=== PATIENT | male | born 1955 | race Caucasian/White ===

== ENCOUNTER → 2018-06-10 10:15 | Outpatient (CLI) | payer MEDICARE, BC, SELFPAY ==
--- NOTE | 2018-06-10 10:20 | DI.REPORT_ITS ---
SYMPTOM/DIAGNOSIS: F/U LT ANKLE FUSION LEFT ANKLE: Two views. Comparison is made with 03/2018 and 04/2018. There are again seen post surgical changes of a left ankle fusion. No change in alignment of the orthopedic hardware or osseous components is noted. IMPRESSION: Stable left ankle fusion.
== END ==
PROVIDERS: PCP Internal Medicine; Visit Provider Student in an Organized Health Care Education/Training Program
DX: Z47.89 Encounter for other orthopedic aftercare (principal); M19.072 Primary osteoarthritis, left ankle and foot; Z98.1 Arthrodesis status
CPT/HCPCS: 73600; L1902

== ENCOUNTER 2018-07-25 13:24 | Outpatient (CLI) | payer MEDICARE, BC, SELFPAY ==
--- NOTE | 2018-07-25 13:15 | DI.RAD_ITS ---
SYMPTOMS/DIAGNOSIS: S/P LT ANKLE FUSION LEFT ANKLE: Three views were obtained. Note is made of previously noted tibiotalofibular fusion with multiple fixation screws in place. The alignment appears unchanged in comparison with examination of June 10.
== END 2018-07-25 13:44 ==
PROVIDERS: Visit Provider Student in an Organized Health Care Education/Training Program
DX: M19.172 Post-traumatic osteoarthritis, left ankle and foot (principal); Z98.1 Arthrodesis status; Z47.89 Encounter for other orthopedic aftercare; I10 Essential (primary) hypertension; E11.9 Type 2 diabetes mellitus without complications; Z79.84 Long term (current) use of oral hypoglycemic drugs
CPT/HCPCS: 99213; 73610

== ENCOUNTER 2019-01-04 08:42 | Outpatient (CLI) | payer MEDICARE, BC, SELFPAY ==
--- NOTE | 2019-01-04 08:25 | DI.RAD_ITS ---
SYMPTOMS/DIAGNOSIS: LT ANKLE PAIN, S/P FUSION LEFT ANKLE: Comparison is made with [id number]. Hardware is again noted across the tibiotalar and fibulotalar as well as fibular tibial joints. There has been some interval increase in healing of the distal fibular osteotomy. The bones appear osteoporotic from disuse.
== END 2019-01-04 09:02 ==
PROVIDERS: PCP Internal Medicine; Referring Provider Internal Medicine; Visit Provider Student in an Organized Health Care Education/Training Program
DX: M25.572 Pain in left ankle and joints of left foot (principal); M81.0 Age-related osteoporosis without current pathological fracture; Z98.1 Arthrodesis status
CPT/HCPCS: 99213; 73610

== ENCOUNTER 2019-01-10 01:34 | Outpatient (CLI) | payer MEDICARE, BC, SELFPAY ==
--- NOTE | 2019-01-10 14:13 | DI.CT_ITS ---
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 The patient is status post fusion of the mortise joint, three threaded screws in place. Portions of the joint remain visible. There are prominent degenerative changes. The findings would be consistent with a failed left ankle fusion.
== END 2019-01-10 01:54 ==
PROVIDERS: PCP Internal Medicine; Visit Provider Student in an Organized Health Care Education/Training Program
DX: M96.0 Pseudarthrosis after fusion or arthrodesis (principal)
CPT/HCPCS: 73700

== ENCOUNTER 2019-02-17 08:47 | Outpatient (CLI) | payer MEDICARE, BC, SELFPAY ==
[2019-02-17 10:28] LABS: HCT 39.9 % (40.0-50.0); HGB 14.3 g/dL (13.5-17.5); Mean Corp. HGB Concentration 35.8 g/dL (32.0-36.0); Mean Corpuscular Hemoglobin 30.2 pg (27.0-33.0); Mean Corpuscular Volume 84.2 fL (80-95); Mean Platelet Volume 8.8 fL (8.0-11.0); Platelet Count 176 x1000/uL (130-400); RBC 4.74 m/cumm (4.50-6.00); RBC Distribution Width 14.5 % (11.8-14.1); White Blood Cell Count 7.62 k/cumm (4.4-10.8)
[2019-02-17 12:05] LABS: C-Reactive Protein 0.15 mg/dL (0.0-0.3)
--- NOTE | 2019-02-19 19:02 | W.PREOPHP ---
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 Details of surgery were discussed with patient as well as risks and pertinent anatomy. All questions were answered. History of Present Illness Chief Complaint: Left ankle pain Narrative: Ney is a 63-year-old male who comes in today for preop visit for his right ankle revision arthrodesis. He had previous fracture with surgical fixation, although it does not appear that there was any hardware put in, of his left ankle. This subsequently led to some severe arthritis which was treated with a fusion about [address] Mcbride. Since that fusion, some of the articular surfaces did not completely fuse, and he started to fall into a valgus position of the left ankle. He also has had continued ankle pain with ambulation that gets worse with continued ambulation. He now has resorted to walking with a cane. Because of the distorted anatomy of the ankle, and the continued pain that Ney is having, Dr. Mcbride does offer a repeat fusion of the left ankle with removal of current hardware and the placement of a nail fixation. He agrees with this plan and is anxious to proceed. Pertinent Surgical Information Previous heart history with persistent SVT that was corrected with ablation. He has had a left ankle fusion here since this ablation with no complications. Patient denies history of CVA, [place], angina, asthma, COPD, renal or liver disorders, hepatitis, bleeding disorders, immune or thyroid disorders. No complications from anesthesia. Review of Systems Constitutional Denies fever(s) ENT Denies dizziness and Denies sore throat Cardiovascular Denies chest pain, Denies palpitations and Denies dyspnea Respiratory Denies cough and Denies dyspnea Gastrointestinal Denies abdominal pain, Denies melena, Denies hematochezia, Denies diarrhea, Denies nausea and Denies vomiting Genitourinary Denies hematuria and Denies dysuria Neurologic Denies dizziness Endocrine Denies palpitations [facility] Medical History Gout (Acute 05/31/13) Nonunion of subtalar arthrodesis (Chronic) Anxiety DM (diabetes mellitus) GERD with esophagitis HTN (hypertension) Primary malignant neoplasm of colon SVT (supraventricular tachycardia) UC (ulcerative colitis) Surgical History Supraventricular tachycardia (Acute 02/16/13) Hx of ankle fusion (Acute) History of tonsillectomy (Chronic) Colonoscopy - MAC (03/15/17) EGD - MAC (03/15/17) Hemicolectomy (11/25/09) nonunion left humerus Social History Smoking/Tobacco Use Status: Former Tobacco Use Drug use: Daily Substance use type: marijuana Meds Home Medications Medication Instructions Recorded Confirmed Type aspirin 1 tab PO HS tab-cap 02/16/13 02/17/19 History blood-glucose meter [FreeStyle kit 02/16/13 02/17/19 History Lite Meter] FreeStyle Lite Strips #100 strip 07/24/13 02/17/19 History cholecalciferol (vitamin D3) 2,000 unit PO DAILY 08/03/16 02/17/19 History [Vitamin D3] omega-3 fatty acids-fish oil [Fish 1 ea PO HS 01/13/17 02/17/19 History Oil] saw palmetto-pumpkin seed oil 320 mg PO DAILY 12/01/17 02/17/19 History acetaminophen [Acetaminophen Extra 1,000 mg PO TID #90 tab 02/22/18 02/17/19 Rx Strength] lisinopril 1 tab PO DAILY #90 tab-cap 03/15/18 02/17/19 Rx metformin 1,000 mg PO BID #180 tab-cap 03/15/18 02/17/19 Rx quetiapine 25 mg PO BID #180 tab-cap 03/15/18 02/17/19 Rx cyanocobalamin (vitamin B-12) 1,000 mcg PO DAILY #90 tab-cap 04/18/18 02/17/19 Rx [Vitamin B-12] allopurinol 1 tab PO HS 02/17/19 02/17/19 History omeprazole 40 mg PO HS 02/17/19 02/17/19 History sertraline [Zoloft] 1.5 tab PO DAILY 02/17/19 02/17/19 History Allergies Allergy/AdvReac Type Severity Reaction Status Date / Time No Known Allergies Allergy Unverified 02/17/19 08:09 Exam HENMT Head: normocephalic and atraumatic General nose exam: no nasal discharge Throat: uvula midline and no uvular edema Other: soft palate rises symmetrically, no erythema Eyes Conjunctivae: conjunctivae normal Sclera: sclerae normal Pupils: PERRL Resp Effort & Inspection: normal respiratory effort Auscultation: clear to auscultation bilaterally and no wheezes Cardio Rate: regular rate Rhythm: regular rhythm Heart Sounds: S1 normal, S2 normal and no murmurs GI Palpation: soft, no hepatosplenomegaly and nontender Auscultation: normal bowel sounds Results Labs : 02/17/19 10:20
--- NOTE | 2019-02-19 19:12 | HPE_ITS ---
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 Details of surgery were discussed with patient as well as risks and pertinent an atomy. All questions were answered. History of Present Illness Chief Complaint: Left ankle pain Narrative: Ney is a 63-year-old male who comes in today for preop visit for his right ankle revision arthrodesis. He had previous fracture with surgical fixation, although it does not appear that there was any hardware put in, of his left ankle. This subsequently led to some severe arthritis which was treated with a fusion about [address] Mcbride. Since that fusion, some of the articular surfaces did not completely fuse, and he started to fall into a valgus position of the left ankle. He also has had continued ankle pain with ambulation that gets worse with continued ambulation. He now has resorted to walking with a cane. Because of the distorted anatomy of the ankle, and the continued pain that Ney is having, Dr. Mcbride does offer a repeat fusion of the left ankle with removal of current hardware and the placement of a nail fixation. He agrees with this plan and is anxious to proceed. Pertinent Surgical Information Previous heart history with persistent SVT that was corrected with ablation. He has had a left ankle fusion here since this ablation with no complications. Patient denies history of CVA, [place], angina, asthma, COPD, renal or liver disorders, hepatitis, bleeding disorders, immune or thyroid disorders. No complications from anesthesia. Review of Systems Constitutional Denies fever(s) ENT Denies dizziness and Denies sore throat Cardiovascular Denies chest pain, Denies palpitations and Denies dyspnea Respiratory Denies cough and Denies dyspnea Gastrointestinal Denies abdominal pain, Denies melena, Denies hematochezia, Denies diarrhea, Denies nausea and Denies vomiting Genitourinary Denies hematuria and Denies dysuria Neurologic Denies dizziness Endocrine Denies palpitations [facility] Medical History Gout (Acute 05/31/13) Nonunion of subtalar arthrodesis (Chronic) Anxiety DM (diabetes mellitus) GERD with esophagitis HTN (hypertension) Primary malignant neoplasm of colon SVT (supraventricular tachycardia) UC (ulcerative colitis) Surgical History Supraventricular tachycardia (Acute 02/16/13) Hx of ankle fusion (Acute) History of tonsillectomy (Chronic) Colonoscopy - MAC (03/15/17) EGD - MAC (03/15/17) Hemicolectomy (11/25/09) nonunion left humerus Social History Smoking/Tobacco Use Status: Former Tobacco Use Drug use: Daily Substance use type: marijuana Meds Home Medications Medication Instructions Recorded Confirmed Type aspirin 1 tab PO HS tab-cap 02/16/13 02/17/19 History blood-glucose meter [FreeStyle kit 02/16/13 02/17/19 History Lite Meter] FreeStyle Lite Strips #100 strip 07/24/13 02/17/19 History cholecalciferol (vitamin D3) 2,000 unit PO DAILY 08/03/16 02/17/19 History [Vitamin D3] omega-3 fatty acids-fish oil [Fish 1 ea PO HS 01/13/17 02/17/19 History Oil] saw palmetto-pumpkin seed oil 320 mg PO DAILY 12/01/17 02/17/19 History acetaminophen [Acetaminophen Extra 1,000 mg PO TID #90 tab 02/22/18 02/17/19 Rx Strength] lisinopril 1 tab PO DAILY #90 tab-cap 03/15/18 02/17/19 Rx metformin 1,000 mg PO BID #180 tab-cap 03/15/18 02/17/19 Rx quetiapine 25 mg PO BID #180 tab-cap 03/15/18 02/17/19 Rx cyanocobalamin (vitamin B-12) 1,000 mcg PO DAILY #90 tab-cap 04/18/18 02/17/19 Rx [Vitamin B-12] allopurinol 1 tab PO HS 02/17/19 02/17/19 History omeprazole 40 mg PO HS 02/17/19 02/17/19 History sertraline [Zoloft] 1.5 tab PO DAILY 02/17/19 02/17/19 History Allergies Allergy/AdvReac Type Severity Reaction Status Date / Time No Known Allergies Allergy Unverified 02/17/19 08:09 Exam HENMT Head: normocephalic and atraumatic General nose exam: no nasal discharge Throat: uvula midline and no uvular edema Other: soft palate rises symmetrically, no erythema Eyes Conjunctivae: conjunctivae normal Sclera: sclerae normal Pupils: PERRL Resp Effort & Inspection: normal respiratory effort Auscultation: clear to auscultation bilaterally and no wheezes Cardio Rate: regular rate Rhythm: regular rhythm Heart Sounds: S1 normal, S2 normal and no murmurs GI Palpation: soft, no hepatosplenomegaly and nontender Auscultation: normal bowel sounds Results Labs : 02/17/19 10:20
== END 2019-02-17 09:07 ==
PROVIDERS: PCP Internal Medicine; Visit Provider Student in an Organized Health Care Education/Training Program
DX: S92.102 Unspecified fracture of left talus (principal); M96.0 Pseudarthrosis after fusion or arthrodesis; I10 Essential (primary) hypertension; E11.9 Type 2 diabetes mellitus without complications; K21.9 Gastro-esophageal reflux disease without esophagitis; Z01.818 Encounter for other preprocedural examination; X58.XXXA Exposure to other specified factors, initial encounter
CPT/HCPCS: 36415; 85027; NC; 86140

== ENCOUNTER 2019-02-21 09:22 | Observation (INO) | payer MEDICARE, BC, SELFPAY ==
[2019-02-21] VITALS (13 sets, daily range): BP systolic 123–155; BP diastolic 63–95; PULSE 64–85; RESP 14–20; TEMP 36.3–37.1; O2SAT 94–100
[2019-02-21] MEDS: Lactated Ringers 1,000 ML 80 ML IV ×3 (09:50→17:15)
--- NOTE | 2019-02-21 10:26 | DI.RAD_ITS ---
SYMPTOMS/DIAGNOSIS: NONUNION OF SUBTALAR ARTHRODESIS C-ARM FLUOROSCOPY OF THE LEFT ANKLE: Fluoroscopy Time: 135.7 seconds/3.97 mGy Fluoroscopy was provided in the OR for Dr. Mcbride. Hard copy images show placement of an intramedullary flora through the calcaneus, talus and into the distal tibia for ankle fusion. Please see procedure note for details.
[2019-02-21] MEDS: ceFAZolin 2 GM/50 ML BAG IVPB (11:20)
[2019-02-21] MEDS: Bupivacaine 0.25% Pres-Free 30 ML VIAL (14:05)
[2019-02-21] MEDS: metFORMIN 500 MG TAB 1000 MG PO (17:32)
--- NOTE | 2019-02-21 18:24 | NUR.NOTE ---
Nursing Note: At 1620 hrs. Pt received from PACU staff Christina via stretcher, alert and oriented x 4., S/P L ankle hardware removed and Left toe fusion. Affected foot casted and slap inplaced with ariadna wrap drsg and draining liquid and with pinkish discharge in small amount noted. PACU nurse stated wet underneath because of the cast applied. Continue to monitor.
[2019-02-21] MEDS: Acetaminophen 500 MG TAB 1000 MG PO (19:52)
[2019-02-21] MEDS: Celecoxib 100 MG CAP 200 MG PO (19:52)
[2019-02-21] MEDS: QUEtiapine 25 MG TAB PO (19:52)
[2019-02-21] MEDS: Aspirin 325 MG TAB PO (21:38)
[2019-02-21] MEDS: Omeprazole 20 MG CAPCR 40 MG PO (21:38)
[2019-02-21] MEDS: Allopurinol 300 MG TAB PO (21:38)
[2019-02-21] MEDS: Omega-3 Fatty Acids 1000 MG CAP PO (21:39)
[2019-02-22 03:45] VITALS: BP 126/77; PULSE 70; RESP 18; TEMP 36.6; O2SAT 98
[2019-02-22] MEDS: Lactated Ringers 1,000 ML 80 ML IV (06:31)
[2019-02-22 07:27] VITALS: BP 138/78; PULSE 75; RESP 15; TEMP 36.9; O2SAT 95
--- NOTE | 2019-02-22 07:44 | DSE_ITS ---
Date of service: 02/22/19 Time of Service: 07:42 DS: Diagnosis Discharge Diagnosis (1) Ankle pain, left: Status: Acute (2) Arthritis of left ankle: Status: Acute (3) Failure of joint fusion: Status: Acute Discharge Plan Disposition Patient Disposition: HOME Condition: Good Discharge Details Reason For Visit: LEFT ANKLE ARTHRITIS Admit Date/Time: 02/21/19 09:22 Admit Provider: Demond Mcbride Attending Provider: Demond Mcbride Primary Care Provider: Aliza Liriano Hospital Course Hospital Course: Patient was admitted to the medical/surgical floor following the procedure for pain control and evaluation. It was tolerated well without any notable medical, surgical, or anesthetic complications. There was some serosanguineous discharge from the dressing which was reinforced and appeared benign. No acute medical issues. He was safe for discharge home. Home Meds and New Rx's Prescriptions: New celecoxib 200 mg capsule 200 mg PO BID PRN (Reason: pain) Qty: 60 RF: 1 oxycodone 5 mg tablet 5 mg PO Q4H Qty: 15 RF: 0 Continued aspirin 325 MG tablet 1 tab PO HS RF: 0 blood-glucose meter [FreeStyle Lite Meter] 1 EACH kit 1 kit Miscellaneous DIRECTED RF: 0 FreeStyle Lite Strips 1 EACH strip 1 strip Miscellaneous DAILY Qty: 100 RF: 6 omega-3 fatty acids-fish oil [Fish Oil] 1 EACH capsule 1 ea PO HS RF: 0 saw palmetto-pumpkin seed oil 160 MG capsule 320 mg PO DAILY RF: 0 quetiapine 25 MG tablet 25 mg PO BID Qty: 180 RF: 2 lisinopril 20 MG tablet 1 tab PO DAILY Qty: 90 RF: 4 metformin 1,000 MG tablet 1,000 mg PO BID Qty: 180 RF: 4 cyanocobalamin (vitamin B-12) [Vitamin B-12] 1,000 MCG tablet 1,000 mcg PO DAILY Qty: 90 RF: 6 sertraline [Zoloft] 100 MG tablet 1.5 tab PO DAILY RF: 0 omeprazole 40 MG capsule,delayed release(DR/EC) 40 mg PO HS RF: 0 allopurinol 300 MG tablet 1 tab PO HS RF: 0 acetaminophen [Acetaminophen Extra Strength] 500 MG tablet 1,000 mg PO TID Qty: 90 RF: 3 Discontinued cholecalciferol (vitamin D3) [Vitamin D3] 1,000 UNIT capsule 2,000 unit PO DAILY RF: 0 Discharge Instructions Additional Instructions: Activity: You are NON WEIGHT BEARING. You should keep the leg elevated as much as possible. You may wiggle your toes and move your hip and knee. Dressings: You should keep your splint clean and dry. Do NOT get wet or dirty. If you have issues with your splint, please call and ask for Dr. Mcbride. Medications: - You should take Tylenol and Celebrex around the clock for baseline pain. If the Celebrex is too expensive, you may take ibuprofen 600 mg 3 times daily. - You have been prescribed a stronger narcotic, oxycodone, for breakthrough pa in. - You should take aspirin per usual for blood clot prevention. Follow-up: 2 weeks Referrals: Demond Mcbride MD [ [facility]] - Activity:: Non weight bearing Equipment/Supplies:: No Equipment Needed Diet:: As Tolerated Discharge Orders Discharge Orders: Discharge Order (Routine); Ordered 02/22/19 Ordered By: Demond Mcbride DS: Data Vitals/I&O Vitals and I&O: Vital Signs Temperature 36.9 C 02/22/19 07:27 Temperature Source Tympanic 02/22/19 07:27 Pulse 75 02/22/19 07:27 Pulse Rhythm Regular 02/22/19 00:00 Respiratory Rate 15 02/22/19 07:27 Respiratory Effort 02/22/19 00:00 Respiratory Depth Normal 02/22/19 00:00 Respiratory Pattern Normal 02/22/19 00:00 Blood Pressure 138/78 02/22/19 07:27 Pulse Oximetry 95 02/22/19 07:27 Respiratory End-tidal CO2 36 02/21/19 15:55 Oxygen Delivery Method Room Air 02/22/19 07:27 Oxygen Flow Rate 0 02/22/19 07:27 Pain Level 0 02/22/19 03:45 Intake & Output 02/21/19 02/21/19 02/22/19 11:59 23:59 11:59 Intake Total 50 / 2403.333 2353.333 / 2403.333 1100 / 1100 Output Total 600 / 600 250 / 250 Balance 50 / 8746.047 3330.333 / 1803.333 850 / 850 Weight 107.5 kg 107.5 kg Intake: IV 50 / 2036.602 1187.333 / 4259.125 2338 / 1100 Oral 840 / 840 Output: Urine 300 / 300 250 / 250 Estimated Blood Loss 300 / 300 Other: Urine Color Yellow Light Candie Urine Appearance Clear Clear Urine Odor Normal Normal Comment VOID X 1, REPORTED BY PT AND PREV NURSE Emesis Description None Voiding Methods Urinal Urinal [facility] Medical History Gout (Acute 05/31/13) Nonunion of subtalar arthrodesis (Chronic) Anxiety DM (diabetes mellitus) GERD with esophagitis HTN (hypertension) Primary malignant neoplasm of colon SVT (supraventricular tachycardia) UC (ulcerative colitis) Surgical History Supraventricular tachycardia (Acute 02/16/13) Hx of ankle fusion (Acute) History of tonsillectomy (Chronic) Colonoscopy - MAC (03/15/17) EGD - MAC (03/15/17) Hemicolectomy (11/25/09) nonunion left humerus Family History Mother Diabetes Essential hypertension Dementia Heart disease Stroke Sister Diabetes Heart disease Neoplasm Brother Hyperlipidemia Social History Smoking/Tobacco Use Status: Former Tobacco Use Drug use: Daily Substance use type: marijuana
[2019-02-22] MEDS: Sertraline 50 MG TAB 150 MG PO (08:40)
[2019-02-22] MEDS: metFORMIN 500 MG TAB 1000 MG PO (08:40)
[2019-02-22] MEDS: Celecoxib 100 MG CAP 200 MG PO (08:40)
[2019-02-22] MEDS: Lisinopril 20 MG TAB PO (08:41)
[2019-02-22] MEDS: QUEtiapine 25 MG TAB PO (08:41)
[2019-02-22] MEDS: Cyanocobalamin 500 MCG TAB 1000 MCG PO (08:41)
[2019-02-22] MEDS: Acetaminophen 500 MG TAB 1000 MG PO (08:41)
--- NOTE | 2019-02-22 08:58 | ROE_ITS ---
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 SURGERY Hardware removal of left ankle with subtalar and tibiotalar fusion using an intramedullary nail. SURGEON Demond Mcbride M.D. CALL CENTER AGENT Merlyn Chan PA-C ANESTHESIA General with popliteal block. ESTIMATED BLOOD LOSS 300 cc COMPLICATIONS None DISPOSITION The patient was awakened from anesthesia and taken back to PACU in stable condition. INDICATIONS Ney is a 63 year old who had severe ankle arthritis with deformity. He had tried multiple conservati ve treatment options, but continued to have pain in the left ankle. Eventually, he underwent a left a nkle fusion by myself. He had initial good response to the surgery and he was able to increase his we ight bearing, but reached a point where he was unable to progress as fast or as fully as we were [place] for. The ankle fell into some slight valgus and the union did not seem to complete itself with a p artial union of the tibial talar joint. Given the valgus malalignment and the partial union, I recomm ended revision fusion. He also had signs of subtalar arthritis and given the deformity, I recommended that we treat this with a hindfoot nail and fuse both joints. I reviewed the risks of the procedure to include bleeding, infection, pain, stiffness, damage to nerves and vessels, damage to muscle and t endons, blood clot, skin breakdown. Despite these risks, he elected to proceed. PROCEDURE DESCRIPTION Ney was greeted in the Preoperative Holding Area. His identity was confirmed and the correct side wa s identified and marked. The consent was reviewed with the patient and signed. The patient was ta rhonda back to the Operating Room. A popliteal nerve block was then administered. He was then given a g eneral anesthetic. He was placed in the supine position with all bony prominences well padded. A bum p was placed underneath the left leg. A nonsterile tourniquet was placed high up on the left thigh. A bone foam leg positioner was used to elevate the leg off the table. The left leg was then prepped w ith ChloraPrep and draped in a standard fashion. Prophylactic antibiotics in the form of Cefazolin w ere given. A timeout was performed for safe surgery. The previous incision site was marked on the skin. This was extended both proximally and distally. Th e skin was incised sharply. This was taken down to full thickness flaps all the way down to the fibul a and into the subtalar joint location. The extensor digitorum brevis was split longitudinally distal ly and the ligaments around the distal and anterior fibula were resected. I was able to show the two screws of the lateral fibula. These were removed without difficulty. They were slightly loose. The tw o screws from the anterior aspect of the tibia and the talus were also removed. At this point, it was then noted that the talus was mobile. While it was not able to move completely, there was definitely movement within the remnant tibiotalar joint. The fibula had healed its previou s osteotomy. I therefore used the oscillating saw to create a new angled osteotomy approximately 8 ce ntimeters proximal to the fibula. The fibula was then dissected anteriorly and distally and rotated e xternally to expose the tibiotalar joint. It was then noticed that the talus was moving in a subtle f ashion, thus corresponding to the partial union. I used an osteotome to break apart the previous unio n site. Prior to entering in the tibiotalar joint, there was one posterior screw, which was removed. This was a percutaneously placed screw and it was able to be removed in the same percutaneous fashion using a K-wire to cannulate the screw. Once the screw was removed, the tibiotalar joint was then opened up w ith an osteotome. The joint was inspected with the Lamina cone classifier tender and joint distractor. A bur was u sed break through some of the eburnated and hard surfaces of the talus and the tibia. Effort was mad e to get as medial as possible from the medial shoulder to prevent any residual valgus malalignment. There was no cartilage remaining, but there was definitely no decent appearing subchondral bone. The bone on the talus was very dense and then very soft. This egg-shell type bone was difficult to prepar e. Using an osteotome, I fish scaled both surfaces of the tibia and the talus. I also used a microfra cture awl to make penetrating holes through both surfaces. The Lamina cone classifier tender was re-positioned and further preparation was performed. The Lamina cone classifier tender was then removed. Our attention was turned to the subtalar joint. Any of the ligamentous connections between the talus and the calcaneus were dissected to allow entry into the subtalar joint. This was distracted using th e Lamina cone classifier tender. All cartilage was then removed with a curette. There was some notable focal areas of arthritic change of address clerk the lateral aspect of the posterior facet of the subtalar joint. However, el sewhere there was notable cartilage. The cartilage was removed. Subchondral bone was then prepared us ing the fish scale technique using the osteotome. I also then penetrated the subchondral bone with a microfracture awl. Once again, the Lamina cone classifier tender was re-positioned and the focus was on the anterior medial facets. Th jose were a little bit more difficult to reach and they were prepared accordingly. The ankle was then checked for alignment. It still maintained some valgus, but appeared to be a normal constitutional v algus of the foot in a weightbearing position. The joint surfaces were easily re-approximated without any significant gapping. Therefore, we proceeded with placement of the nail. While holding the ankle in a relatively anatomic position, a starting point was localized in line wit h the medullary canal of the tibia and the lateral portion of the calcaneal tuberosity. The guidewire was placed percutaneously through the heel and onto the calcaneus. It was advanced at a 7-degree angle through the calcaneus and into the talus. The tibiotalar joint was distracted to ensu re that the guide pin was coming out through the central portion of the talus. X-ray was also used melissa in AP and lateral planes to confirm this adequate positioning. Once this was finalized, the skin a nd fat over the plantar aspect of the heel around the pin was incised. The plantar aponeurosis was al so incised. The soft tissue reamer was taken down to bone and the opening reamer was used to open up the calcaneus and talus. The 13-mm reamer was taken through the talus completely, but not into the ti kai. The ankle and subtalar joint was then placed in varus to allow more direct access to the tibia. A 5-mm opening reamer was then placed through the initial hole and into the tibia. Once this had pene trated the tibia, it was removed and a ball tip guidewire was placed through the heel and into the ti kai. Flexible reamers were used to open up the tibial medullary space starting from 8.5 millimeters a nd going up to 14.5 millimeters. A 13-mm x 180 mm nail was selected. The targeting guide was attached and confirmed to be aligned appropriately. I then placed the nail into the ankle without difficulty by hand. A few light mallet blows secured it into appropriate-looking position. Once in this position , the x-ray was used to confirm appropriately alignment with no inadvertent penetration through the t ibia. The targeting guide was attached and two posterior to anterior locking screws were placed. The screw passer drill and then the screws were placed. These both had great bite within the calcaneus. I then placed bone graft, which was collected from the initial dissection and joint preparation, as well as from the reaming combined with some demineralized bone matrix. This was placed within the subtalar fito int and the nail was malleted to compress the subtalar joint. With the targeting guide in place, I th en went to position the talus screw. Unfortunately, there was no adequate bone in this area. Since w hector had already fixed the calcaneus with excellent purchase, I did not want to move the nail and then r isk calcaneal purchase weight he screws. Therefore, after trying multiple times to utilize the talus nail, I did not. I eventually decided to just fix it against the tibia. More bone graft and deminer alized bone matrix was placed in the tibiotalar joint. Once again, this was all then malleted, compre ssing the joints of the tibiotalar and subtalar. With this in position, the targeting arm was once a gain placed for medial to lateral screws. Two screws were placed, one in the dynamic hole and one in the static hole. These were placed without difficulty. The targeting guide was removed and final x-r ays were performed showing adequate alignment of the ankle. The tourniquet was used for a portion of the case for joint preparation, but was removed for the nailing process. There was a persistent ooze from all the bony surfaces, but no abundant bleeding. The wounds were thoroughly irrigated. The fibul a was not secured with any screws, but simply soft tissue attachments from the anterior soft tissues, which were re-approximated to the posterior soft tissues. This deep layer was closed with #0- Vicry l. The deeper layers were closed with #3-0 Vicryl and the skin was closed with #4-0 Nylon. A mixture of bupivacaine and Exparel was used throughout all the deep tissues and subcutaneous tissues, focusin g primarily on the lateral wound and against the periosteum of the tibia, talus, calcaneus. The remai nder of the wounds were closed with #3-0 Vicryl and a #4-0 Nylon. The foot was dressed with Xeroform , 4x4s, ABD, Webril, and a posterior slab splint. At the end of the case, all counts were correct. He was taken back to the PACU in stable condition.
== END 2019-02-22 08:54 | disposition home or self-care (01) ==
LOC: PDS 09:36 → MS 16:26 → PDS 16:30 → MS 16:30
PROVIDERS: Admitting Provider Student in an Organized Health Care Education/Training Program; PCP Internal Medicine; Visit Provider Student in an Organized Health Care Education/Training Program
PROC: 0SGJ04Z Fusion of Left Tarsal Joint with Internal Fixation Device, Open Approach (ICD-10-PCS; CPT 27870; principal; 2019-02-21 10:45)
PROC: 0SGJ04Z Fusion of Left Tarsal Joint with Internal Fixation Device, Open Approach (ICD-10-PCS; CPT 28740; 2019-02-21 10:45)
DX: M25.572 Pain in left ankle and joints of left foot (principal); M19.072 Primary osteoarthritis, left ankle and foot; M96.0 Pseudarthrosis after fusion or arthrodesis; Z98.1 Arthrodesis status; E11.9 Type 2 diabetes mellitus without complications; K21.9 Gastro-esophageal reflux disease without esophagitis; I10 Essential (primary) hypertension; F41.9 Anxiety disorder, unspecified
CPT/HCPCS: 27870; 28725; 20680; C1713; NC; 73600; G0378; J0131; J0690; J1100; J2250; J2405; J3010

== ENCOUNTER 2019-03-08 09:55 | Outpatient (CLI) | payer MEDICARE, BC, SELFPAY ==
--- NOTE | 2019-03-08 09:47 | DI.RAD_ITS ---
SYMPTOM/DIAGNOSIS: S/P LT HIND FOOT NAIL, F/U LEFT ANKLE: Since the previous study, multiple screws have been removed from the mortise joint and distal fibula. Today, note is made of an intramedullary flora and screw fixation device which traverses the distal tibia and mortise joint and is fixed distally with screws in the calcaneus.
== END 2019-03-08 10:15 ==
PROVIDERS: PCP Internal Medicine; Referring Provider Internal Medicine; Visit Provider Student in an Organized Health Care Education/Training Program
DX: M19.072 Primary osteoarthritis, left ankle and foot (principal); Z98.1 Arthrodesis status; Z47.89 Encounter for other orthopedic aftercare
CPT/HCPCS: L4361; 73610

== ENCOUNTER 2019-03-20 10:17 | Outpatient (CLI) | payer MEDICARE, BC, SELFPAY ==
[2019-03-20 13:09] LABS: ALT 31 U/L (12-78); AST 21 U/L (15-37); Albumin 4.1 g/dL (3.4-5.0); Alkaline Phosphatase 184 U/L (46-116); Anion Gap 10.8 mmol/L (3-11); BUN 18 mg/dL (7-18); Bilirubin, Total 0.4 mg/dL (0.2-1.0); CO2 27.2 mmol/L (21.0-32.0); CREATININE 0.99 mg/dL (0.70-1.30); Calcium 9.3 mg/dL (8.5-10.1); Chloride 103 mmol/L (98-107); Glucose 182 mg/dL (70-100); Potassium 4.5 mmol/L (3.5-5.1); Sodium 141 mmol/L (136-145); Total Protein 7.9 g/dL (6.4-8.2); Uric Acid 5.4 mg/dL (3.5-7.2)
[2019-03-20 13:11] LABS: Hemoglobin A1C 6.8 % (4.5-6.2)
[2019-03-21 10:33] LABS: PSA, Screening 1.9 ng/ml (0-4.5)
== END 2019-03-20 10:37 ==
PROVIDERS: PCP Internal Medicine; Visit Provider Internal Medicine
DX: E79.0 Hyperuricemia without signs of inflammatory arthritis and tophaceous disease (principal); E11.9 Type 2 diabetes mellitus without complications; Z12.5 Encounter for screening for malignant neoplasm of prostate
CPT/HCPCS: 36415; 80053; 84153; 83036; 84550

== ENCOUNTER 2019-04-05 11:18 | Outpatient (CLI) | payer MEDICARE, BC, SELFPAY ==
--- NOTE | 2019-04-05 11:14 | DI.RAD_ITS ---
SYMPTOMS/DIAGNOSIS: S/P LT ANKLE HARDWARE REMOVAL LEFT ANKLE: Three views were obtained and show previously described ankle/hindfoot fusion with fixation flora extending from the tibia through the talus and calcaneus and two fixation screws in the calcaneus. The alignment appears essentially unchanged in comparison with examination of 03/08. Note is again made of nondisplaced fracture of the distal fibula.
== END 2019-04-05 11:38 ==
PROVIDERS: PCP Internal Medicine; Referring Provider Internal Medicine; Visit Provider Student in an Organized Health Care Education/Training Program
DX: M19.072 Primary osteoarthritis, left ankle and foot (principal); Z47.89 Encounter for other orthopedic aftercare; Z98.1 Arthrodesis status; Z87.81 Personal history of (healed) traumatic fracture; E11.9 Type 2 diabetes mellitus without complications; I10 Essential (primary) hypertension
CPT/HCPCS: 73610

== ENCOUNTER 2019-05-03 10:50 | Outpatient (CLI) | payer MEDICARE, BC, SELFPAY ==
--- NOTE | 2019-05-03 10:30 | DI.RAD_ITS ---
SYMPTOM/DIAGNOSIS: F/U LT ANKLE HARDWARE REMOVAL LEFT ANKLE: Three views. Comparison 04/05/19. There are post surgical changes of a left talocalcaneal fusion. The orthopaedic hardware appears stable. No evidence of hardware failure is seen. The old left distal fibular fracture appears stable. No new fractures or dislocations are present. There is persistent soft tissue swelling about the ankle.
== END 2019-05-03 11:10 ==
PROVIDERS: PCP Internal Medicine; Referring Provider Internal Medicine; Visit Provider Student in an Organized Health Care Education/Training Program
DX: M19.072 Primary osteoarthritis, left ankle and foot (principal); M25.572 Pain in left ankle and joints of left foot; Z47.89 Encounter for other orthopedic aftercare; Z98.1 Arthrodesis status
CPT/HCPCS: 73610

== ENCOUNTER 2019-06-26 09:27 | Outpatient (CLI) | payer MEDICARE, BC, SELFPAY ==
--- NOTE | 2019-06-26 09:22 | DI.RAD_ITS ---
SYMPTOMS/DIAGNOSIS: S/P LT ANKLE HARDWARE REMOVAL, FUSION LEFT ANKLE: The patient is status post left talocalcaneal fusion. The orthopedic hardware remains in good position when compared with the previous images. Also an old left distal fibular fracture is unchanged. There is no evidence of a superimposed acute fracture or dislocation.
== END 2019-06-26 09:47 ==
PROVIDERS: PCP Internal Medicine; Visit Provider Physician Assistant
DX: M19.172 Post-traumatic osteoarthritis, left ankle and foot (principal); Z98.1 Arthrodesis status; Z87.81 Personal history of (healed) traumatic fracture; Z47.89 Encounter for other orthopedic aftercare
CPT/HCPCS: 99213; 73610

== ENCOUNTER 2019-08-14 10:20 | Outpatient (CLI) | payer MEDICARE, BC, SELFPAY ==
[2019-08-14 12:19] LABS: TSH (W/Ref FT4) 1.09 uIU/mL (0.36-3.74)
== END 2019-08-14 10:40 ==
PROVIDERS: PCP Internal Medicine; Visit Provider Internal Medicine
DX: F32.9 Major depressive disorder, single episode, unspecified (principal)
CPT/HCPCS: 36415; 84443

== ENCOUNTER 2019-08-21 10:44 | Outpatient (CLI) | payer MEDICARE, BC, SELFPAY ==
--- NOTE | 2019-08-21 10:08 | DI.RAD_ITS ---
EXAM: XR ANKLE LT COMPLETE INDICATION: SURGERY F/U. COMPARISON: XR ANKLE LT COMPLETE from 06/26/2019 TECHNIQUE: 2D digital imaging was performed. FINDINGS: There are again seen postsurgical changes of an ankle and talocalcaneal fusion. Orthopedic hardware consists of a flora extending from the distal tibia through the talus into the calcaneus with proximal and distal screws. The orthopedic hardware appears stable. The distal fibular osteotomy appears sta ble. There is atherosclerosis. IMPRESSION: Stable postsurgical changes of the ankle and hindfoot.
== END 2019-08-21 11:04 ==
PROVIDERS: PCP Internal Medicine; Visit Provider Student in an Organized Health Care Education/Training Program
DX: M19.072 Primary osteoarthritis, left ankle and foot (principal); Z98.1 Arthrodesis status; Z47.89 Encounter for other orthopedic aftercare
CPT/HCPCS: 99213; 73610

== ENCOUNTER 2019-09-15 07:04 | Outpatient (CLI) | payer MEDICARE, BC, SELFPAY ==
[2019-09-17 13:22] LABS: Lamotrigine 1.6 mcg/mL (2.5 - 15.0)
== END 2019-09-15 07:24 ==
PROVIDERS: PCP Internal Medicine; Visit Provider Internal Medicine
DX: F32.9 Major depressive disorder, single episode, unspecified (principal); Z51.81 Encounter for therapeutic drug level monitoring
CPT/HCPCS: 36415; 80175

== ENCOUNTER 2020-03-28 12:02 | Outpatient (REF) | payer MEDICARE, BC, SELFPAY ==
[2020-03-28 12:59] LABS: CREATININE 1.25 mg/dL (0.70-1.30); Estimated GFR 58.34 (mL/min/1.73m2); Potassium 4.3 mmol/L (3.5-5.1)
[2020-03-28 13:03] LABS: Hemoglobin A1C 7.3 % (3.8-5.6)
[2020-03-29 08:18] LABS: PSA, Screening 1.8 ng/mL (0.0-4.5)
== END 2020-03-28 12:22 ==
LOC: LBN 12:02
PROVIDERS: PCP Nurse Practitioner; Visit Provider Nurse Practitioner
DX: R39.15 Urgency of urination (principal); E11.9 Type 2 diabetes mellitus without complications; I10 Essential (primary) hypertension; Z12.5 Encounter for screening for malignant neoplasm of prostate
CPT/HCPCS: 84153; 82565; 83036; 84132

== ENCOUNTER 2020-05-20 11:47 | Outpatient (CLI) | payer MEDICARE, BC, SELFPAY | END 2020-05-20 12:07 | PROVIDERS: PCP Nurse Practitioner; Referring Provider Nurse Practitioner; Visit Provider Student in an Organized Health Care Education/Training Program | DX: G56.01 Carpal tunnel syndrome, right upper limb (principal); Z98.1 Arthrodesis status | CPT/HCPCS: 99213 ==

== ENCOUNTER 2020-05-31 07:51 | Outpatient (CLI) | payer MEDICARE, BC, SELFPAY ==
[2020-06-01 14:40] LABS: COVID-19 RT-PCR Result NEGATIVE (Negative)
== END 2020-05-31 08:11 ==
PROVIDERS: PCP Nurse Practitioner; Visit Provider Student in an Organized Health Care Education/Training Program
DX: Z11.59 Encounter for screening for other viral diseases (principal); Z01.818 Encounter for other preprocedural examination
CPT/HCPCS: U0003

== ENCOUNTER 2020-06-04 07:56 | Day surgery (SDC) | payer MEDICARE, BC, SELFPAY ==
[2020-06-04 08:00] VITALS: BP 112/69; PULSE 66; RESP 18; TEMP 36.4; O2SAT 96
[2020-06-04] MEDS: Lactated Ringers 1,000 ML 80 ML IV (08:53)
--- NOTE | 2020-06-04 09:30 | PDOC.DSDIS_ITS ---
Discharge Plan Disposition Patient Disposition: HOME Condition: Good Discharge Details Reason For Visit: Right Carpal Tunnel Syndrome Attending Provider: Demond Mcbride Primary Care Provider: Arline Murphy Home Meds and New Rx's Prescriptions: New hydrocodone-acetaminophen 5-325 mg tablet 1 tab PO Q8H PRN PRN (Reason: pain) Qty: 3 RF: 0 acetaminophen 500 mg tablet 500 mg PO Q6H PRN PRN (Reason: pain) Qty: 90 RF: 3 ibuprofen 600 mg tablet 600 mg PO TID PRNQty: 60 RF: 3 Continued (DME) pen needle, diabetic [1st Tier Unifine Pentips] 32 gauge x 5/32 needle See Rx Instructions .ROUTE .MEDSUPPLY Qty: 100 RF: 3 hydrochlorothiazide 12.5 mg capsule 12.5 mg PO DAILY Qty: 90 RF: 3 lisinopril 20 mg tablet 40 mg PO DAILY Qty: 90 RF: 4 sertraline [Zoloft] 100 mg tablet 200 mg PO DAILY Qty: 140 RF: 4 aspirin 325 MG tablet 1 tab PO HS RF: 0 (DME) blood-glucose meter [FreeStyle Lite Meter] 1 EACH kit 1 kit Miscellaneous DIRECTED RF: 0 (DME) FreeStyle Lite Strips 1 EACH strip 1 strip Miscellaneous DAILY Qty: 100 RF: 6 Fish Oil 1 EACH capsule 1 ea PO HS RF: 0 lamotrigine [Lamictal] 25 mg tablet 50 mg PO BID Qty: 360 RF: 4 Hold Instructions: Home Medication placed on hold at Doctor's office metformin 1,000 mg tablet 1,000 mg PO BID Qty: 180 RF: 4 omeprazole 40 mg capsule,delayed release(DR/EC) 40 mg PO HS Qty: 90 RF: 3 Basaglar KwikPen U-100 Insulin 100 unit/mL (3 mL) insulin pen 29 unit SC QPM RF: 0 allopurinol 300 mg tablet 300 mg PO DAILY RF: 0 Discharge Instructions Stand Alone Forms: Reed Pedroza Tunnel Release Referrals: Demond Mcbride MD [ [facility] STAFF PHYSICIAN] - Activity:: Elevate Remove Dressings/Wound Care:: 48 hours Shower/Bathe:: 48 hours Diet:: As Tolerated Discharge Orders Discharge Orders: Discharge Order (Routine); Ordered 06/04/20 Ordered By: Demond Mcbride DS: Diagnosis Discharge Diagnosis (1) Carpal tunnel syndrome of right wrist: Status: Acute
[2020-06-04] MEDS: ceFAZolin 2 GM/50 ML BAG IVPB (09:33)
[2020-06-04] MEDS: Sodium Bicarbonate 50 MEQ/50 ML VIAL (09:38)
--- NOTE | 2020-06-04 10:22 | W.PM.OP ---
Date of service: 06/04/20 Time of Service: 10:01 Operative Note Operative Note DATE OF PROCEDURE: 06/04/20 PRE-OP DIAGNOSIS: Right Carpal Tunnel Syndrome POST-OP DIAGNOSIS: same PROCEDURE: Right Endoscopic Carpal Tunnel Release SURGEON: Demond Mcbride ANESTHESIA: SENAIT ESTIMATED BLOOD LOSS: 0 PATHOLOGY: none sent TOURNIQUET TIME: 6 COMPLICATIONS: None Patient was transported to: same day Patient's condition: stable Indications: I have seen Ney in clinic for symptoms of carpal tunnel syndrome. The numbness, tingling, and pain limited function. Clinical exam findings confirmed the diagnosis of carpal tunnel syndrome. Nonoperative measures such as bracing, time, activity modifications had been tried but disability and pain persisted. I discussed carpal tunnel release with the patient. I reviewed the risks of the procedure to include, but not limited to, bleeding, infection, pain, stiffness, incomplete release, damage to nerves or vessels, persistent numbness, recurrence. Despite these risks, the patient elected to proceed. Findings: There was tightened carpal tunnel. This was dilated and released successfully with the endoscopic with increased space within the tunnel. The antebrachial fascia was released proximally freeing the median nerve at the wrist. Procedure Description: Ney was greeted in the preoperative holding area where the correct side was identified and marked. The consent was reviewed with the patient and signed. The history and physical was updated. All questions were answered. Ney was taken back to the operating room. The patient was placed into the supine position on the operating room table with the right arm on an arm board. A nonsterile tourniquet was placed high onto the arm. All bony prominences were well padded. Prophylactic antibiotics in the form of Cefazolin were administered. The right arm was then prepped with Chloraprep and draped in a standard fashion with stockinette and extremity drape. A timeout to confirm correct identity, side and site, procedure, allergies, anesthesia, and medical concerns was performed. The surgical site was marked in the volar wrist creases in line with the radial border of the fourth ray. This area was anesthetized with approximately 6cc of 1% Lidocaine. The limb was then exsanguinated with an Esmarch. The skin was incised with a 15 blade, approximately 1cm. The skin only was cut and the deeper tissue was dissected bluntly with a tenotomy scissor, avoiding passing nerve and venous structures. The fascia was penetrated and opened bluntly. A two-prong skin hook was placed under this proximal fascial edge. A series of hamate finders were used to identify and dilate the carpal tunnel. Synovial elevator was used to free synovial attachments to the underside of the transverse carpal ligament. My thumb was kept in the palm to diana the distal extent of the carpal tunnel and correctly position the hand. The Microaire endoscope was inserted without difficulty and without resistance. Excellent visualization showed horizontally running fibers of the transverse carpal ligament (TCL). The distal extent of the TCL was visualized and the end of the scope palpated with the thumb. The blade was elevated and withdrawn from distal to proximal. The TCL was split into two flaps. The endoscope was reinserted to confirm complete release and any remnant ligament was incised. The scope was withdrawn and the proximal aspect of the carpal tunnel was grossly inspected and appeared release with the median nerve visible. The antebrachial fascia at the level of the wrist was then freed from the overlying skin and then the underlying median nerve with blunt dissection. This was transected longitudinally for about 3cm proximal to the wrist incision. The wound was then irrigated with easy flow of irrigant distally and proximally. The incision was closed with a single 4-0 Nylon suture. The wound was dressed with Xeroform, Gauze, Kerlix and Michael. The tourniquet was deflated with the initial dressing and held with some pressure. Blood flow returned easily to all digits with capillary refill less than 2 seconds. The patient tolerated the procedure well and was returned to the Same Day Surgery area in a stable condition suffering no known complication.
[2020-06-04 10:32] VITALS: BP 113/52; PULSE 58; RESP 17; TEMP 36.3; O2SAT 99
== END 2020-06-04 10:52 | disposition home or self-care (01) ==
PROVIDERS: PCP Nurse Practitioner; Visit Provider Student in an Organized Health Care Education/Training Program
PROC: 01N54ZZ Release Median Nerve, Percutaneous Endoscopic Approach (ICD-10-PCS; CPT 29848; principal; 2020-06-04 10:00)
DX: G56.01 Carpal tunnel syndrome, right upper limb (principal)
CPT/HCPCS: 29848; J0690; J1885; J2001

== ENCOUNTER 2020-06-27 14:46 | Outpatient (REF) | payer MEDICARE, BC, SELFPAY ==
[2020-06-27 13:52] LABS: Hemoglobin A1C 5.7 % (<5.7)
[2020-06-27 14:00] LABS: Calculated LDL 106 mg/dL (<100); Cholesterol 172 mg/dL (<200); HDL Cholesterol 27 mg/dL (40-60); Triglyceride 195 mg/dL (<150)
== END 2020-06-27 15:06 ==
LOC: LBN 14:46
PROVIDERS: PCP Nurse Practitioner; Visit Provider Nurse Practitioner
DX: E11.9 Type 2 diabetes mellitus without complications (principal)
CPT/HCPCS: 80061; 83036

== ENCOUNTER → 2020-09-11 08:19 | Outpatient (BNVA) | payer MEDICARE, BC, SELFPAY | PROVIDERS: PCP Nurse Practitioner; Referring Provider Nurse Practitioner; Visit Provider Internal Medicine Cardiovascular Disease | DX: I49.9 Cardiac arrhythmia, unspecified (principal); Z86.79 Personal history of other diseases of the circulatory system; I10 Essential (primary) hypertension; E11.9 Type 2 diabetes mellitus without complications | CPT/HCPCS: 99214 ==

== ENCOUNTER 2021-01-17 09:16 | Outpatient (CLI) | payer MEDICARE, BC, SELFPAY ==
--- NOTE | 2021-01-17 08:45 | DI.RAD_ITS ---
EXAM: XR PELVIS AP CLINICAL HISTORY: pain. TECHNIQUE: 2D digital imaging was performed. COMPARISON: No exams were available for comparison FINDINGS: The hip joints are well maintained. Dystrophic calcifications are seen adjacent to the left greater trochanter. No acute fracture or dislocation, lytic or sclerotic lesion is seen. The bones are norm ally mineralized. The visualized portions of the sacroiliac joints and symphysis pubis are unremarka ble. Vascular calcifications are seen in the soft tissues. IMPRESSION: No acute abnormality. DATA REPOSITORY: RADIATION DOSE DELIVERED:
--- NOTE | 2021-01-17 08:45 | DI.RAD_ITS ---
EXAM: XR KNEE RT 4V AP,LAT,DAVID,PAT CLINICAL HISTORY: pain. TECHNIQUE: 2D digital imaging was performed. COMPARISON: No exams were available for comparison FINDINGS: Periarticular spurring is seen in the lateral femoral tibial joint and the patellofemoral joint. The re is narrowing of the patellofemoral joint. No acute fracture or dislocation. The bones are normal ly mineralized. There is a small joint effusion. Vascular calcifications are seen in the soft tissu es. IMPRESSION: Degenerative changes of the right knee. DATA REPOSITORY: RADIATION DOSE DELIVERED:
== END 2021-01-17 09:17 | disposition home or self-care (01) ==
LOC: DIORS 09:16
PROVIDERS: PCP Nurse Practitioner; Referring Provider Nurse Practitioner; Visit Provider Student in an Organized Health Care Education/Training Program
DX: M25.551 Pain in right hip (principal); M54.16 Radiculopathy, lumbar region
CPT/HCPCS: 99213; 72170; 73564

== ENCOUNTER 2021-02-06 01:03 | Outpatient (CLI) | payer MEDICARE, BC, SELFPAY ==
--- NOTE | 2021-02-06 07:30 | DI.RAD_ITS ---
Exam(s) RF JOINT INJECTION FLUORO GUID EXAM: RF JOINT INJECTION FLUORO GUID CLINICAL HISTORY: R HIP INJ UNDER FLUORO,RT HIP PAIN,M25.551 TECHNIQUE: Fluoroscopy provided. Radiologist not present. CONTRAST MATERIAL: None COMPARISON: No exams were available for comparison FINDINGS: Fluoroscopy was provided during right hip therapeutic injection Submitted image(s) reveal intra-articular needle tip at the level of the femoral head-neck junction; lateral approach. Intra-articular contrast noted Please refer to the procedure report for complete details. Cumulative Dose: bowen Galindo=0.553 mGy IMPRESSION: RADIATION DOSE DELIVERED:
[2021-02-06] MEDS: Omnipaque 300 MG/ML 10 ML BTL IJ (14:42)
[2021-02-06] MEDS: Bupivacaine 0.5% Pres-Free 10 ML VIAL IJ (14:42)
[2021-02-06] MEDS: methylPREDNISolone ACETATE 80 MG/ML VIAL IM (14:43)
--- NOTE | 2021-02-06 15:56 | W.PROCNOTE ---
Date of service: 02/06/21 Time of Service: 13:56 Procedure Note Date of procedure: 02/06/21 Procedure: Right Hip Injection with Fluoroscopic Guidance Surgeon/Proceduralist/Physician: Demond Mcbride Procedure Diagnosis: Right Hip Pain Procedure Indications: Ney has had persistent pain of the RIGHT hip and thigh and knee. Noninvasive measures have been tried. To serve as both diagnostic and therapeutic, an injection under fluoroscopy was recommended. I had discussed the risks of the procedure and the patient elected to proceed. Procedure Description: Ney was greeted in the flouroscopy room. The correct side was identified and the consent was reviewed with the patient and signed. The patient was then placed in the supine position on the fluoroscopy table. The RIGHT hip was then prepped with Chloraprep. The anterolateral injection starting point was identiifed by bony landmarks and fluoroscopy. The skin and soft tissue in the tract of the injection was anesthetized with 1% Lidocaine. A spinal needle was then inserted deep into the hip joint at the level of the lateral femoral neck under fluoroscopic guidance. A small amount of Omnipaque solution was injected to confirm intraarticular placement. Once confirmed, the hip was injected with 6cc of 0.5% Bupivicaine and 80mg of Depo-Medrol. A bandaid was placed on the injection site. The patient tolerated the procedure well and noted improvement mild improvement of the hip region pre-injection pain but no major changes with the pain in the thigh and into the knee.
== END 2021-02-06 01:23 ==
PROVIDERS: PCP Nurse Practitioner; Visit Provider Student in an Organized Health Care Education/Training Program
DX: M16.11 Unilateral primary osteoarthritis, right hip (principal); M25.551 Pain in right hip; M25.561 Pain in right knee; M79.604 Pain in right leg
CPT/HCPCS: 20610; 77002; J1040

== ENCOUNTER 2021-02-19 03:06 | Outpatient (CLI) | payer MEDICARE, BC, SELFPAY ==
[2021-02-19 08:37] LABS: Potassium 4.6 mmol/L (3.5-5.1)
== END 2021-02-19 03:07 | disposition home or self-care (01) ==
LOC: LBO 03:06
PROVIDERS: PCP Nurse Practitioner; Visit Provider Nurse Practitioner
DX: I10 Essential (primary) hypertension (principal)
CPT/HCPCS: 36415; 82565; 84132

== ENCOUNTER → 2021-02-26 09:26 | Outpatient (BNVA) | payer MEDICARE, BC, SELFPAY | PROVIDERS: PCP Nurse Practitioner; Referring Provider Nurse Practitioner; Visit Provider Physician Assistant | DX: I47.1 Supraventricular tachycardia (principal); Z45.09 Encounter for adjustment and management of other cardiac device | CPT/HCPCS: 93285; 99211 ==

== ENCOUNTER 2021-03-13 00:46 | Outpatient (CLI) | payer MEDICARE, BC, SELFPAY ==
--- NOTE | 2021-03-13 07:45 | DI.US_ITS ---
Exam(s) US ABDOMEN RENAL EXAM: US ABDOMEN RENAL CLINICAL HISTORY: 2 cm left renal lesion on MRI, f/u gall stones,n28.9 TECHNIQUE: Ultrasound abdomen performed using standard protocol. COMPARISON: MR MRI LUMBAR SPINE WO CONTRAST from 02/11/2021 FINDINGS: ABDOMINAL AORTA AND IVC: Visualized portions normal caliber. PANCREAS: Normal where visualized. LIVER: Normal. Hepatopedal flow in the Portal Vein. The liver measures 18.7 cm in length. GALLBLADDER: Cholelithiasis. There is a 1.2 cm shadowing echogenic stone which may lie within the cy stic duct. No evidence of wall thickening. No pericholecystic fluid identified. BILIARY SYSTEM: Common bile duct measures < 7 mm. No intrahepatic biliary ductal dilation. ROD'S SIGN: Negative. SPLEEN: Not enlarged. ASCITES: None seen. Renal size in cm: Right: 11.5. Left: 11.9. Echogenicity: Normal. Hydronephrosis: No. Cyst or mass: There is a 1.7 x 1.4 x 1.6 cm isoechoic avascular exophytic nodule in the superior late ral aspect of the left lobe. It appears to correspond to the finding on the MRI. It does not meet t he criteria for simple cyst. Nephrolithiasis: No. Other findings: None. Bladder:The urinary bladder was not adequately prepped for this examination limiting evaluation. Ureteral jets: Right: Not visualized on this examination. Left: Not visualized on this examination. Prevoid vol:73 cc Prostate: 73 cc. Prostatic calcifications were noted. Renal color flow: Symmetric and within normal limits. IMPRESSION: 1. 1.7 x 1.4 x 1.6 cm isoechoic exophytic nodule at the superior lateral aspect of the left kidney. This corresponds to the finding on the MRI of the lumbar spine examination. It does not meet the cri teria for simple cyst. Further evaluation with pre and post contrast CT or MRI is recommended. 2. Cholelithiasis. There is a stone which lead may lie within the cystic duct. No biliary ductal di latation. Further evaluation with a CT scan should be considered. 3. Hepatomegaly. 4. Enlarged prostate gland. 5. Incomplete evaluation of the urinary bladder due to inadequate prep. Incidental findings DATA REPOSITORY:
== END 2021-03-13 01:06 ==
PROVIDERS: PCP Nurse Practitioner; Visit Provider Nurse Practitioner
DX: N28.89 Other specified disorders of kidney and ureter (principal); K80.20 Calculus of gallbladder without cholecystitis without obstruction; R16.0 Hepatomegaly, not elsewhere classified; N40.0 Benign prostatic hyperplasia without lower urinary tract symptoms
CPT/HCPCS: 76770; 76700

== ENCOUNTER 2021-04-08 01:26 | Outpatient (CLI) | payer MEDICARE, BC, SELFPAY ==
--- NOTE | 2021-04-08 08:15 | DI.CT_ITS ---
Exam(s) CT ABDOMEN PELVIS WO/W EXAM: CT ABDOMEN PELVIS WO/W CLINICAL HISTORY: renal lesion, N28.9 TECHNIQUE: CT examination of the abdomen pelvis was performed utilizing CT urogram protocol with non contrast CT followed by venous phase 7 minutes delayed phase imaging with intravenous infusion of 100 cc of Omnipaque 350. COMPARISON: No exams were available for comparison FINDINGS: Images obtained through the lung bases are unremarkable. Note is made of coronary artery calcificati on. Noncontrast CT shows a small nonobstructing right renal calculus, about 3 millimeters in diameter, an d a 3 millimeter in diameter nonobstructing left renal calculus. Images obtained through the lung bases are unremarkable. The liver is unremarkable in appearance. The spleen is unremarkable in appearance. The pancreas is unremarkable in appearance. Note is made of cholelithiasis. There is biliary dilatation Abdominal aorta and major visceral branches appear intact. No evidence of abdominal wall hernia. No evidence of abdominal or pelvic adenopathy. No focal bowel pathology. Right kidney is unremarkable appearance except for the aforementioned nonobstructing stone. Left kid erasmo contains a nonobstructing stone as well. There is 25 x 16 millimeter in diameter left renal midp ole mass with somewhat poorly defined borders, this measures about 24 Hounsfield units on noncontrast CT with enhancement to approximately 35 Hounsfield units venous phase and delayed imaging. Findings are suspicious for small renal neoplasm. A small to intermediate low-attenuation lesion is also seen medial aspect of the left kidney, measuri ng about 7 millimeters in diameter, too small to characterize with certainty.. IMPRESSION: Bilateral nonobstructing renal calculi. left midpole renal mass, measuring about 25 millimeters in diameter, suspicious for small renal neop lasm. An additional 7 millimeter indeterminate left renal cortical mass is seen. A 5 millimeter in diameter right renal indeterminate cortical mass is also noted. Recent ultrasound examination did no t show renal cysts. RADIATION DOSE DELIVERED: 2,384.91mGy.cm Total DLP 2,384.91mGy.cm DLP 2,384.91mGy.cm Total DLP RADIATION OPTIMIZATION: All CT scans at this facility use at least one of these dose optimization te chniques: automated exposure control; mA and/or kV adjustment per patient size (includes targeted exa ms where dose is matched to clinical indication); or iterative reconstruction.
[2021-04-08] MEDS: Omnipaque 350 MG/ML 100 ML BTL IJ (15:01)
[2021-04-08] MEDS: Normal Saline Flush 10 ML SYR IVP (15:05)
[2021-04-08] MEDS: Normal Saline - Diluent 50 ML VIAL IV ×2 (15:05→15:06)
== END 2021-04-08 01:46 ==
PROVIDERS: PCP Nurse Practitioner; Visit Provider Nurse Practitioner
DX: N20.0 Calculus of kidney
CPT/HCPCS: 74178; J3490

== ENCOUNTER 2021-05-01 15:12 | Outpatient (REF) | payer MEDICARE, BC, SELFPAY ==
[2021-05-01 20:16] LABS: HCT 41.4 % (40.0-50.0); HGB 14.4 g/dL (13.5-17.5); MCH 30.7 pg (27.0-33.0); MCHC 34.8 % (32.0-36.0); MCV 88.3 fL (80-95); MPV 9.6 fL (8.0-11.0); Platelet Count 191 10^3/uL (130-400); RBC 4.69 10^6/uL (4.36-5.78); RDW 13.4 % (11.8-14.1); RDW-SD 43.5 fL; WBC 8.95 10^3/uL (4.4-10.8)
[2021-05-01 20:27] LABS: Anion Gap 13.5 mmol/L (3-11); BUN 25 mg/dL (7-18); CO2 25.5 mmol/L (21.0-32.0); CREATININE 0.9 mg/dL (0.70-1.30); Calcium 9.2 mg/dL (8.5-10.1); Chloride 104 mmol/L (98-107); Glucose 84 mg/dL (74-106); Potassium 3.8 mmol/L (3.5-5.1); Sodium 143 mmol/L (136-145)
[2021-05-01 20:31] LABS: Hemoglobin A1C 5.3 % (<5.7)
== END 2021-05-01 15:13 | disposition home or self-care (01) ==
LOC: LBN 15:12
PROVIDERS: PCP Nurse Practitioner; Visit Provider Nurse Practitioner
DX: Z01.818 Encounter for other preprocedural examination; E11.42 Type 2 diabetes mellitus with diabetic polyneuropathy
CPT/HCPCS: 80048; 85027; 83036

== ENCOUNTER → 2021-09-24 08:22 | Outpatient (BNVA) | payer MEDICARE, BC, SELFPAY | PROVIDERS: PCP Nurse Practitioner; Referring Provider Nurse Practitioner; Visit Provider Physician Assistant | DX: I47.1 Supraventricular tachycardia (principal); Z45.09 Encounter for adjustment and management of other cardiac device | CPT/HCPCS: 93285; 99211 ==

== ENCOUNTER → 2022-01-30 00:14 | Outpatient (CLI) | payer MEDICARE, BC, SELFPAY ==
[2022-01-30 10:18] LABS: Abs Immature Grans 0.07 10^3/uL (0.0-0.06); Absolute Basophil Count 0.05 10^3/uL (0.0-0.2); Absolute Eosinophil Count 0.18 10^3/uL (0.0-0.7); Absolute Lymphocyte Count 1.35 10^3/uL (1.2-3.4); Absolute Monocyte Count 0.43 10^3/uL (0.1-0.8); Absolute Neutrophil Count 5.89 10^3/uL (1.2-6.7); Basophils % 0.6; Eosinophils % 2.3; HCT 43.1 % (40.0-50.0); HGB 14.4 g/dL (13.5-17.5); Immature Grans % 0.9; Lymphocytes % 16.9; MCH 30.3 pg (27.0-33.0); MCHC 33.4 % (32.0-36.0); MCV 90.7 fL (80-95); MPV 8.4 fL (8.0-11.0); Monocytes % 5.4; Neutrophils % 73.9; Platelet Count 201 10^3/uL (130-400); RBC 4.75 10^6/uL (4.36-5.78); RDW 13.6 % (11.8-14.1); RDW-SD 45.4 fL; WBC 7.97 10^3/uL (4.4-10.8)
[2022-01-30 10:26] LABS: Anion Gap 5.3 mmol/L (3-11); BUN 17 mg/dL (7-18); CO2 31.7 mmol/L (21.0-32.0); CREATININE 1.1 mg/dL (0.70-1.30); Calcium 9.3 mg/dL (8.5-10.1); Chloride 102 mmol/L (98-107); Glucose 108 mg/dL (74-106); Potassium 4.3 mmol/L (3.5-5.1); Sodium 139 mmol/L (136-145)
[2022-01-30] MEDS: Omnipaque 350 MG/ML 100 ML BTL IJ (11:17)
--- NOTE | 2022-01-30 11:18 | DI.CT_ITS ---
Exam(s) CT ABDOMEN WO/W EXAM: CT ABDOMEN WO/W CLINICAL HISTORY: F/U RENAL CELL CA, C64.9. TECHNIQUE: Imaging Protocol: Axial computed tomography images with coronal and sagittal reformatted images were created and reviewed. Pre contrast, venous phase and delayed images. CONTRAST MATERIAL: Intravenous: Omnipaque 350 Contrast volume:1002 ml Contrast route:IV - Oral: no COMPARISON: US ABDOMEN ULTRASOUND (P) from 03/11/2011 MR MRI LUMBAR SPINE WO CONTRAST from 02/11/2021 US US ABDOMEN RENAL from 03/13/[address] ABDOMEN PELVIS WO/W from 04/08/2021 FINDINGS: ABDOMEN: Lung Bases: Normal where visualized. Liver: Normal density. No measurable mass. Gallbladder and biliary tract: Cholelithiasis. No biliary dilation. Pancreas: Normal density, no abnormal calcifications or inflammatory process. Spleen: Prominent size,, 14 cm in length, stable. Kidneys: Normal size, contour and axis. No radiodense stones or obstructive uropathy. Mass at the sup erior pole of the left kidney is measured on the current exam at 2.9 x 2.5 cm . There are few other tiny hypodensities, too small to characterize. Adrenal glands: No masses seen. Abdominal Aorta: Abdominal portion non-dilated. Moderate atherosclerotic changes. Lymph nodes: Within normal limits. Bowel: Suture material seen at transverse colon. Right upper quadrant clips in the adjacent fat. Bones: Old low left lower rib fractures. Degenerative changes in the spine. IMPRESSION: Stable size mass upper pole left kidney. No new findings. RADIATION DOSE DELIVERED: 1,546.44mGy.cm Total DLP DATA REPOSITORY: All CT scans at this facility are submitted to the National Radiology Data Registry (NRDR) Dose Index Registry (DIR) with the [employer] ([employer]). RADIATION OPTIMIZATION: All CT scans at this facility use at least one of these dose optimization te chniques: automated exposure control; mA and/or kV adjustment per patient size (includes targeted exa ms where dose is matched to clinical indication); or iterative reconstruction.
== END ==
PROVIDERS: PCP Nurse Practitioner; Visit Provider Surgery
DX: N28.89 Other specified disorders of kidney and ureter (principal); C64.2 Malignant neoplasm of left kidney, except renal pelvis; K80.20 Calculus of gallbladder without cholecystitis without obstruction
CPT/HCPCS: 80048; 74170; 85025; J3490

== ENCOUNTER 2022-02-03 20:30 | Outpatient (REF) | payer MEDICARE, BC, SELFPAY ==
[2022-02-03 21:01] LABS: Bilirubin Negative (Negative); Blood Large (Negative); Clarity Cloudy (Clear); Glucose Negative (Negative); Ketones Negative (Negative); Leukocyte Esterase Negative (Negative); Nitrite Negative (Negative); Specific Gravity >= 1.030 (1.005-1.025); Urobilinogen 0.2 EU/dL (Up TO 0.2)
[2022-02-03 21:03] LABS: C & S Indicated? Yes; RBC >50 HPF (0-2)
== END 2022-02-03 20:31 | disposition home or self-care (01) ==
LOC: LBN 20:30
PROVIDERS: PCP Nurse Practitioner; Visit Provider Nurse Practitioner
DX: R31.9 Hematuria, unspecified (principal); N28.89 Other specified disorders of kidney and ureter
CPT/HCPCS: 81003; 81015; 87086

== ENCOUNTER → 2022-03-25 08:25 | Outpatient (BNVA) | payer MEDICARE, BC, SELFPAY | PROVIDERS: PCP Nurse Practitioner; Referring Provider Nurse Practitioner; Visit Provider Physician Assistant | DX: Z95.818 Presence of other cardiac implants and grafts (principal); I47.1 Supraventricular tachycardia | CPT/HCPCS: 93291 ==

== ENCOUNTER → 2022-04-22 00:36 | Outpatient (CLI) | payer MEDICARE, BC, SELFPAY ==
--- NOTE | 2022-04-22 | DI.RAD_ITS ---
Exam(s) XR CHEST 2V PA LATERAL EXAM: XR CHEST 2V PA LATERAL CLINICAL HISTORY: RENAL CELL CA, PREOP, C64.9. TECHNIQUE: 2D digital imaging was performed. COMPARISON: No exams were available for comparison FINDINGS: 2 views: Left-sided cardiac loop detector noted Heart size is normal. The mediastinum is not widened. Lungs are clear. No infiltrates nor pleural effusions. IMPRESSION: No acute pulmonary findings. DATA REPOSITORY: RADIATION DOSE DELIVERED:
== END ==
PROVIDERS: PCP Nurse Practitioner; Visit Provider Surgery
DX: Z01.818 Encounter for other preprocedural examination (principal); C64.9 Malignant neoplasm of unspecified kidney, except renal pelvis
CPT/HCPCS: 71046

== ENCOUNTER 2022-04-28 02:14 | Outpatient (CLI) | payer MEDICARE, BC, SELFPAY ==
[2022-04-28 10:46] LABS: Anion Gap 5.8 mmol/L (3-11); BUN 24 mg/dL (7-18); CO2 31.2 mmol/L (21.0-32.0); Calcium 8.7 mg/dL (8.5-10.1); Chloride 105 mmol/L (98-107); Glucose 102 mg/dL (74-106); Potassium 4.4 mmol/L (3.5-5.1); Sodium 142 mmol/L (136-145)
== END 2022-04-28 02:15 | disposition home or self-care (01) ==
PROVIDERS: PCP Nurse Practitioner; Visit Provider Nurse Practitioner
DX: N28.89 Other specified disorders of kidney and ureter (principal); R31.9 Hematuria, unspecified
CPT/HCPCS: 36415; 80048

== ENCOUNTER 2022-04-28 14:51 | Outpatient (REF) | payer MEDICARE, BC, SELFPAY | END 2022-04-28 14:52 | disposition home or self-care (01) | LOC: LBN 14:51 | PROVIDERS: PCP Nurse Practitioner; Visit Provider Nurse Practitioner ==

== ENCOUNTER 2022-05-06 11:03 | Outpatient (REF) | payer MEDICARE, BC, SELFPAY ==
[2022-05-06 09:50] LABS: Bilirubin Negative (Negative); Blood Negative (Negative); Clarity Clear (Clear); Glucose Negative (Negative); Ketones Negative (Negative); Leukocyte Esterase Negative (Negative); Nitrite Negative (Negative); Specific Gravity >= 1.030 (1.005-1.025); Urobilinogen 0.2 EU/dL (Up TO 0.2); pH 5.5 (5-8)
== END 2022-05-06 11:04 | disposition home or self-care (01) ==
LOC: LBO 11:03
PROVIDERS: PCP Nurse Practitioner; Visit Provider Surgery
DX: C64.9 Malignant neoplasm of unspecified kidney, except renal pelvis (principal)
CPT/HCPCS: 81003

== ENCOUNTER 2022-05-13 09:27 | Outpatient (CLI) | payer MEDICARE, BC, SELFPAY ==
[2022-05-13 11:42] LABS: Abs Immature Grans 0.08 10^3/uL (0.0-0.06); Absolute Basophil Count 0.03 10^3/uL (0.0-0.2); Absolute Lymphocyte Count 0.79 10^3/uL (1.2-3.4); Absolute Monocyte Count 0.77 10^3/uL (0.1-0.8); Absolute Neutrophil Count 7.68 10^3/uL (1.2-6.7); Basophils % 0.3; Eosinophils % 2.1; HGB 9.1 g/dL (13.5-17.5); Immature Grans % 0.8; Lymphocytes % 8.3; MCH 31.1 pg (27.0-33.0); MCV 89 fL (80-95); Monocytes % 8.1; Neutrophils % 80.4; Platelet Count 208 10^3/uL (130-400); RBC 2.93 10^6/uL (4.36-5.78); RDW 13.3 % (11.8-14.1); RDW-SD 43.4 fL; WBC 9.55 10^3/uL (4.4-10.8)
== END 2022-05-13 09:28 | disposition home or self-care (01) ==
LOC: LBO 09:32
PROVIDERS: PCP Nurse Practitioner; Visit Provider Student in an Organized Health Care Education/Training Program
DX: D64.9 Anemia, unspecified (principal)
CPT/HCPCS: 36415; 85025

== ENCOUNTER 2022-05-22 12:39 | Outpatient (CLI) | payer MEDICARE, BC, SELFPAY ==
[2022-05-22 12:53] LABS: Abs Immature Grans 0.41 10^3/uL (0.0-0.06); Absolute Lymphocyte Count 1.48 10^3/uL (1.2-3.4); Absolute Monocyte Count 0.63 10^3/uL (0.1-0.8); Absolute Neutrophil Count 9.42 10^3/uL (1.2-6.7); Basophils % 0.7; HCT 30.1 % (40.0-50.0); HGB 10.3 g/dL (13.5-17.5); Immature Grans % 3.3; Lymphocytes % 12.1; MCH 30.6 pg (27.0-33.0); MCHC 34.2 % (32.0-36.0); MCV 89 fL (80-95); MPV 8.5 fL (8.0-11.0); Monocytes % 5.1; Neutrophils % 76.8; Platelet Count 356 10^3/uL (130-400); RBC 3.37 10^6/uL (4.36-5.78); RDW 13.8 % (11.8-14.1); RDW-SD 44.7 fL; WBC 12.26 10^3/uL (4.4-10.8)
[2022-05-22 12:54] LABS: Absolute Basophil Count 0.09 10^3/uL (0.0-0.2); Absolute Eosinophil Count 0.25 10^3/uL (0.0-0.7)
== END 2022-05-22 12:40 | disposition home or self-care (01) ==
LOC: LBO 12:39
PROVIDERS: PCP Nurse Practitioner; Visit Provider Surgery
DX: C64.2 Malignant neoplasm of left kidney, except renal pelvis (principal)
CPT/HCPCS: 36415; 85025

== ENCOUNTER → 2022-06-12 09:36 | Outpatient (BNVA) | payer MEDICARE, BC, SELFPAY | PROVIDERS: PCP Nurse Practitioner; Referring Provider Nurse Practitioner; Visit Provider Surgery | DX: Z86.010 Personal history of colon polyps (principal); Z85.038 Personal history of other malignant neoplasm of large intestine; Z12.11 Encounter for screening for malignant neoplasm of colon ==

== ENCOUNTER 2022-06-12 10:24 | Outpatient (REF) | payer MEDICARE, BC, SELFPAY ==
[2022-06-12 11:03] LABS: Bilirubin Negative (Negative); Blood Small (Negative); Clarity Clear (Clear); Glucose Negative (Negative); Ketones Negative (Negative); Leukocyte Esterase Negative (Negative); Nitrite Negative (Negative); Urobilinogen 0.2 EU/dL (Up TO 0.2)
[2022-06-12 11:11] LABS: Bacteria Negative HPF (Negative); C & S Indicated? No; Casts Negative LPF (Negative); Crystals Negative HPF (Negative); Epithelial Cells Rare HPF (Negative); Mucus Negative (Negative); WBC 0-2 HPF (0-5)
== END 2022-06-12 10:25 | disposition home or self-care (01) ==
LOC: LBN 10:24
PROVIDERS: PCP Nurse Practitioner; Visit Provider Surgery
DX: R31.9 Hematuria, unspecified (principal); Z98.890 Other specified postprocedural states
CPT/HCPCS: 81003; 81015

== ENCOUNTER 2022-07-01 08:26 | Day surgery (SDC) | payer MEDICARE, BC, SELFPAY ==
--- NOTE | 2022-07-01 06:45 | W.COLOREPORT ---
Colonoscopy Report Date of procedure: 07/01/22 Pre-op diagnosis general: Colon Cancer Screening, Hx of colon cancer Post-op diagnosis procedure note: other (polyps) Procedure: Colonoscopy with polypectomy Surgeon: Aviva Anton Anesthesia Type: General:No Airway Estimated blood loss (mL): 3 Pathology: other (transverse polyp and sigmoid polyp) Complications: None Disposition: same day Indications: The patient? is a pleasant 66 -year-old male who is here to discuss another screening colonoscopy. ? He denies any changes in bowel habits, melena, hematochezia, unintentional weight loss or family history of colon cancer. He had a colonoscopy in 2017 and was found to have a sessile serrated adenoma.? He also has a hx of colon cancer diagnosed in 2009.? The procedure and risks were discussed.? The prep was reviewed in detail.? Risks, benefits and complications have been reviewed. Complications include but are not limited to bleeding, pain, perforation, missed small lesion/polyp, sore throat, aspiration and adverse reaction to the medications. Questions were entertained and answered to their satisfaction and they wished to proceed. No guarantees were given or implied. Prep: Miralax/Dulcolax Procedure Start Time: 10:18 Procedure End Time: 10:37 Retraction Time: 9 minutes Findings: 2 polyps Procedure Description: After informed consent was obtained the patient was taken to the procedure room and placed in a left decubitous position. Monitors were applied and a time out was done. The patients name, date of , procedure, allergies to medications and metal in their body was reviewed. The patient was then sedated. Once sedated and comfortable a rectal exam was done. External exam was normal. Internal exam revealed a normal sphincter tone and no palpable masses. The prostate felt smooth. The scope was then introduced and retro-flexed. No internal hemorrhoids, polyps or masses were identified on retro-flexion. The scope was then advanced to the anastamosis without difficulty. The ileocecal vlave and appendiceal orifice were identified. The prep was good. The scope was then slowly retracted over 9 minutes back into the rectum. Polyps were removed with a cold snare in the Transverse colon and with cold forceps in the sigmoid colon. There was no diverticulosis noted. The scope was removed and the patient was woken up and taken back to Same day surgery in stable condition. The patient tolerated the procedure well and there were no immediate complications.
--- NOTE | 2022-07-01 06:46 | W.PM.DSUDISC ---
Discharge Plan Disposition Patient Disposition: HOME Condition: Good Discharge Details Reason For Visit: colonoscopy Attending Provider: Aviva Anton Primary Care Provider: Arline Murphy Home Meds and New Rx's Prescriptions: Continued (DME) pen needle, diabetic [1st Tier Unifine Pentips] 32 gauge x 5/32 needle See Rx Instructions .ROUTE .MEDSUPPLY Qty: 100 3RF Rx Instructions: As directed lamotrigine 100 mg tablet 100 mg PO BID Qty: 180 4RF quetiapine 25 mg tablet 25 mg PO QHS Qty: 90 4RF Rx Instructions: 1-2 tabs at HS insulin glargine [Basaglar KwikPen U-100 Insulin] 100 unit/mL (3 mL) insulin pen 25 unit SC QPM Qty: 15 12RF (DME) blood-glucose meter [FreeStyle Lite Meter] 1 EACH kit 1 kit Miscellaneous DIRECTED Rx Instructions: DX:250. (DME) FreeStyle Lite Strips 1 EACH strip 1 strip Miscellaneous DAILY Qty: 100 Rx Instructions: DX:250. hydrochlorothiazide 12.5 mg capsule 12.5 mg PO DAILY Qty: 90 3RF lisinopril 20 mg tablet 20 mg PO DAILY Qty: 90 4RF allopurinol 300 mg tablet 300 mg PO DAILY Qty: 90 3RF metformin 1,000 mg tablet 1,000 mg PO BID Qty: 180 4RF omeprazole 40 mg capsule,delayed release(DR/EC) 40 mg PO HS Qty: 90 4RF verapamil 120 mg tablet 120 mg PO BID Qty: 180 3RF sertraline [Zoloft] 100 mg tablet 200 mg PO DAILY Qty: 180 3RF Discontinued bisacodyl [Dulcolax (bisacodyl)] 5 mg tablet,delayed release (DR/EC) 5 mg PO ONCE Qty: 4 0RF polyethylene glycol 3350 17 gram/dose powder 17 g PO ONCE Qty: 238 0RF Discharge Instructions Instructions: Colorectal Polyps (DC) Additional Instructions: Findings: 2 polyps Please call if you develop: fevers >101.5 Nausea or Vomiting Abdominal pain that is not transient Rectal bleeding that is more then a tbsp A hard abdomen and inability to pass gas DAY SURGERY UNIT POST ENDOSCOPY INSTRUCTIONS Instructions for everyone who is given Anesthesia: For your safety, please do the following for the next 24 Hours: a. Do not drive or operate dangerous equipment b. Do not drink alcohol beverages or use any recreational drugs for the first 24 hours or while taking pain medications. The medications in your body may have a reaction that can be dangerous. c. Do not make any important decisions or sign any important papers 1. Generally there are no restrictions on your activity after a day or so has gone by, but you may feel a bit fatigued for a few days. 2. After you arrive home you may have a light meal and return to a normal diet as you can tolerate it without feeling sick to your stomach. 3. After surgery, you may feel pain or discomfort. This should be only transient, but if it persists please contact your doctor. 4. If there are any questions regarding the findings of your procedure, please feel free to contact your doctor. 6. If you are unable to contact your doctor with a problem, contact the hospital at [phone]. 7. Continue all your regular medications unless directed otherwise. I understand the above instructions and have no questions. Signature of Patient or Responsible Adult Escort Date/Time Name of Responsible Adult Escort Signature of Nurse Date/Time Activity:: Activity as Tolerated Diet:: As Tolerated Discharge Orders Discharge Orders: Discharge Order (Routine); Ordered 07/01/22 Ordered By: Aviva Anton
--- NOTE | 2022-07-01 07:07 | W.ANESPRE ---
General Info Date of Service Date Performed: 07/01/22 Height: 5 ft 10 in Weight: 90.718 kg Body Mass Index (BMI): 28.7 Surgical Procedure: Operation Date: 07/01/22 10:20 Proposed Procedure Side Surgeon ken Anton MD Meds Allergies and Home Medications Allergies Allergy/AdvReac Type Severity Reaction Status Date / Time No Known Allergies Allergy Verified 07/01/22 08:55 Home Medication Medication Instructions Recorded blood-glucose meter (FreeStyle 02/16/13 Lite Meter kit) blood sugar diagnostic (FreeStyle #100 strips 07/24/13 Lite Strips) pen needle, diabetic 32 gauge x #100 ea 04/25/20 (1st Tier Unifine Pentips) insulin glargine 100 unit/mL (3 25 unit (0.25 mL) subcut QPM #15 mL 07/17/21 mL) subcutaneous pen (Netologyaglar KwikPen U-100 Insulin) lamotrigine 100 mg tablet 100 mg PO BID #180 tabs 10/02/21 quetiapine 25 mg tablet 25 mg PO QHS #90 tabs 10/02/21 allopurinol 300 mg tablet 300 mg PO DAILY #90 tabs 12/03/21 hydrochlorothiazide 12.5 mg capsule 12.5 mg PO DAILY #90 caps 12/03/21 lisinopril 20 mg tablet 20 mg PO DAILY #90 tab-caps 12/03/21 metformin 1,000 mg tablet 1,000 mg PO BID #180 tab-caps 12/03/21 omeprazole 40 mg capsule,delayed 40 mg PO HS #90 caps 12/03/21 release sertraline 100 mg tablet (Zoloft) 200 mg PO DAILY #180 tabs 03/02/22 verapamil 120 mg tablet 120 mg PO BID #180 tabs 03/02/22 bisacodyl 5 mg tablet,delayed 5 mg PO ONCE #4 tabs 06/12/22 release (Dulcolax (bisacodyl)) polyethylene glycol 3350 17 17 g PO ONCE #238 grams 06/12/22 gram/dose oral powder Current Visit Medications: Current Medications Generic Name Dose Route Start Last Admin Trade Name Freq PRN Reason Stop Dose Admin Hyoscyamine Sulfate 0.125 mg 07/01/22 06:47 Hyoscyamine 0.125 Mg Sl/Oral/Chew SL DIRECTED PRN Ringer's Solution 1,000 mls @ 80 mls/hr 07/01/22 06:00 IV 07/01/22 23:59 INFUSION FORMERLY [facility]–1983 IV Miscellaneous Supplies 1 each 07/01/22 06:00 Iv Access IV 07/01/22 23:59 DIRECTED MAYELA Ondansetron HCl 4 mg 07/01/22 06:47 Ondansetron 4 Mg/2 Ml Vial IVP Q4H PRN PRN Nausea / Vomiting Sodium Chloride 0 ml 07/01/22 06:00 Normal Saline Flush 10 Ml Syr IV 07/01/22 23:59 PRN PRN Sodium Chloride 0 ml 07/01/22 06:00 Normal Saline 10 Ml Vial IJ 07/01/22 23:59 DIRECTED PRN Sterile Water 0 ml 07/01/22 06:00 Water,Injection,Sterile 10 Ml Vial IJ 07/01/22 23:59 DIRECTED PRN PFSH Active Problems Active Problems: Problem Status Onset Code Anxiety 02/16/13 F41.9 Diabetic polyneuropathy associated with type 2 diabetes mellitus 12/01/17 E11.42 Gastroesophageal reflux disease with esophagitis 02/16/13 K21.0 Gout 05/31/13 M10.9 Hypertension I10 Primary malignant neoplasm of colon 11/10/09 C18.9 Sleep disorder 08/08/14 G47.9 Spinal stenosis M48.00 Ulcerative colitis 02/16/13 K51.90 Balance disorder R26.89 Left ankle pain M25.572 Irregular heart beat I49.9 Hip pain, right M25.551 Lumbar radiculopathy M54.16 Renal mass N28.89 Hematuria R31.9 Medical History Medical History Anxiety Back pain of lumbar region with sciatica (06/08/16) Balance disorder Pt. walks with a cane, he broke his ankle and never healed correctly, and he states he has some vertigo Cholelithiasis identified during ultrasound, non- symptomatic De Quervain's tenosynovitis, right (10/15/17) resolved- surgery 06/2020 Delayed surgical wound healing (04/22/18) Encounter for loop recorder check [employer] LINQ LNQ11 [id number] 09/19/2020 Fracture of left humerus (04/11/14) GERD with esophagitis H/O supraventricular tachycardia History of atrial fibrillation pt. states he had a-fib and an ablation 2013 History of tobacco use HTN (hypertension) Hyperlipidemia (02/16/13) Implantable loop recorder present Nonunion of subtalar arthrodesis Original fusion 02/23/2018 Primary malignant neoplasm of colon 2009 right hemicolectomy Sciatica of left side (12/01/17) Sessile colonic polyp (03/15/17) Status post placement of implantable loop recorder [employer] LINQ LNQ11 [id number] 09/17/2020 Supraventricular tachycardia (02/16/13) radioabation 09/2014 Pt. states he wears a heart monitor called a PVB (PVC). SVT (supraventricular tachycardia) 2013 radioablation UC (ulcerative colitis) 2009 - UC w/ large cecal dysplastic lesion Surgical History Surgical History Carpal tunnel syndrome of right wrist Status post ECTR DOS: 06/04/2020 Colonoscopy - MAC (03/15/17) EGD - MAC (03/15/17) Hemicolectomy (11/25/09) FOR ADENCARCINOMA; DR. BRANTLEY;right History of kidney surgery (~05/08/22) [facility] [place] for removal of 5 lesions History of tonsillectomy Hx of ankle fusion lt ankle nonunion left humerus Status post ankle fusion (02/21/19) Status post ankle fusion that resulted in failure Status post subtalar and tibiotalar fusion using IM nail DOS: 02/21/2019 Dr. Mcbride Tobacco Smoking/Tobacco Use Status: Former Tobacco Use Alcohol Alcohol Intake: never Substance Use Substance use: Daily Substance use type: marijuana Vital Signs and Lab Results Lab Results Blood Type / Crossmatch: No Data to Display Complete Blood Count: No Data to Display Complete Metabolic Panel: No Data to Display Liver Function Panel: No Data to Display Coagulation Panel: No Data to Display Cardiac Panel: No Data to Display Arterial Blood Gas: No Data to Display Venous Blood Gas: No Data to Display Pancreas Panel: No Data to Display Thyroid Panel: No Data to Display Infectious Disease: No Data to Display Blood Cultures: No Data to Display Toxicology Panel: No Data to Display Anesthesia Assessment and Plan Anesthesia History Personal History: No History of Anesthesia Complications Family History: No Family History of Anesthesia Complications Exercise Tolerance Exercise Tolerance: Metabolic Equivalents>4 Pertinent Negatives Pertinent Negatives: No Symptoms of GERD and No History of CVA/TIA Cardiac & Pulmonary Exam Cardiac Exam: Normal S1/S2 Heart Sounds Pulmonary Exam: Clear Bilateral Breath Sounds Implantable Cardiac Device Does patient have a Pacemaker or an ICD?: No Airway Exam Known Difficult Airway: No Mallampati Class: 2 Mouth Opening: Normal (> 3cm) Thyromental Distance: Greater than 3 cm Neck Range of Motion: Full ROM Neck Circumference: Normal Teeth Condition: Normal Dentition ASA Classification ASA Score: ASA 2 Emergency Case?: No NPO Status NPO Status: NPO Clears >2 hours, Solids >8 hours Anesthesia Plan Resuscitation Status: Full Code Anesthesia Technique: General Anesthesia Airway Planned: Natural Airway Monitors Used: Standard Monitors Preoperative Comments:: dry heaving with one episode of vomiting. none since
[2022-07-01 08:46] VITALS: BP 150/77; PULSE 68; RESP 17; TEMP 36.9; O2SAT 98
[2022-07-01] MEDS: Lactated Ringers 1,000 ML 80 ML IV (09:05)
[2022-07-01 10:13] VITALS: BMI 28.7
--- NOTE | 2022-07-01 10:29 | BOWEL_PTH ---
PATIENT: Tim Evans LOC: [facility] U#:[id number] AGE/SX: 66/M ROOM: RE07/01/[address]: Aviva Anton MD : [id number] BED: DIS: 07/01/2022 SPEC #: [id number] RECD: 07/01/22 12:59 STATUS: PASTORA REQ #: [id number] EYAL: 07/01/22 10:[address]: Aviva Anton DEPT: Surgical Specimen RECD BY: Cynthia Laird ENTERED: 07/01/22 13:00 SP TYPE: Bowel OTHR DR: Arline Murphy, PhD LABORATORY PHLEBOTOMIST Tissues: 1 - BIOPSY BOWEL 2 - BIOPSY BOWEL Procedures: GROSS AND MICRO LEVEL 4 Comments: [id number]
[2022-07-01 10:41] VITALS: BP 117/83; PULSE 76; RESP 18; TEMP 36.6; O2SAT 98
[2022-07-01 11:13] VITALS: BP 146/87; PULSE 67; RESP 17; TEMP 36.8; O2SAT 98
--- NOTE | 2022-07-01 12:22 | W.ANESPOSTOP ---
Postoperative Evaluation Date, Time and Location Date Performed: 07/01/22 Time Performed: 12:22 Patient Location: Day Surgery Unit Vital Signs Most Recent Imported Vital Signs: Most Recent Vital Signs Temp Pulse Resp BP Pulse Ox 36.8 C 67 17 146/87 H 98 07/01/22 11:13 07/01/22 11:13 07/01/22 11:13 07/01/22 11:13 07/01/22 11:13 Pain Score Most Recent Pain Score: Most Recent Pain Score Pain Level 0 07/01/22 11:13 Assessment Mental Status: Awake (Alert & Oriented to Patient Baseline) Airway and Respiratory Function: Patent airway with normal (patient baseline) respiratory exam Cardiovascular Function: Hemodynamically Stable Hydration Status: Adequately Hydrated Nausea & Vomiting: No Nausea or Vomiting Pain: Pt. Denies Any Pain Peripheral Nerve Block: Patient did not receive a nerve block Postoperative Comments:: Patient seen earlier today and was appropriate for home
== END 2022-07-01 11:25 | disposition home or self-care (01) ==
PROVIDERS: PCP Nurse Practitioner; Visit Provider Surgery
PROC: 0DJD8ZZ Inspection of Lower Intestinal Tract, Via Natural or Artificial Opening Endoscopic (ICD-10-PCS; CPT 45378; principal; 2022-07-01 10:15)
DX: Z12.11 Encounter for screening for malignant neoplasm of colon (principal); K63.5 Polyp of colon; Z85.038 Personal history of other malignant neoplasm of large intestine; Z86.010 Personal history of colon polyps
CPT/HCPCS: 45385; 88305

== ENCOUNTER 2022-10-28 01:20 | Outpatient (CLI) | payer MEDICARE, BC, SELFPAY ==
--- NOTE | 2022-10-28 06:45 | DI.US_ITS ---
Exam(s) US SCROTUM EXAM: US SCROTUM CLINICAL HISTORY: chronic rt testicular pain, no trauma, enlarged testicle,n50.89,n50.811 TECHNIQUE: Ultrasound of the testes performed using grayscale, color, and Doppler imaging. COMPARISON: US US ABDOMEN RENAL from 03/13/2021 FINDINGS: RIGHT HEMISCROTUM: Right testicle measures 3.2 by 1.2 x 2.3 cm. Left testicle measures 4.2 by 2.3 x 3 cm. No evidence of intratesticular mass on either side. Vascular flow is demonstrated in both testicles. Small right hydrocele noted. No hydrocele on the left side. Small varicocele on the left side not ed. No epididymal head cysts. IMPRESSION: 1. No evidence of testicular mass nor testicular torsion. 2. Small right hydrocele 3. Small left varicocele. DATA REPOSITORY:
== END 2022-10-28 01:40 ==
LOC: DI 01:20
PROVIDERS: PCP Nurse Practitioner Family; Visit Provider Nurse Practitioner Family
DX: N50.811 Right testicular pain (principal); N50.89 Other specified disorders of the male genital organs; N43.3 Hydrocele, unspecified
CPT/HCPCS: 76870

== ENCOUNTER 2022-12-28 03:52 | Outpatient (CLI) | payer MEDICARE, BC, SELFPAY ==
[2022-12-28 09:51] LABS: Abs Immature Grans 0.03 10^3/uL (0.0-0.06); Absolute Basophil Count 0.07 10^3/uL (0.0-0.2); Absolute Eosinophil Count 0.14 10^3/uL (0.0-0.7); Absolute Monocyte Count 0.63 10^3/uL (0.1-0.8); Absolute Neutrophil Count 6.87 10^3/uL (1.2-6.7); Basophils % 0.7; Eosinophils % 1.4; HCT 39.2 % (40.0-50.0); HGB 13.3 g/dL (13.5-17.5); Immature Grans % 0.3; Lymphocytes % 20.5; MCH 30.5 pg (27.0-33.0); MCHC 33.9 % (32.0-36.0); MCV 90 fL (80-95); MPV 8.7 fL (8.0-11.0); Monocytes % 6.5; Neutrophils % 70.6; Platelet Count 217 10^3/uL (130-400); RBC 4.36 10^6/uL (4.36-5.78); RDW 13.7 % (11.8-14.1); WBC 9.74 10^3/uL (4.4-10.8)
[2022-12-28 10:23] LABS: CREATININE 1.4 mg/dL (0.70-1.30); Estimated GFR 55.43 (mL/min/1.73m2)
== END 2022-12-28 03:53 | disposition home or self-care (01) ==
PROVIDERS: PCP Nurse Practitioner Family; Visit Provider Surgery
DX: C64.2 Malignant neoplasm of left kidney, except renal pelvis (principal)
CPT/HCPCS: 36415; 82565; 85025

== ENCOUNTER 2023-01-13 07:36 | Outpatient (CLI) | payer MEDICARE, BC, SELFPAY ==
--- NOTE | 2023-01-13 07:30 | RT.EKG_ITS ---
APPROVED REPORT Exam: Resting ECG Reason for Exam: SVT Patient Location: O HR:97 bpm ECG Measurements Heart Rate 97 AXIS [place] [id number] P [id number] QRSd 95 QRS -15 QT 358 T -69 QTc 455 Conclusion Atrial flutter with varied AV block,...A-rate 288, varied AV conduction Multiple ventricular premature complexes...V complexes w/ short R-R intervls Borderline left axis deviation...QRS axis (-15,-29) Nonspecific ST-T abnormalities
== END 2023-01-13 07:37 | disposition home or self-care (01) ==
PROVIDERS: PCP Nurse Practitioner Family; Visit Provider Internal Medicine Cardiovascular Disease
DX: I47.1 Supraventricular tachycardia (principal); I49.3 Ventricular premature depolarization; I48.92 Unspecified atrial flutter; R00.8 Other abnormalities of heart beat
CPT/HCPCS: 93010

== ENCOUNTER → 2023-01-13 13:42 | Outpatient (BNVA) | payer MEDICARE, BC, SELFPAY | PROVIDERS: PCP Nurse Practitioner Family; Referring Provider Nurse Practitioner Family; Visit Provider Internal Medicine Cardiovascular Disease | DX: I48.91 Unspecified atrial fibrillation (principal); E11.9 Type 2 diabetes mellitus without complications; I10 Essential (primary) hypertension | CPT/HCPCS: 93005; 99214 ==

== ENCOUNTER 2023-01-20 00:48 | Outpatient (CLI) | payer MEDICARE, BC, SELFPAY ==
--- NOTE | 2023-01-20 09:10 | DI.RAD_ITS ---
Exam(s) XR CHEST 2V PA LATERAL EXAM: XR CHEST 2V PA LATERAL CLINICAL HISTORY: RENAL CELL CA,C64.9. TECHNIQUE: 2D digital imaging was performed. COMPARISON: CR XR CHEST 2V PA LATERAL from 04/22/2022 FINDINGS: 2 views: Again noted is left anterior chest wall cardiac loop detector. Heart size upper normal. Mediastinum not widened. Lungs are clear. No infiltrates nor pleural effusions. No pulmonary edema. No pneumothorax. IMPRESSION: No acute pulmonary findings. DATA REPOSITORY: RADIATION DOSE DELIVERED:
--- NOTE | 2023-01-20 10:14 | DI.CT_ITS ---
Exam(s) CT ABDOMEN PELVIS WO/W EXAM: CT ABDOMEN PELVIS WO/W CLINICAL HISTORY: F/U RENAL CELL CA,C64.9. TECHNIQUE: Imaging Protocol: Axial computed tomography images with coronal and sagittal reformatted images were created and reviewed CONTRAST MATERIAL: Intravenous: Omnipaque-350 100cc Oral: None COMPARISON: CT CT ABDOMEN PELVIS WO/W from 04/08/[address] ABDOMEN WO/W from 01/30/2022 FINDINGS: VISUALIZED LUNG BASES: No nodules nor pleural effusions evident. ABDOMEN: There is tiny amount of perihepatic ascites evident, not previously present. LIVER: There are no ominous focal hepatic lesions. Mild dilatation of intrahepatic ducts noted. GALLBLADDER/BILIARY: Gallstones again noted. CBD is not dilated. PANCREAS: No evidence of pancreatic mass nor dilatation of the pancreatic duct. SPLEEN: Spleen size upper normal. No splenic lesions. Splenic and portal veins are patent. ADRENALS: Hypodense nodule in the medial limb of the right adrenal gland is again noted, measuring 1. 3 1.2 cm, unchanged. Thickening of the genu of the left adrenal gland also again noted. KIDNEYS:In the right kidney the previously described upper pole abnormality a significantly changed i n size and appearance. This now measures 6.6 cm wide by 6 cm AP by 5 cm cephalocaudal and contains b oth soft tissue and tissue and fat density. Also a few small peripheral mural base nodules, measurin g up to 6 x 7 mm.. These findings may be related to interval percutaneous intervention. There are s ome solid-appearing nodular densities in the peripheral aspect of this finding. Remainder of the lef t kidney appears unremarkable. There is no tumor thrombus within the left renal vein. In the opposite-right kidney there is a subtle hypodense area in the lateral aspect of the upper pole measuring 1.5 x 1.2 cm, not appearing to be a typical cyst. Cannot exclude possibly this is anothe r neoplasm in similar fashion to what was evident in the upper pole of the opposite-left kidney. The re is also a tiny 4 millimeter benign cortical cyst in the medial aspect of the right kidney. There are no calculi. No hydronephrosis. No evidence of tumor thrombus in the right renal vein.. URETERS: Solitary nondilated ureter on each side. ABDOMINAL AORTA: Moderate atherosclerosis. Upper normal diameter. LYMPH NODES:There is no retroperitoneal nor paraaortic adenopathy. ABDOMINAL WALL: No evidence of significant anterior abdominal wall nor inguinal hernia. GI: There is evidence of prior right hemicolectomy again noted. No evidence of small-bowel obstructi on. There is, however, circumferential thickening of wall of the sigmoid which exhibits thickness 5 millimeter. No diverticulosis nor diverticulitis. PELVIS: LYMPH NODES: There is no intrapelvic nor inguinal adenopathy. REPRODUCTIVE: Prostate gland is enlarged measuring 5.8 cm wide by 4.5 cm AP. There is no obturator a denopathy. URINARY BLADDER: No calculi nor obvious masses evident OSSEOUS: No lytic osseous lesions. Sclerotic benign appearing bone densities noted in the left hemip swetha probably benign bone islands. The most dense of these is in the posterior acetabulum left-side , unchanged from prior studies. Multilevel chronic advanced degenerative disc disease in the lumbar spine. No new lytic nor blastic osseous lesions evident. IMPRESSION: 1. Compared to the prior CT scans the previously described mass in the upper pole the left kidney has significantly changed in size and appearance, presently measuring 6.6 x 6.0 x 5.0 cm and containing multiple densities including fluid density, fat density, and peripheral nodular densities. Suspect t hat this may be related to interval percutaneous intervention/ablation therapy but correlation with t he actual history is recommended. There is no tumor thrombus in the left renal vein. 2. In the upper pole of the opposite-right kidney there is a 1.5 x 1.2 cm hypodense area which is too dense to be a simple cyst and may possibly represent additional neoplasm. 3. Small amount of perihepatic ascites noted. This was not previously present. 4. No evidence of mass in the urinary bladder. Enlarged prostate gland. 6. Cholelithiasis again noted. 7. Again noted is evidence of right hemicolectomy. No bowel obstruction. However, there is circumf erential thickening of long segment of the sigmoid, not associated with diverticuli. Suspect chronic -type colitis pattern. Can be further study with colonoscopy. RADIATION DOSE DELIVERED: 2,460.11mGy.cm Total DLP DATA REPOSITORY: All CT scans at this facility are submitted to the National Radiology Data Registry (NRDR) Dose Index Registry (DIR) with the [employer] (A[employer]). RADIATION OPTIMIZATION: All CT scans at this facility use at least one of these dose optimization te chniques: automated exposure control; mA and/or kV adjustment per patient size (includes targeted exa ms where dose is matched to clinical indication); or iterative reconstruction.
[2023-01-20] MEDS: Omnipaque 350 MG/ML 500 ML BTL-Imaging package IJ (10:23)
[2023-01-20] MEDS: Normal Saline Flush 10 ML SYR IVP (10:25)
== END 2023-01-20 01:08 ==
LOC: DI 00:48
PROVIDERS: PCP Nurse Practitioner Family; Visit Provider Surgery
DX: C64.2 Malignant neoplasm of left kidney, except renal pelvis (principal); R18.8 Other ascites; K80.20 Calculus of gallbladder without cholecystitis without obstruction; D35.01 Benign neoplasm of right adrenal gland; N28.89 Other specified disorders of kidney and ureter; N40.0 Benign prostatic hyperplasia without lower urinary tract symptoms; Z98.0 Intestinal bypass and anastomosis status
CPT/HCPCS: 71046; 74178

== ENCOUNTER → 2023-03-12 07:50 | Outpatient (BNVA) | payer MEDICARE, BC, SELFPAY | PROVIDERS: PCP Nurse Practitioner Family; Referring Provider Nurse Practitioner Family; Visit Provider Urology | DX: R39.89 Other symptoms and signs involving the genitourinary system (principal); N50.819 Testicular pain, unspecified; R35.1 Nocturia | CPT/HCPCS: 51798; 99215 ==

== ENCOUNTER → 2023-03-31 08:20 | Outpatient (BNVA) | payer MEDICARE, BC, SELFPAY | PROVIDERS: PCP Nurse Practitioner Family; Referring Provider Nurse Practitioner; Visit Provider Physician Assistant | DX: I48.91 Unspecified atrial fibrillation (principal); Z79.01 Long term (current) use of anticoagulants; Z95.818 Presence of other cardiac implants and grafts | CPT/HCPCS: 93298; 99213 ==

== ENCOUNTER 2023-04-08 04:09 | Outpatient (CLI) | payer MEDICARE, BC, SELFPAY ==
[2023-04-08 11:29] LABS: TSH (W/Ref FT4) 0.98 uIU/mL (0.36-3.74)
[2023-04-08 19:33] LABS: PSA, Diagnostic 2.1 ng/mL (<=4.5)
== END 2023-04-08 04:10 | disposition home or self-care (01) ==
LOC: LBO 04:09
PROVIDERS: Physician Assistant; PCP Nurse Practitioner Family; Visit Provider Urology
DX: R35.1 Nocturia (principal); F41.9 Anxiety disorder, unspecified; I48.0 Paroxysmal atrial fibrillation
CPT/HCPCS: 36415; 84153; 84443

== ENCOUNTER → 2023-04-12 10:21 | Outpatient (BNVA) | payer MEDICARE, BC, SELFPAY | PROVIDERS: PCP Nurse Practitioner Family; Referring Provider Nurse Practitioner Family; Visit Provider Urology | DX: R39.89 Other symptoms and signs involving the genitourinary system (principal); R31.29 Other microscopic hematuria | CPT/HCPCS: 81003; 99214 ==

== ENCOUNTER 2023-04-15 01:47 | Outpatient (CLI) | payer MEDICARE, BC, SELFPAY ==
[2023-04-15 10:18] LABS: Abs Immature Grans 0.03 10^3/uL (0.0-0.06); Absolute Basophil Count 0.05 10^3/uL (0.0-0.2); Absolute Eosinophil Count 0.12 10^3/uL (0.0-0.7); Absolute Neutrophil Count 5.44 10^3/uL (1.2-6.7); Basophils % 0.7; Eosinophils % 1.7; HCT 39.5 % (40.0-50.0); HGB 13.5 g/dL (13.5-17.5); Immature Grans % 0.4; Lymphocytes % 16.6; MCH 30.7 pg (27.0-33.0); MCHC 34.2 % (32.0-36.0); MCV 90 fL (80-95); Monocytes % 5.5; Neutrophils % 75.1; Platelet Count 188 10^3/uL (130-400); RDW 13.6 % (11.8-14.1); RDW-SD 44.7 fL; WBC 7.24 10^3/uL (4.4-10.8)
[2023-04-15 10:31] LABS: CREATININE 1.4 mg/dL (0.70-1.30); Estimated GFR 55.43 (mL/min/1.73m2)
[2023-04-15] MEDS: Gadoterate meglumine 20 ML VIAL IVP (10:47)
[2023-04-15] MEDS: Normal Saline - Diluent 50 ML VIAL IJ (10:48)
--- NOTE | 2023-04-15 11:30 | DI.MRI_ITS ---
Exam(s) MR ABDOMEN WO/W EXAM: MR ABDOMEN WO/W CLINICAL HISTORY: RENAL CELL CA, C64.9, S/P LT PARTIAL NEPHRECTOMY, ? RT RENAL MASS ON CT TECHNIQUE: Multiplanar multisequence MRI of the Abdomen was performed. CONTRAST MATERIAL: IV Contrast: 18 mL of Dotarem contrast administered. COMPARISON: CT CT ABDOMEN WO/W from 01/30/[address] ABDOMEN PELVIS WO/W from 01/20/2023 FINDINGS: Liver: Unremarkable. Pancreas: Unremarkable. Gallbladder and Bile Ducts: Single gallstone. No gallbladder wall thickening or biliary dilatation. Adrenals: Stable tiny nodules. Kidneys: Left kidney: Mild interval decrease in size of previously noted collection at the lateral ri ght kidney measuring 6 x 4.4 by 4.5 cm. Mixture of fluid and fat contents. No abnormal enhancement. Right kidney: Several tiny cysts are seen. No mass is noted at the upper pole of the left kidney. T here is a small fluid density collection a slight defect which may indicate scarring. It is difficul t to evaluate due to its small size and motion artifact. It is measured maximally at 9 millimeters, best seen on the coronal T2 sequence. This was measured at 1.5 cm on the prior exam. Spleen: Mildly prominent, stable. Normal signal. Aorta: Unremarkable. Soft Tissues: Unremarkable. Bone: T11 hemangioma. Advanced degenerative disc changes and scoliosis noted. Lymph Nodes: Unremarkable. Bladder unremarkable. Prostate mildly enlarged. IMPRESSION: Interval decrease in size of fat and fluid density lesion of the left kidney likely post surgical. No mass is visible at the superior pole of the right kidney. There is a small area of scarring and a small fluid collection versus cyst. DATA REPOSITORY:
== END 2023-04-15 02:07 ==
LOC: DI 01:47
PROVIDERS: PCP Nurse Practitioner Family; Visit Provider Surgery
DX: C64.9 Malignant neoplasm of unspecified kidney, except renal pelvis (principal)
CPT/HCPCS: 74183; 82565; 85025

== ENCOUNTER 2023-04-22 15:09 | Outpatient (CLI) | payer MEDICARE, BC, SELFPAY ==
--- NOTE | 2023-04-22 10:00 | DI.US_ITS ---
APPROVED REPORT EXAM: Comprehensive 2D, Doppler, and color-flow Echocardiogram Patient Location: Out-Patient Dumpster Operator: Juan Naranjo RDMS, RVT Indications: paroxysmal afib, HTN Other Information Study Quality: Adequate Conclusion Normal left ventricular wall thickness and chamber size. Ejection fraction is 60%. Wall motion is n ormal Normal right ventricular size and systolic function Left atrium is mildly dilated. Right atrial size is normal Aortic valve is trileaflet and sclerotic with trace regurgitation Normal mitral valve with mild regurgitation. Mild mitral annular calcification Normal tricuspid valve with mild regurgitation. Estimated right ventricular systolic pressure is 26 mmHg Dilated ascending aorta measuring 4.01 cm Wall motion Left Ventricle The left ventricle is normal size. The left ventricular systolic function is normal. The left ventric ular ejection fraction is within the normal range. There is normal left ventricular wall thickness. T here is normal LV segmental wall motion. There is no ventricular septal defect visualized. LVEF is 60 %. Right Ventricle The right ventricle is normal size. The right ventricular systolic function is normal. The RVSP is 25 .7 mmHg. Atria Left atrium is mildly dilated. The right atrium size is normal. The interatrial septum is intact with no evidence for an atrial septal defect. Aortic Valve The Aortic valve is sclerotic. Aortic valve is trileaflet. There is no aortic valvular stenosis. Trac e aortic regurgitation. Mitral Valve The mitral valve is normal in structure. No evidence of mitral valve stenosis. Mild mitral regurgitat ion. Tricuspid Valve The tricuspid valve is normal in structure. There is no tricuspid valve stenosis. Mild eccentric tric uspid regurgitation. Pulmonic Valve The pulmonary valve is normal in structure. There is no pulmonic valvular stenosis. Trace to mild pul francoise regurgitation. Great Vessels Aortic root is borderline dilated. The ascending aorta is moderately dilated. Aortic arch is normal i n caliber. IVC is normal in size and collapses >50% with inspiration. Pericardium There is no pericardial effusion. 2D Dimensions IVSD d PLAX 0.79 cm M: 0.6-1.2 LV Vol A2C d MOD 193.7 mL LVPW d PLAX 0.79 cm M: 0.6 - 1.2 LV Vol A4C d MOD 172.2 mL LVID d PLAX 4.76 cm M: 4.2 - 5.8 LA vol/ BSA A4C s A-L 39.2 mL/m2 LVDs 3.45 cm M: 2.5 - 4.0 LA Area A4C s MOD 24.01 cm2 Ao Root d 3.78 cm M: 3.1 - 3.7 LV EF A4C MOD 51.1 % Ao Asc Diam d 4.01 cm M: 2.6 - 3.4 LV EF A2C MOD 51.8 % LV EF Teichholz 52.6 % LV EF Biplane MOD 52.7 % LVEF (Hernandez's) 52.67 % M: 52 - 72 SV 100.85 mL LV Volume 142.68 mL M: 62 - 150 SV Index 49.46 mL/m2 LV Volume Index 69.94 mL/m2 M: 34 - 74 LV Vol Biplane MOD 191.5 mL FS 26.95 % M-Mode TAPSE 2.15 cm (M/F) >1.7 LV Diastology MV E' medial 0.178 (>0.07 m/s) E/A Ratio 1.9 LV E/e MED 5.20 (<14) MV E Vmax 0.93 (0.4-1.3 m/s) MV E' lateral 0.207 (>0.1 m/s) MV A Vmax 0.50 (0.4-1.3 m/s) LV E/e LAT 4.50 (<14) MV E/A Ratio 1.75 MV E/E' medial 5.24 MV E/E' lateral 4.50 Aortic Valve LVOT Area 4.22 cm2 AoV Area Vmax 2.92 cm2 LVOT Vmax 0.84 m/s AoV Area/ BSA (Vmax) 1.43 cm2/m2 LVOT Mean Luis. 0.56 m/s NEEMA Mean Luis. 2.82 cm2 LVOT Peak Grad 2.8 mmHg NEEMA Mean Luis. Index 1.38 cm2/m2 LVOT Mean Grad 1.5 mmHg AR DT 1815 msec LVOT VTI 0.178 m AR PHT 526 msec LVOT Diam s 2.30 cm AoV Vmax 1.21 m/s Velocity Ratio 0.69 AoV Mean Luis. 0.84 m/s AoV Peak Grad 5.9 mmHg LVOT SV 75.08 mL AoV Mean Grad 3.2 mmHg AoV VTI 0.240 m AoV Area VTI 3.13 cm2 AoV Area/ BSA (VTI) 1.53 cm/m2 Mitral Valve MV DT 133 (160-240 msec) MV PHT 39 msec MV Area PHT 5.69 cm2 MV VTI 0.214 m MV Area VTI 3.51 (4.0-6.0 cm2) Pulmonary Valve PV Vmax 0.76 (0.5-1.5 m/s) RVOT Peak Gr. 0.88 mmHg PV Peak Grad 2.3 mmHg RVOT Mean Gr. 0.45 mmHg PV Mean Grad 1.3 mmHg RVOT VTI 0.104 m PV VTI 0.178 m RVOT Vmax 0.47 m/s Tricuspid Valve TR Peak Grad 22.7 mmHg TR Vmax 2.38 m/s RA Pressure 3.00 mmHg RVSP (TR) 25.7 mmHg
== END 2023-04-22 15:29 ==
LOC: DI 15:15
PROVIDERS: PCP Nurse Practitioner Family; Visit Provider Physician Assistant
DX: I10 Essential (primary) hypertension (principal); I48.0 Paroxysmal atrial fibrillation
CPT/HCPCS: 93306

== ENCOUNTER 2023-05-24 06:07 | Day surgery (SDC) | payer MEDICARE, BC, SELFPAY ==
--- NOTE | 2023-05-24 06:43 | W.PM.HP.N ---
Date of service: 05/24/23 Time of Service: 06:43 Assessment and Plan Assessment and plan (1) Microscopic hematuria: Status: Acute Assessment and plan: For cystoscopy with possible biopsy/transurethral resection of any visible bladder tumor or abnormality. History of Present Illness History of Present Illness Chief Complaint: Hematuria Narrative: This is a 67-year-old gentleman who has a history of renal cell carcinoma. He is followed by the urology team at [facility]. He had undergone partial nephrectomy previously. We saw this gentleman for lower urinary tract symptoms. He has been noticing rust colored urine in his urinal. His urinalysis showed 3-5 red blood cells per high-power field. Imaging of his upper tracts showed no recurrence of his renal cell carcinoma. He presents now for cystoscopy and possible transurethral resection to evaluate his lower urinary tract. Review of Systems Narrative: No fevers or chills No vision change or dysphasia Diabetes. No thyroid dysfunction No shortness of breath, cough or hemoptysis Hx atrial fibrillation. No chest pain GERD. No hepatitis, ulcers, jaundice No seizures, strokes No bleeding disorders or anemia Chronic back pain. Hx Gout PFSH All Active Problems Microscopic hematuria (Acute) Paroxysmal A-fib (Acute) Implantable loop recorder present (Acute) Lower urinary tract symptoms (LUTS) (Acute) Atrial fibrillation (Chronic) Nocturia (Acute) Enlarged testicle (Acute) left Testicular pain, right (Acute) Tubular adenoma of colon (Acute) Hyperplastic colon polyp (Acute) Anxiety (Acute 02/16/13) Diabetic polyneuropathy associated with type 2 diabetes mellitus (Acute 12/01/17) Gastroesophageal reflux disease with esophagitis (Acute 02/16/13) Gout (Chronic 05/31/13) controlled on allopurinol Hypertension (Acute) Primary malignant neoplasm of colon (Acute 11/10/09) Adenocarcinoma --terminal ileum and ascending colon; cecum; Right Hemicolectomy 11/25/09 Sleep disorder (Acute 08/08/14) insomnia, cannibus with good effect Spinal stenosis (Acute) 2021- lower right back pain Ulcerative colitis (Acute 02/16/13) 08/19 COLONOSCOPY: ONE TUBULOVILLOUS ADENOMA AND ONE HYPERPLASTIC POLYP. 10/20 COLONOSCOPY: ULCERATIVE COLITIS AND LARGE CECAL DYSPLASIC LESION; DR. BENSEN RECOMM Balance disorder (Acute) Left ankle pain (Chronic) L ankle fused x 2 Irregular heart beat (Acute) 2021- controlled on verapamil 06/2020- Seen [facility] [place]- Zio patch stress echo schedules 07/2020-monitor study remarkable for sinus ryhtm Hip pain, right (Acute) Lumbar radiculopathy (Acute) Renal mass (Acute) Hematuria (Acute) Medical History Anxiety Back pain of lumbar region with sciatica (06/08/16) Balance disorder Pt. walks with a cane, he broke his ankle and never healed correctly, and he states he has some vertigo Cholelithiasis identified during ultrasound, non- symptomatic De Quervain's tenosynovitis, right (10/15/17) resolved- surgery 06/2020 Delayed surgical wound healing (04/22/18) Encounter for loop recorder check [employer] LINQ [id number] 09/19/2020 Fracture of left humerus (04/11/14) GERD with esophagitis H/O supraventricular tachycardia History of atrial fibrillation pt. states he had a-fib and an ablation 2013 History of tobacco use HTN (hypertension) Hyperlipidemia (02/16/13) Nonunion of subtalar arthrodesis Original fusion 02/23/2018 Primary malignant neoplasm of colon 2009 right hemicolectomy Sciatica of left side (12/01/17) Sessile colonic polyp (03/15/17) Status post placement of implantable loop recorder Med[employer] Reveal LINQ [id number] 09/17/2020 Supraventricular tachycardia (02/16/13) radioabation 09/2014 Pt. states he wears a heart monitor called a PVB (PVC). SVT (supraventricular tachycardia) 2013 radioablation UC (ulcerative colitis) 2010 - UC w/ large cecal dysplastic lesion Surgical History Carpal tunnel syndrome of right wrist Status post ECTR DOS: 06/04/2020 Colonoscopy - MAC (03/15/17) 06/2022 EGD - MAC (03/15/17) Hemicolectomy (11/25/09) FOR ADENCARCINOMA; DR. BRANTLEY;right History of kidney surgery (~05/08/22) [facility] [place] for removal of 5 lesions History of tonsillectomy Hx of ankle fusion lt ankle nonunion left humerus Status post ankle fusion (02/21/19) Status post ankle fusion that resulted in failure Status post subtalar and tibiotalar fusion using IM nail DOS: 02/21/2019 Dr. Mcbride Family History Mother Diabetes Essential hypertension Dementia Heart disease Stroke Sister Diabetes Heart disease Neoplasm Brother Hyperlipidemia Social History Smoking/Tobacco Use Status: Former Tobacco Use Quit Date: 10/11/89 Smoking risk assessment performed?: Yes Alcohol Intake: never Drug use: Daily Substance use type: marijuana Housing: house Current gender identity: male Do you feel safe at home: Yes Do you feel safe in your relationship?: Yes Meds Allergies and Home Medications Allergies Allergy/AdvReac Type Severity Reaction Status Date / Time No Known Allergies Allergy Verified 05/24/23 06:43 Home Medications Medication Instructions Recorded Confirmed Type insulin glargine 100 unit/mL (3 25 unit (0.25 mL) subcut QPM #15 mL 07/20/22 05/24/23 Rx mL) subcutaneous pen (Basaglar KwikPen U-100 Insulin) lamotrigine 100 mg tablet 100 mg PO BID #180 tabs 08/03/22 05/24/23 Rx quetiapine 25 mg tablet 25 mg PO QHS #90 tabs 08/03/22 05/24/23 Rx allopurinol 300 mg tablet 300 mg PO DAILY #90 tabs 10/21/22 05/24/23 Rx hydrochlorothiazide 12.5 mg capsule 12.5 mg PO DAILY #90 caps 10/21/22 05/24/23 Rx lisinopril 20 mg tablet 20 mg PO DAILY #90 tab-caps 10/21/22 05/24/23 Rx omeprazole 40 mg capsule,delayed 40 mg PO HS #90 caps 10/21/22 05/24/23 Rx release sertraline 100 mg tablet (Zoloft) 200 mg PO DAILY #180 tabs 02/19/23 05/24/23 Rx verapamil 240 mg tablet,extended 240 mg PO BID #180 tabs 03/31/23 05/24/23 Rx release apixaban 5 mg tablet (Eliquis) 5 mg PO BID #90 tabs 04/27/23 05/24/23 Rx Exam Const General: cooperative Neck Neck: supple Resp Effort & Inspection: normal respiratory effort Auscultation: clear to auscultation bilaterally Cardio Rate: tachycardic Rhythm: regular rhythm GI Palpation: soft and no masses Neuro General: patient alert, patient awake and patient oriented x3 Time Spent Time spent with Patient: <40 minutes Time was spent: other
[2023-05-24 06:45] VITALS: BP 159/88; PULSE 84; RESP 16; TEMP 36.6; O2SAT 99
--- NOTE | 2023-05-24 07:18 | W.ANESPRE ---
General Info Date of Service Date Performed: 05/24/23 Height: 5 ft 10 in Weight: 91.3 kg Body Mass Index (BMI): 28.8 Surgical Procedure: Operation Date: 05/24/23 07:40 Proposed Procedure Side Surgeon p Cystoscopy with Bladder Biopsy and Fulguration Hardik Espinoza MD Meds Allergies and Home Medications Allergies Allergy/AdvReac Type Severity Reaction Status Date / Time No Known Allergies Allergy Verified 05/24/23 06:43 Home Medication Medication Instructions Recorded insulin glargine 100 unit/mL (3 25 unit (0.25 mL) subcut QPM #15 mL 07/20/22 mL) subcutaneous pen (Basaglar KwikPen U-100 Insulin) lamotrigine 100 mg tablet 100 mg PO BID #180 tabs 08/03/22 quetiapine 25 mg tablet 25 mg PO QHS #90 tabs 08/03/22 allopurinol 300 mg tablet 300 mg PO DAILY #90 tabs 10/21/22 hydrochlorothiazide 12.5 mg capsule 12.5 mg PO DAILY #90 caps 10/21/22 lisinopril 20 mg tablet 20 mg PO DAILY #90 tab-caps 10/21/22 omeprazole 40 mg capsule,delayed 40 mg PO HS #90 caps 10/21/22 release sertraline 100 mg tablet (Zoloft) 200 mg PO DAILY #180 tabs 02/19/23 verapamil 240 mg tablet,extended 240 mg PO BID #180 tabs 03/31/23 release apixaban 5 mg tablet (Eliquis) 5 mg PO BID #90 tabs 04/27/23 Current Visit Medications: Current Medications Generic Name Dose Route Start Last Admin Trade Name Freq PRN Reason Stop Dose Admin Ringer's Solution 1,000 mls @ 80 mls/hr 05/24/23 06:00 IV 06/20/23 23:59 INFUSION MAYELA Cefazolin Sodium/Dextrose 2 gm in 50 mls @ 100 mls/hr 05/24/23 06:00 Ancef Duplex IVPB 05/24/23 16:00 PREOP MAYELA IV Miscellaneous Supplies 1 each 05/24/23 06:00 Iv Access IV 06/20/23 23:59 DIRECTED MAYELA Sodium Chloride 0 ml 05/24/23 06:00 Normal Saline Flush 10 Ml Syr IV 06/20/23 23:59 PRN PRN Sodium Chloride 0 ml 05/24/23 06:00 Normal Saline 10 Ml Vial IJ 06/20/23 23:59 DIRECTED PRN Sterile Water 0 ml 05/24/23 06:00 Water,Injection,Sterile 10 Ml Vial IJ 06/20/23 23:59 DIRECTED PRN PFSH Active Problems Active Problems: Problem Status Onset Code Microscopic hematuria R31.29 Paroxysmal A-fib I48.0 Implantable loop recorder present Z95.818 Lower urinary tract symptoms (LUTS) R39.9 Atrial fibrillation I48.91 Nocturia R35.1 Enlarged testicle N50.89 Testicular pain, right N50.811 Tubular adenoma of colon D12.6 Hyperplastic colon polyp K63.5 Anxiety 02/16/13 F41.9 Diabetic polyneuropathy associated with type 2 diabetes mellitus 12/01/17 E11.42 Gastroesophageal reflux disease with esophagitis 02/16/13 K21.0 Gout 05/31/13 M10.9 Hypertension I10 Primary malignant neoplasm of colon 11/10/09 C18.9 Sleep disorder 08/08/14 G47.9 Spinal stenosis M48.00 Ulcerative colitis 02/16/13 K51.90 Balance disorder R26.89 Left ankle pain M25.572 Irregular heart beat I49.9 Hip pain, right M25.551 Lumbar radiculopathy M54.16 Renal mass N28.89 Hematuria R31.9 Medical History Medical History Anxiety Back pain of lumbar region with sciatica (06/08/16) Balance disorder Pt. walks with a cane, he broke his ankle and never healed correctly, and he states he has some vertigo Cholelithiasis identified during ultrasound, non- symptomatic De Quervain's tenosynovitis, right (10/15/17) resolved- surgery 06/2020 Delayed surgical wound healing (04/22/18) Encounter for loop recorder check Medtronic LINQ LNQ11 [id number] 09/19/2020 Fracture of left humerus (04/11/14) GERD with esophagitis H/O supraventricular tachycardia History of atrial fibrillation pt. states he had a-fib and an ablation 2013 History of tobacco use HTN (hypertension) Hyperlipidemia (02/16/13) Nonunion of subtalar arthrodesis Original fusion 02/23/2018 Primary malignant neoplasm of colon 2009 right hemicolectomy Sciatica of left side (12/01/17) Sessile colonic polyp (03/15/17) Status post placement of implantable loop recorder Turbine Air Systemstronic Reveal LINQ LNQ11 [id number] 09/17/2020 Supraventricular tachycardia (02/16/13) radioabation 09/2014 Pt. states he wears a heart monitor called a PVB (PVC). SVT (supraventricular tachycardia) 2013 radioablation UC (ulcerative colitis) 2009 - UC w/ large cecal dysplastic lesion Medical History Comments:: Pt states he has a loop recorder implanted. Daily marijauna last yesterday. Smokes throughout day. Surgical History Surgical History Carpal tunnel syndrome of right wrist Status post ECTR DOS: 06/04/2020 Colonoscopy - MAC (03/15/17) 06/2022 EGD - MAC (03/15/17) Hemicolectomy (11/25/09) FOR ADENCARCINOMA; DR. BRANTLEY;right History of kidney surgery (~05/08/22[place] [facility] [place] History of tonsillectomy Hx of ankle fusion lt ankle nonunion left humerus Status post ankle fusion (02/21/19) Status post ankle fusion that resulted in failure Status post subtalar and tibiotalar fusion using IM nail DOS: 02/21/2019 Dr. Mcbride Tobacco Smoking/Tobacco Use Status: Former Tobacco Use Alcohol Alcohol Intake: never Substance Use Substance use: Daily Substance use type: marijuana Vital Signs and Lab Results Vital Signs Most Recent Vital Signs in EMR: Most Recent Vital Signs Temp Pulse Resp BP Pulse Ox 36.6 C 84 16 159/88 H 99 05/24/23 06:45 05/24/23 06:45 05/24/23 06:45 05/24/23 06:45 05/24/23 06:45 Lab Results Blood Type / Crossmatch: No Data to Display Complete Blood Count: No Data to Display Complete Metabolic Panel: Hemoglobin A1c 5.4 % (4.5-5.7) 04/27/23 09:37 Liver Function Panel: No Data to Display Coagulation Panel: No Data to Display Cardiac Panel: No Data to Display Arterial Blood Gas: No Data to Display Venous Blood Gas: No Data to Display Pancreas Panel: No Data to Display Thyroid Panel: No Data to Display Infectious Disease: No Data to Display Blood Cultures: No Data to Display Toxicology Panel: No Data to Display Imaging and Studies Imaging and Studies Study information below may be from another EMR and interpreted by another provider. Please see original notes in EMR for more complete details. EKG Summary: DATE/TIME OF SERVICE: 01/13/23 1248 : 1955PERFORMING LOCATION: .[facility] APPROVED REPORT Exam: Resting ECG Reason for Exam: SVT Patient Location: O HR:97 bpm ECG Measurements Heart Rate 97 AXIS WI [id number] P [id number] QRSd 95 QRS -15 QT 358 T-69 QTc 455 Conclusion Atrial flutter with varied AV block,...A-rate 288, varied AV conduction Multiple ventricular premature complexes...V complexes w/ short R-R intervls Borderline left axis deviation...QRS axis (-15,-29) Nonspecific ST-T abnormalities Echocardiogram Summary: Date of Exam: 04/22/23Sex: M Admission Date: 04/22/23 : 1955 Age: 67 APPROVED REPORT EXAM: Comprehensive 2D, Doppler, and color-flow Echocardiogram Patient Location: Out-Patient Grated Cheese Maker: Juan Naranjo RDMS, RVT Indications: paroxysmal afib, HTN Other Information Study Quality: Adequate Conclusion Normal left ventricular wall thickness and chamber size. Ejection fraction is 60%. Wall motion is normal Normal right ventricular size and systolic function Left atrium is mildly dilated. Right atrial size is normal Aortic valve is trileaflet and sclerotic with trace regurgitation Normal mitral valve with mild regurgitation. Mild mitral annular calcification Normal tricuspid valve with mild regurgitation. Estimated right ventricular systolic pressure is 26 mmHg Dilated ascending aorta measuring 4.01 cm Anesthesia Assessment and Plan Anesthesia History Personal History: No History of Anesthesia Complications Family History: No Family History of Anesthesia Complications Exercise Tolerance Exercise Tolerance: Metabolic Equivalents>4 Pertinent Negatives Pertinent Negatives: No Symptoms of GERD Cardiac & Pulmonary Exam Cardiac Exam: Other Pulmonary Exam: Clear Bilateral Breath Sounds Implantable Cardiac Device Does patient have a Pacemaker or an ICD?: Yes Device Hotel Assistant Manager:: ILR Medtronic LN Q11 ILR Reason for Placement:: SVT Date of Last Device Interrogation:: 03/18/2023 Airway Exam Known Difficult Airway: No Mallampati Class: 2 Mouth Opening: Normal (> 3cm) Thyromental Distance: Greater than 3 cm Neck Range of Motion: Full ROM Neck Circumference: Normal Teeth Condition: Normal Dentition ASA Classification ASA Score: ASA 3 Emergency Case?: No NPO Status NPO Status: NPO Clears >2 hours, Solids >8 hours Anesthesia Plan Resuscitation Status: Full Code Anesthesia Technique: General Anesthesia Airway Planned: Natural Airway Monitors Used: Standard Monitors
[2023-05-24 07:20] VITALS: BMI 28.8
[2023-05-24] MEDS: Lactated Ringers 1,000 ML 80 ML IV (07:20)
[2023-05-24] MEDS: ceFAZolin 2 GM/50 ML BAG IVPB (07:40)
--- NOTE | 2023-05-24 07:54 | PAPNONF_PTH ---
PATIENT: Tim Evans LOC: [facility] U#:[id number] AGE/SX: 67/M ROOM: RE05/24/[address]: Hardik Espinoza MD : 1955 BED: DIS: 05/24/2023 SPEC #: [id number] RECD: 05/24/23 13:10 STATUS: PASTORA REBrooke #: [id number] EYAL: 05/24/23 07:[address]: Hardik Espinoza DEPT: [facility] Cytology RECD BY: Kortney Hernandez ENTERED: 05/24/23 13:13 SP TYPE: RONEY ROJAS DR: Fred Vicente DNP Tissues: 1 - BODY FLUID CYTO(SPUTUM/URINE)[facility] Procedures: BODY FLUID CYTO(URINE/SPUTUM) Comments: [id number] (TV=80 ml, 30ML CYTOLYTE ADDED TO EACH CONTAINER (CYTOLYTE ADDED 1130 AM 05/24/23) (REFRIGERATED)
--- NOTE | 2023-05-24 08:02 | W.PM.OP ---
Date of service: 05/24/23 Time of Service: 08:02 Operative Note Operative Note DATE OF PROCEDURE: 05/24/23 PRE-OP DIAGNOSIS: Microscopic hematuria POST-OP DIAGNOSIS: same PROCEDURE: Cystoscopy SURGEON: Hardik Espinoza ANESTHESIA TYPE: Local By Surgeon and General:No Airway Refer to Anesthesia Record ESTIMATED BLOOD LOSS: 0 PATHOLOGY: other (Urine for cytology) COMPLICATIONS: None Patient was transported to: same day Patient's condition: stable Implants: None Indications: This is a 67-year-old gentleman who has a history of renal cell carcinoma. He he has been treated with partial nephrectomy/ablation procedures. He has had no evidence of tumor recurrence in the kidney. He has noticed blood in his urine all that he uses at night. He has not actually seen blood in his urinary stream. His urinalysis shows 3-5 red cells per high-power field. He has had imaging of his upper tracts which showed no new or recurrent lesions on the kidneys. He presents now for cystoscopy to complete his hematuria work-up Findings: No obvious tumors or stones seen Procedure Description: The patient was brought to the operating room on 05/24/2023. He was given preprocedural IV antibiotics. After successful induction of general anesthesia without intubation, he was placed in the dorsal lithotomy position. His genitalia was prepped and draped. 2% Xylocaine jelly was instilled into the urethra to act as a local anesthetic. A 22 Indian rigid cystoscope was passed through the urethra into the bladder. The urethra and bladder were inspected with the 30 degree lens. The pendulous, bulbar and membranous urethra appeared normal with no strictures. The prostatic urethra showed some lateral lobe enlargement present but no significant median lobe enlargement. There did appear to be an inflammatory polyp along the right side of the prostatic urethra. The bladder neck was entered and the bladder was emptied. We collected the urine directly from the cystoscope and sent the urine for cytology exam. The remainder of the bladder was then inspected using both the 30 and 70 degree lens. Both ureteral orifices appeared normal. No blood was seen coming from either side. No papillary or nodular lesions were seen throughout the bladder. No suspicious erythematous patches of mucosa were seen. No stones were seen within the lumen of the bladder. The bladder was emptied and the cystoscope was withdrawn. The patient tolerated this procedure well with no complications.
--- NOTE | 2023-05-24 08:04 | W.PM.DSUDISC ---
Date of service: 05/24/23 Time of Service: 08:06 Discharge Plan Disposition Patient Disposition: Home Condition: Stable Discharge Details Reason For Visit: microscopic hematuria Attending Provider: Hardik Espinoza Primary Care Provider: Fred Serrano Home Meds and New Rx's Prescriptions: No Action verapamil 240 mg tablet extended release 240 mg PO BID Qty: 180 3RF Eliquis 5 mg tablet 5 mg PO BID Qty: 90 3RF allopurinol 300 mg tablet 300 mg PO DAILY Qty: 90 3RF hydrochlorothiazide 12.5 mg capsule 12.5 mg PO DAILY Qty: 90 3RF lisinopril 20 mg tablet 20 mg PO DAILY Qty: 90 4RF omeprazole 40 mg capsule,delayed release(DR/EC) 40 mg PO HS Qty: 90 4RF insulin glargine [Basaglar KwikPen U-100 Insulin] 100 unit/mL (3 mL) insulin pen 25 unit SC QPM Qty: 15 12RF quetiapine 25 mg tablet 25 mg PO QHS Qty: 90 3RF Rx Instructions: Take 1 tablet daily lamotrigine 100 mg tablet 100 mg PO BID Qty: 180 3RF sertraline [Zoloft] 100 mg tablet 200 mg PO DAILY Qty: 180 3RF Discharge Instructions Additional Instructions: OK to restart Eliquis this evening followup 1 to 2 weeks to review cytology results Activity:: Activity as Tolerated Shower/Bathe:: 24 hours Diet:: As Tolerated Discharge Orders Discharge Orders: Discharge Order (Routine); Ordered 05/24/23 Ordered By: Hardik Espinoza DS: Diagnosis Discharge Diagnosis (1) Microscopic hematuria: Status: Acute
[2023-05-24 08:14] VITALS: BP 126/84; PULSE 65; RESP 16; TEMP 36.1; O2SAT 93
--- NOTE | 2023-05-24 08:38 | W.ANESPOSTOP ---
Postoperative Evaluation Date, Time and Location Date Performed: 05/24/23 Time Performed: 08:39 Patient Location: Day Surgery Unit Vital Signs Most Recent Imported Vital Signs: Most Recent Vital Signs Temp Pulse Resp BP Pulse Ox 36.1 C L 65 16 126/84 93 05/24/23 08:14 05/24/23 08:14 05/24/23 08:14 05/24/23 08:14 05/24/23 08:14 Pain Score Most Recent Pain Score: Most Recent Pain Score Pain Level 0 05/24/23 08:14 Assessment Mental Status: Awake (Alert & Oriented to Patient Baseline) Airway and Respiratory Function: Patent airway with normal (patient baseline) respiratory exam Cardiovascular Function: Hemodynamically Stable Hydration Status: Adequately Hydrated Nausea & Vomiting: No Nausea or Vomiting Pain: Pt. Denies Any Pain Peripheral Nerve Block: Patient did not receive a nerve block
[2023-05-24 08:40] VITALS: BP 172/94; PULSE 84; RESP 16; TEMP 36.6; O2SAT 98
== END 2023-05-24 08:50 | disposition home or self-care (01) ==
PROVIDERS: PCP Nurse Practitioner Family; Visit Provider Urology
PROC: 0TBB8ZX Excision of Bladder, Via Natural or Artificial Opening Endoscopic, Diagnostic (ICD-10-PCS; CPT 52204; principal; 2023-05-24 07:30)
DX: R31.29 Other microscopic hematuria (principal)
CPT/HCPCS: 52000; 88104; J0690; J1100; J2405; J2704

== ENCOUNTER → 2023-06-03 14:49 | Outpatient (BNVA) | payer MEDICARE, BC, SELFPAY | PROVIDERS: PCP Nurse Practitioner Family; Referring Provider Nurse Practitioner Family; Visit Provider Urology | DX: R35.0 Frequency of micturition (principal); R39.15 Urgency of urination; R31.29 Other microscopic hematuria; E11.42 Type 2 diabetes mellitus with diabetic polyneuropathy; I10 Essential (primary) hypertension | CPT/HCPCS: 99214 ==

== ENCOUNTER 2023-07-01 13:02 | Outpatient (CLI) | payer MEDICARE, BC, SELFPAY ==
--- NOTE | 2023-07-01 11:45 | DI.RAD_ITS ---
Exam(s) XR ELBOW LT COMPLETE EXAM: XR ELBOW LT COMPLETE CLINICAL HISTORY: left elbow fracture. TECHNIQUE: 2D digital imaging was performed of the left elbow. Three images were obtained. AP, lat eral and oblique views were obtained. COMPARISON: DX XR ELBOW 3 VIEWS LEFT (GENERIC) from 06/17/2023 FINDINGS: BONES: There is no change in alignment of the supracondylar distal humeral fracture. Callus formatio n has developed about the fracture site consistent with some interval healing. No new fractures iden tified. The distal aspect of an intramedullary flora and screw is seen in the humerus. No bony destru ctive lesion is seen. JOINTS: The elbow is normally aligned. No joint effusion is seen. SOFT TISSUE: Normal. IMPRESSION: Healing distal left supracondylar fracture. DATA REPOSITORY: RADIATION DOSE DELIVERED:
== END 2023-07-01 13:03 | disposition home or self-care (01) ==
LOC: DIORS 13:02
PROVIDERS: PCP Nurse Practitioner Family; Referring Provider Nurse Practitioner Family
DX: S42.412A Displaced simple supracondylar fracture without intercondylar fracture of left humerus, initial encounter for closed fracture; W19.XXXA Unspecified fall, initial encounter
CPT/HCPCS: 99213; 73080

== ENCOUNTER → 2023-07-12 01:22 | Outpatient (CLI) | payer MEDICARE, BC, SELFPAY ==
--- NOTE | 2023-07-12 07:45 | DI.NM_ITS ---
APPROVED REPORT Exam: Pharmacologic Patient Location: Out-Patient Room/Bed: Stress Nurse: Anthony Feliz RN Ordering Provider:ARNOLD NILSONMarkos DUBOIS, Contact Number: BMI: 28.55 Baseline Rhythm: SR Indications: NSTEMI, A-fib Medical History Medical History: Angina, Diabetes, GERD, SVT, A-fib, Ablation, HTN, hemothorax. Cardiac Medications: Verapamil, Quetiapine, Lisinopril, Lamotrigine, Atorvastatin, Eliquis., Allergies: No known drug allergies Cardiac Risk Factors: HTN, DM Previous Cardiac Procedures: Ablation, Myocardial infarction. Pretest Chest Pain Characteristics: No chest pain Exercise History: Sedentary Physical Disabilities: None. Lung Sounds: Clear to auscultation Heart Sounds: Regular Stress Test Details Test: Pharmacologic stress testing performed using 0.4 mg of regadenoson per 5 mL given IV over 10 s econds. Reason for pharmacologic stress test: physical limitation. Nuclear Acquisition: Rest Tc-99m/Stress Tc-99m 1 day Rest Isotope: Tc-99m Sestamibi. Dose: 10.0 Date: 07/12/2023 Injection Time: 1105 Stress Isotope: Tc-99m Sestamibi. Dose: 31.0 Date: 07/12/2023 Injection Time: 1300 HR Resting HR Supine: 78 bpm Max Heart Rate (APMHR): 154.184727 bpm Target HR (85% APMHR): 130.858375 bpm Max HR Achieved: 101 bpm % of APMHR: 65.58 Recovery HR: 97 bpm HR response to stress: Normal HR response to stress BP Resting BP Supine: 166/96 mmHg Max BP: 166/96 mmHg Recovery BP: 160/92 mmHg BP response to stress: Normal blood pressure response to stress. ECG Resting ECG: Sinus Rhythm, nonspecific ST-T abnormalities Ectopy: none Stress ECG: Sinus Rhythm ST Change: Nondiagnostic resting ST abnormalities Recovery ECG: Sinus Rhythm, nonspecific ST-T abnormalities Recovery ST Change: Nondiagnostic resting ST abnormalities Recovery Arrhythmia: none Clinical Stress Symptoms: none Rate Pressure Product: [id number] Stress ECG Conclusion 1. Resting electrocardiogram showed left ventricular hypertrophy with repolarization abnormalities 2. Patient underwent testing using pharmacologic stress with regadenoson 3. Electrocardiogram showed worsening diffuse ST depression, downsloping suggestive of myocardial isc hemia 4. Peak heart rate achieved was 66% of predicted for age 5. See MPI report Stress Test Summary STAGE HR BP SpO2 Symptoms NOTES Supine 78 166/96 1 min post Lexiscan injection 93 160/98 3 min post Lexiscan injection 101 158/88 6 min post Lexiscan injection 97 160/[address] depressions II, III, AVF. MPI Conclusion Myocardial perfusion does not demonstrate any ischemia or evidence of prior infarction Ejection fraction is calculated at 27 %. There is generalized hypokinesis with inferior and posterio r laws appearing worse Radiologist Interpretation Radiologist agrees with Road Supervisor Of Engines's Interpretation. Radiologist Interpretation by: Cecil Jarquin MD Interpretation Date/Time: 07/14/2023 12:17:46
[2023-07-12] MEDS: Regadenoson 0.4 MG/5 ML SYR IVP (13:29)
== END ==
PROVIDERS: PCP Nurse Practitioner Family; Visit Provider Nurse Practitioner Family
DX: I21.4 Non-ST elevation (NSTEMI) myocardial infarction (principal); I48.91 Unspecified atrial fibrillation
CPT/HCPCS: 78452; 93016; 93018; 93017; J2785

== ENCOUNTER 2023-07-27 08:29 | Outpatient (CLI) | payer MEDICARE, BC, SELFPAY ==
--- NOTE | 2023-07-27 08:15 | RT.EKG_ITS ---
APPROVED REPORT Exam: Resting ECG Reason for Exam: NH, afib Patient Location: O HR:82 bpm ECG Measurements Heart Rate 82 AXIS OH 199 P -18 QRSd 78 QRS 0 QT 381 T 119 QTc 445 Conclusion Sinus rhythm...normal P axis, V-rate 50- 99 Probable left atrial enlargement...P >50mS, <-0.10mV V1 Abnormal R-wave progression, early transition...QRS area>0 in V2 LVH with secondary repol abnrm...multiple LVH criteria Baseline wander in lead(s) II,III,aVL,aVF,V1,V2,V3,V4,V5,V6
== END 2023-07-27 08:30 | disposition home or self-care (01) ==
LOC: DI.CARD 08:30
PROVIDERS: PCP Nurse Practitioner Family; Visit Provider Internal Medicine Cardiovascular Disease
DX: I21.4 Non-ST elevation (NSTEMI) myocardial infarction (principal); I48.91 Unspecified atrial fibrillation
CPT/HCPCS: 93010

== ENCOUNTER → 2023-07-27 11:15 | Outpatient (BNVA) | payer MEDICARE, BC, SELFPAY | PROVIDERS: PCP Nurse Practitioner Family; Referring Provider Nurse Practitioner Family; Visit Provider Internal Medicine Cardiovascular Disease ==

== ENCOUNTER 2023-07-27 17:32 | Outpatient (CLI) | payer MEDICARE, BC, SELFPAY ==
[2023-07-27 12:40] LABS: HCT 35.5 % (40.0-50.0); HGB 12.2 g/dL (13.5-17.5); MCH 30.5 pg (27.0-33.0); MCHC 34.4 % (32.0-36.0); MCV 89 fL (80-95); MPV 8.6 fL (8.0-11.0); Platelet Count 184 10^3/uL (130-400); RDW 13.2 % (11.8-14.1); RDW-SD 43.5 fL; WBC 8.01 10^3/uL (4.4-10.8)
[2023-07-27 12:53] LABS: PTT Activated 28.8 sec (23.6-32.8); Prothrombin Time 10.5 sec (9.1-11.1)
[2023-07-27 13:12] LABS: Anion Gap 8.2 mmol/L (3-11); BUN 20 mg/dL (7-18); CO2 26.8 mmol/L (21.0-32.0); CREATININE 1.3 mg/dL (0.70-1.30); Calcium 9.1 mg/dL (8.5-10.1); Chloride 105 mmol/L (98-107); Estimated GFR 60.59 (mL/min/1.73m2); Glucose 96 mg/dL (74-106); Potassium 3.9 mmol/L (3.5-5.1); Sodium 140 mmol/L (136-145)
== END 2023-07-27 17:33 | disposition home or self-care (01) ==
LOC: LBO 17:33
PROVIDERS: PCP Nurse Practitioner Family; Visit Provider Internal Medicine Cardiovascular Disease
DX: I25.10 Atherosclerotic heart disease of native coronary artery without angina pectoris (principal); I48.91 Unspecified atrial fibrillation; I21.4 Non-ST elevation (NSTEMI) myocardial infarction
CPT/HCPCS: 36415; 80048; 85027; 93005; 99214; 85610; 85730

== ENCOUNTER 2023-07-29 10:21 | Outpatient (CLI) | payer MEDICARE, BC, SELFPAY ==
--- NOTE | 2023-07-29 10:15 | DI.RAD_ITS ---
Exam(s) XR ELBOW LT COMPLETE EXAM: XR ELBOW LT COMPLETE CLINICAL HISTORY: LEFT ELBOW FX. TECHNIQUE: 2D digital imaging was performed of the left elbow. Three images were obtained. AP, lat eral and oblique views were obtained. COMPARISON: DX XR ELBOW 3 VIEWS LEFT (GENERIC) from 06/17/2023 CR XR ELBOW LT COMPLETE from 07/01/2023 FINDINGS: BONES: There has been no change in alignment of the supracondylar fracture of the distal humerus. Th ere is increased callus formation about the fracture since the prior examination. The fracture line is still visualized. No new fracture is seen. Distal ORIF of the humerus is seen. No bony destruct dusty lesion is seen. JOINTS: The elbow is normally aligned. There is a joint effusion. SOFT TISSUE: Normal. IMPRESSION: Stable alignment of the distal left humeral fracture. DATA REPOSITORY: RADIATION DOSE DELIVERED:
== END 2023-07-29 10:22 | disposition home or self-care (01) ==
LOC: DIORS 10:21
PROVIDERS: PCP Nurse Practitioner Family; Referring Provider Nurse Practitioner Family; Visit Provider Physician Assistant
DX: S42.412D Displaced simple supracondylar fracture without intercondylar fracture of left humerus, subsequent encounter for fracture with routine healing (principal); X58.XXXD Exposure to other specified factors, subsequent encounter
CPT/HCPCS: 99213; 73080

== ENCOUNTER 2023-08-11 07:50 | Outpatient (CLI) | payer MEDICARE, BC, SELFPAY ==
--- NOTE | 2023-08-11 07:45 | RT.EKG_ITS ---
APPROVED REPORT Exam: Resting ECG Reason for Exam: svt Patient Location: O HR:83 bpm ECG Measurements Heart Rate 83 AXIS OR 169 P 10 QRSd 86 QRS 2 QT 394 T 109 QTc 463 Conclusion Sinus rhythm...normal P axis, V-rate 50- 99 Anterior infarct, old...Q >40mS, abnormal ST-T, V2-V5
== END 2023-08-11 07:51 | disposition home or self-care (01) ==
LOC: DI.CARD 07:50
PROVIDERS: PCP Nurse Practitioner Family; Visit Provider Internal Medicine Cardiovascular Disease
DX: I21.4 Non-ST elevation (NSTEMI) myocardial infarction (principal); Z86.79 Personal history of other diseases of the circulatory system
CPT/HCPCS: 93010

== ENCOUNTER → 2023-08-11 08:24 | Outpatient (BNVA) | payer MEDICARE, BC, SELFPAY | PROVIDERS: PCP Nurse Practitioner Family; Visit Provider Internal Medicine Cardiovascular Disease | DX: I25.2 Old myocardial infarction (principal); Z95.818 Presence of other cardiac implants and grafts; I48.0 Paroxysmal atrial fibrillation; I10 Essential (primary) hypertension; F41.9 Anxiety disorder, unspecified; Z86.79 Personal history of other diseases of the circulatory system | CPT/HCPCS: 93005; 99214 ==

== ENCOUNTER 2023-09-17 10:36 | Emergency (ER) | payer MEDICARE, BC, SELFPAY ==
[2023-09-17] VITALS (25 sets, daily range): BP systolic 89–161; BP diastolic 62–126; PULSE 78–88; RESP 16–30; TEMP 36.9; O2SAT 92–99
--- NOTE | 2023-09-17 10:30 | RT.EKG_ITS ---
APPROVED REPORT Exam: Resting ECG Reason for Exam: Ticker checked Patient Location: E HR:98 bpm ECG Measurements Heart Rate 98 AXIS PA 156 P 40 QRSd 88 QRS 10 QT 393 T 57 QTc 503 Conclusion Ventricular-paced complexes...other complexes also detected Borderline ST elevation, lateral leads...ST >0.06mV, I aVL V5 V6 Prolonged QT interval...QTc >500mS Physician: no stemi
--- NOTE | 2023-09-17 10:52 | ED.GENADUL_ITS ---
Discharge Plan Disposition Patient Disposition: Home Condition: Good Discharge Details Clinical Impression: Disruption of closure of sternum or sternotomy, Nausea & vomiting, Dehydration Primary Care Provider: Fred Serrano ED Provider: Otoniel Vásquez Home Meds and New Rx's Prescriptions: New cephalexin 500 mg capsule 500 mg PO QID 7 Days Qty: 28 0RF ondansetron 4 mg tablet,disintegrating 4 mg PO Q8H Qty: 20 0RF No Action lisinopril 20 mg tablet 10 mg PO DAILY Patient Comments: per [facility] Cardiology. -hb changed to 10mg aspirin 325 mg tablet 81 mg PO DAILY oxybutynin chloride 10 mg tablet extended release 24hr 10 mg PO DAILY Qty: 90 3RF quetiapine 25 mg tablet 25 mg PO QHS Qty: 180 3RF Rx Instructions: May increase to 50 mg po HS Eliquis 5 mg tablet 5 mg PO BID Qty: 180 3RF Hold Instructions: Pt Stopped/Never Started allopurinol 300 mg tablet 300 mg PO DAILY Qty: 90 3RF omeprazole 40 mg capsule,delayed release(DR/EC) 40 mg PO HS Qty: 90 4RF lamotrigine 100 mg tablet 100 mg PO BID Qty: 180 3RF sertraline [Zoloft] 100 mg tablet 200 mg PO DAILY Qty: 180 3RF atorvastatin 40 mg tablet 40 mg PO QHS verapamil 120 mg capsule,ext rel. pellets 24 hr 120 mg PO BID Hold Instructions: Pt Stopped/Never Started insulin glargine [Basaglar KwikPen U-100 Insulin] 100 unit/mL (3 mL) insulin pen See Rx Instructions .ROUTE .COMPLEX Qty: 15 5RF Dose Instruction: INJECT 25 UNITS SUBCUTANEOUSLY EVERY EVENING Rx Instructions: INJECT 25 UNITS SUBCUTANEOUSLY EVERY EVENING metoprolol tartrate 50 mg tablet 75 mg PO BID Patient Comments: TAKE ONE AND ONE-HALF TABLETS BY MOUTH TWICE A DAY Discharge Instructions Instructions: Dehydration (ED), Acute Nausea and Vomiting (ED) Additional Instructions: At this time your laboratory workup has improved after being rehydrated. As we discussed together your sternum has unfortunately potentially during some of your vomiting episodes. We discussed this with your cardiothoracic surgeon, and they would like to follow-up with you immediately next week in the morning. They will be contacting you for your appointment time. In the meantime please take the antibiotic as prescribed. Has been sent to your pharmacy on file. Please take the nausea pills as needed for any nausea to prevent vomiting. Please make sure that you are hugging your cardiac pillow as often as possible, and make sure you are aggressively holding it whenever you are vomiting to prevent any stress or strain on your sternum. The cardiothoracic surgeon recommends that you immediately return to an emergency department if you develop any drainage from your surgical site or any worsening pain or shortness of breath. If you notice any worsening of your symptoms, or any new symptoms such as vomiting, diarrhea, fever, chills, shortness of breath, chest pain, numbness, weakness, or fainting , please return immediately to the emergency department for reevaluation. Please follow up with your primary care provider as soon as possible for reassessment and reevaluation. As always, it was a pleasure participating in your medical care today. Referrals: Fred Serrano NP [Primary Care Provider] - Medical Decision Making This is a very pleasant 67-year-old male with a past medical history of A-fib ablation on 06/08/2023, which led to subsequent bilateral hemothoraces and NSTEMI. Mild heart failure with a left ventricular ejection fraction of 30%, notable coronary artery disease with CABG performed 7 days ago at [facility], type 2 diabetes, gout, hypertension, who presents today for evaluation of nausea and vomiting and diarrhea. Patient states that he was just discharged from [facility] a few days ago, he had his CABG 8 days ago. On Wednesday which was 3 days ago he developed lower abdominal pain, nausea, vomiting, diarrhea. No hematochezia, melena, or hematemesis. He denied any chest pain or shortness of breath. He states that he has been taking his medications as directed. Currently states that the abdominal pain has resolved, with involvement diarrhea that he has been having he is concerned for dehydration. He does not currently take any antibiotics. He otherwise feels well. No other complaints at this time. Patient does note that he had a small amount of blood on his shirt a day or so ago with the vomiting but he did not know where it came from. No leaking or drainage from his sternotomy site since then. Exam demonstrates a well-appearing male, dry mucous membranes, sternotomy scars are clean dry and intact. Patient appears well but mildly dehydrated, vital signs stable but he is up with propranolol. Infectious diarrhea is on the differential, potentially from perioperative antibiotics however viral gastroenteritis may certainly be the cause. Obstruction versus postoperative pathology is also of concern, including esophageal trauma which is less likely given current exam. Will get CT imaging of the chest abdomen and pelvis secondary to recent surgery, monitor closely and reassess. 2:04 PM Laboratory workup shows an elevated white count of 23, moderate left shift, but no bands. Hemoglobin 10.3, platelet 442, lactate elevated at 4. Electrolytes normal. Creatinine slightly higher than normal at 2.1, GFR 34, patient still making urine. Troponin normal. proBNP 8700. However at this time there is no evidence of gross fluid overload on exam clinically. Patient continues to feel well. He has no episodes of vomiting here. No more diarrhea. He has no tachycardia or fever here. He continues to feel well. CT scan shows evidence of a sternotomy, but unfortunately there appears to be no connection for the sternal borders themselves, with a notable gap. Concern for sternal rupture secondary to vomiting. There is a small pericardial effusion around 1 cm, as well as mild pleural effusions bilaterally. Concern for sternotomy rupture postoperatively secondary to the vomiting. I did contact cardiothoracic's at [facility] and discussed the case with the patient's cardiothoracic surgeon who performed the procedure Dr. Velazco. He reviewed the images personally, we reviewed all labs including the elevated white count and lactate. I also discussed the current clinical disposition of the patient which demonstrates no tachycardia, hypothermia, hypotension, with no clinical pain, chest pain, chills, or shortness of breath. No clinical evidence to suggest pericardial tamponade clinically whatsoever. Discussed the current clinical status, laboratory workup, and imaging findings with surgery. They recommend close follow-up at [facility] on Wednesday which he states he will be contacting his office to set up. He did recommend that if the patient did develop additional drainage from the sternum then he should start antibiotics. I discussed with him just starting prophylactic antibiotics now and he agrees. Will give Ancef here and Keflex for home use as a precaution. Surgery does recommend outpatient follow-up otherwise. At this time the patient does demonstrate hemodynamic stability and shows no evidence of septic shock or severe sepsis. We will repeat the lactate after the 750 cc fluid bolus and reassess for expected outpatient management. 2:42 PM Repeat lactate has returned and has normalized at 1.2. Patient continues to feel well. Patient's vital signs remained stable. No hypoxemia, tachycardia, or other vital sign abnormality at this time. Patient stable for discharge. I had a long discussion with the patient and his who is at bedside discussing the critical importance for prompt an immediate return if he develops any shortness of breath chest pain or worsening of his symptoms. Will give Zofran and Keflex for home use. Discussed red flags for which to return. I have exten sively reviewed the treatment plan and discharge instructions with the patient and their family. I have addressed all patient concerns at this time. The patient and family was made aware of what symptoms to monitor for that would warrant a return to the emergency department. Discussed the plan with the patient and family, they demonstrate verbal understanding and agreement with our assessment and plan at this time. The documentation in this chart was dictated using Rec[employer] dictation software. Please excuse any dictation errors. FINDINGS: CHEST: LUNGS: There has been recent sternotomy. However, there is diastasis of the sternotomy and fluid between the components of the sternum and extending into the supraclavicular notch. Small hematoma in the anterior mediastinum. Also some gas within the retrosternal mediastinum and pre cardiac fat. There is also a pericardial effusion now evident with thickness of 11 mm. There are symmetrical moderate size bilateral non- loculated pleural effusions. There is some ground-glass infiltrate and volume loss in the basal segments both lower lobes. There is no infiltrate evident in the left upper lobe and lingular segment of the left lung nor in the superior segment of the left lower lobe. There is no infiltrate evident in the right upper lobe and right middle lobe. There is, however, a small nodule in the lateral aspect of the right middle lobe which measures 6 mm. Difficult to compared to previous as the prior CT scan was of the abdomen only and not reach into the chest to this level. MEDIASTINUM: Multiple clips around the heart. No obvious hilar nor mediastinal adenopathy. CARDIAC: Heart size upper normal. 11 millimeter thick pericardial effusion. Coronary artery calcification. Diameter of the ascending thoracic aorta is enlarged, measuring 4.4 cm. Diameter of the mid aortic arch is 3 cm. Diameter of the proximal descending thoracic aorta is 3 cm. Cannot assess for dissection without IV contrast OSSEOUS: No significant osseous lesions.There is a subacute appearing fracture of the posterolateral aspect of the left 11th rib. Also lateral aspect of left 10th rib. These fractures were evident on prior CT scan of January 2023.. ABDOMEN: There is no ascites. LIVER: There are no obvious focal hepatic lesions evident of this noninfused study. GALLBLADDER/BILIARY: Gallstones are again noted. Gallbladder wall does not appear edematous. CBD is not dilated. PANCREAS: No evidence of obvious pancreatic mass nor dilatation of the pancreatic duct. SPLEEN: Spleen size upper normal. ADRENALS: Small hypodense nodule in the medial limb of the right adrenal gland is unchanged, measuring 1.0 x 1.1 cm. Some mild thickening of the genu of the left adrenal gland is also unchanged. KIDNEYS: Right kidney unremarkable. The previously described finding in the superior aspect of the left kidney has decreased in size, presently measuring 4.3 cm wide by 3.6 cm AP by 3.5 cm cephalocaudal. Suspect that this is postsurgical. No new renal findings.. No hydronephrosis. No hydroureter. ABDOMINAL AORTA: Abdominal aorta is not enlarged. LYMPH NODES: There is no retroperitoneal nor para-aortic adenopathy. ABDOMINAL WALL/GI: Again noted is evidence of previous right hemicolectomy. There is no evidence of bowel obstruction nor free intraperitoneal air. The sigmoid is long and redundant and reaches to the right side contacting the right hepatic lobe be 4 descending back into the left side of the pelvis. There is also intraluminal gas trapped up at the sigmoid loop subjacent to the liver a nd the sigmoid is dilated to 4.5 cm at this level. The wall itself is not edematous. There is no evidence of significant sigmoid diverticular disease. The colon above this level is not dilated. There is no evidence of small-bowel obstruction. PELVIS: LYMPH NODES: There is no intrapelvic nor inguinal adenopathy. GI: Appendix surgically absent-prior right hemicolectomy.No evidence of sigmoid diverticulitis. URINARY BLADDER: No calculi nor obvious masses evident REPRODUCTIVE: Prostate enlarged. No obturator adenopathy. Seminal vesicles unremarkable. OSSEOUS: Somewhat pagetoid appearance of the osseous left hemipelvis. No lytic osseous lesions evident. No obvious blastic lesions. Sclerotic bone islands are noted in the left hemipelvis. Multilevel chronic advanced disc space narrowing in the lumbar spine. IMPRESSION: 1. There is evidence of recent sternotomy-CABG. These sternotomy is open with fluid interposed between the sternotomy. There is also a pericardial effusion measuring 11-12 mm thickness. Descending thoracic aorta is dilated (4.4 cm). Cannot assess for dissection without IV contrast. 2. Bilateral symmetrical moderate size pleural effusions. Some increased markings in both lung bases. Small solitary 6 millimeter calcified nodule in the right lung. 3. Cholelithiasis. No obvious acute cholecystitis. CBD not dilated. 4. Previous right hemicolectomy. No bowel obstruction but the sigmoid is noted to be redundant, reaching the undersurface of the liver and there is trapped air in the uppermost aspect of this sigmoid loop which is dilated to 4 cm diameter there is no bowel wall edema at this level and there is no evidence of diverticular disease in the sigmoid nor dilatation of the colon above this level. There is also no evidence of small-bowel obstruction, free intraperitoneal air, nor abscess. 5. There is a 4.3 by 3.6 x 3.5 cm fat containing density in the region of the upper pole of the left kidney which has decreased in size from the prior study. I suspect this is related to prior renal surgery, possibly percutaneous. No new additional renal masses. No calculi. No hydronephrosis on either side. 6. Other findings as above. HPI General Date/Time Provider Initiated Documentation: 09/17/23 10:37 . HPI Narrative: This is a very pleasant 67-year-old male with a past medical history of A-fib ablation on 06/08/2023, which led to subsequent bilateral hemothoraces and NSTEMI. Mild heart failure with a left ventricular ejection fraction of 30%, notable coronary artery disease with CABG performed 7 days ago at [facility], type 2 diabetes, gout, hypertension, who presents today for evalua tion of nausea and vomiting and diarrhea. Patient states that he was just discharged from [facility] a few days ago, he had his CABG 8 days ago. On Wednesday which was 3 days ago he developed lower abdominal pain, nausea, vomiting, diarrhea. No hematochezia, melena, or hematemesis. He denied any chest pain or shortness of breath. He states that he has been taking his medications as directed. Currently states that the abdominal pain has resolved, with involvement diarrhea that he has been having he is concerned for dehydration. He does not currently take any antibiotics. He otherwise feels well. No other complaints at this time. Related Data Home Medications Medication Instructions Recorded Confirmed lamotrigine 100 mg tablet 100 mg PO BID #180 tabs 08/03/22 09/17/23 allopurinol 300 mg tablet 300 mg PO DAILY #90 tabs 10/21/22 09/17/23 omeprazole 40 mg capsule,delayed 40 mg PO HS #90 caps 10/21/22 09/17/23 release sertraline 100 mg tablet (Zoloft) 200 mg (2 x 100 mg) PO DAILY #180 02/19/23 09/17/23 tabs atorvastatin 40 mg tablet 40 mg PO QHS 06/22/23 09/17/23 verapamil 120 mg 24 hr 120 mg PO BID 06/22/23 09/17/23 capsule,extended release apixaban 5 mg tablet (Eliquis) 5 mg PO BID #180 tabs 06/23/23 09/17/23 quetiapine 25 mg tablet 25 mg PO QHS #180 tabs 06/23/23 09/17/23 insulin glargine 100 unit/mL (3 See Rx Instructions .Route 07/20/23 09/17/23 mL) subcutaneous pen (Basaglar .COMPLEX #15 mL KwikPen U-100 Insulin) oxybutynin chloride 10 mg 10 mg PO DAILY #90 tabs 07/27/23 09/17/23 tablet,extended release 24 hr aspirin 325 mg tablet 81 mg PO DAILY 08/30/23 09/17/23 lisinopril 20 mg tablet 10 mg PO DAILY 08/30/23 09/17/23 cephalexin 500 mg capsule 500 mg PO QID 7 days #28 caps 09/17/23 metoprolol tartrate 50 mg tablet 75 mg PO BID 09/17/23 09/17/23 ondansetron 4 mg disintegrating 4 mg PO Q8H #20 tabs 09/17/23 tablet Previous Rx's Medication Instructions Recorded lamotrigine 100 mg tablet 100 mg PO BID #180 tabs 08/03/22 allopurinol 300 mg tablet 300 mg PO DAILY #90 tabs 10/21/22 omeprazole 40 mg capsule,delayed 40 mg PO HS #90 caps 10/21/22 release sertraline 100 mg tablet (Zoloft) 200 mg (2 x 100 mg) PO DAILY #180 02/19/23 tabs apixaban 5 mg tablet (Eliquis) 5 mg PO BID #180 tabs 06/23/23 quetiapine 25 mg tablet 25 mg PO QHS #180 tabs 06/23/23 insulin glargine 100 unit/mL (3 See Rx Instructions .Route 07/20/23 mL) subcutaneous pen (Basaglar .COMPLEX #15 mL KwikPen U-100 Insulin) oxybutynin chloride 10 mg 10 mg PO DAILY #90 tabs 07/27/23 tablet,extended release 24 hr cephalexin 500 mg capsule 500 mg PO QID 7 days #28 caps 09/17/23 ondansetron 4 mg disintegrating 4 mg PO Q8H #20 tabs 09/17/23 tablet Allergies Allergy/AdvReac Type Severity Reaction Status Date / Time No Known Allergies Allergy Verified 08/30/23 11:49 Review of Systems All systems reviewed & are unremarkable except as noted in HPI and below PFSH All Active Problems (Updated 09/17/23 @ 14:47 by Otoniel Vásquez DO) Dehydration (Acute) Nausea & vomiting (Acute) Disruption of closure of sternum or sternotomy (Acute) Preprocedural cardiovascular examination (Acute) NSTEMI (non-ST elevated myocardial infarction) (Acute) Supracondylar fracture of humerus (Acute 06/02/23) Panic attack (Acute) Anemia (Chronic) Hemothorax (Acute) Microscopic hematuria (Acute) Paroxysmal A-fib (Acute) Lower urinary tract symptoms (LUTS) (Acute) Atrial fibrillation (Chronic) Nocturia (Acute) Enlarged testicle (Acute) left Testicular pain, right (Acute) Tubular adenoma of colon (Acute) Hyperplastic colon polyp (Acute) Implantable loop recorder present (Acute) Hematuria (Acute) Renal mass (Acute) Lumbar radiculopathy (Acute) Hip pain, right (Acute) Irregular heart beat (Acute) 2021- controlled on verapamil 06/2020- Seen [facility]- [facility] patch stress echo schedules 07/2020-monitor study remarkable for sinus ryhtm Left ankle pain (Chronic) L ankle fused x 2 Balance disorder (Acute) Ulcerative colitis (Acute 02/16/13) 08/19 COLONOSCOPY: ONE TUBULOVILLOUS ADENOMA AND ONE HYPERPLASTIC POLYP. 10/20 COLONOSCOPY: ULCERATIVE COLITIS AND LARGE CECAL DYSPLASIC LESION; DR. TREJO RECOMM Spinal stenosis (Acute) 2021- lower right back pain Sleep disorder (Acute 08/08/14) insomnia, cannibus with good effect Primary malignant neoplasm of colon (Acute 11/10/09) Adenocarcinoma --terminal ileum and ascending colon; cecum; Right Hemicolectomy 11/25/09 Hypertension (Acute) Gout (Chronic 05/31/13) controlled on allopurinol Gastroesophageal reflux disease with esophagitis (Acute 02/16/13) Diabetic polyneuropathy associated with type 2 diabetes mellitus (Acute 12/01/17) Anxiety (Acute 02/16/13) Medical History H/O supraventricular tachycardia Encounter for loop recorder check Med[employer] LINQ [id number] 09/19/2020 Status post placement of implantable loop recorder Medtronic Reveal LINQ LNQ11 [id number] 09/17/2020 Balance disorder Pt. walks with a cane, he broke his ankle and never healed correctly, and he states he has some vertigo History of atrial fibrillation pt. states he had a-fib and an ablation 2013 Back pain of lumbar region with sciatica (06/08/16) Fracture of left humerus (04/11/14) Nonunion of subtalar arthrodesis Original fusion 02/23/2018 Supraventricular tachycardia (02/16/13) radioabation 09/2014 Pt. states he wears a heart monitor called a PVB (PVC). Sessile colonic polyp (03/15/17) Sciatica of left side (12/01/17) Hyperlipidemia (02/16/13) History of tobacco use Delayed surgical wound healing (04/22/18) De Quervain's tenosynovitis, right (10/15/17) resolved- surgery 06/2020 Cholelithiasis identified during ultrasound, non- symptomatic UC (ulcerative colitis) 2009 - UC w/ large cecal dysplastic lesion HTN (hypertension) SVT (supraventricular tachycardia) 2014 radioablation Anxiety Primary malignant neoplasm of colon 2009 right hemicolectomy GERD with esophagitis Surgical History History of kidney surgery (~05/08/22) [facility] for removal of 5 lesions Carpal tunnel syndrome of right wrist Status post ECTR DOS: 06/04/2020 Status post ankle fusion (02/21/19) Status post ankle fusion that resulted in failure Status post subtalar and tibiotalar fusion using IM nail DOS: 02/21/2019 Dr. 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 BRANTLEY;right EGD - [facility] (03/15/17) Colonoscopy - [facility] (03/15/17) 06/2022 Family History Mother Diabetes Essential hypertension Dementia Heart disease Stroke Sister Diabetes Heart disease Neoplasm Brother Hyperlipidemia Social History Smoking/Tobacco Use Status: Former Tobacco Use Quit Date: 10/11/89 Smoking risk assessment performed?: Yes Alcohol Intake: never Drug use: Daily Substance use type: marijuana Housing: house Current gender identity: male Do you feel safe at home: Yes Do you feel safe in your relationship?: Yes Exam Narrative Exam Narrative: 1.Const: Well-nourished, Well-developed, appearing stated age 2.Eyes: PERRL, no conjunctival injection, and symmetrical lids. 3.ENT: Atraumatic external nose and ears. Dry MM. Neck: Symmetric, trachea midline, No thyromegaly. 4.CVS: +S1/S2, No murmurs or gallops. Peripheral pulses 2+ and equal in all extremities. Brisk capillary refill in all extremities. CABG scar is clean dry and intact. Upper abdominal scars are clean dry and intact. No subcutaneous crepitus in the abdomen or chest. 5.RESP: Unlabored respiratory effort. Clear to auscultation bilaterally. No wheezes rales or rhonchi 6.GI: Soft, Nontender/Nondistended, No hepatosplenomegaly. No guarding or rebound. Mild bruising in the left lower abdomen, surgical incision sites are clean dry and intact. 7.MSK: Normocephalic/Atraumatic, Extremities w/o deformity or ttp No cyanosis or clubbing, Normal movement of all extremities. 8.Skin: Warm, Dry. No rashes or lesions. 9.Neuro: electorate officer II-XII grossly intact. Sensation grossly intact, no focal neurologic deficits. 10.Psych: (AAO) x3. Appropriate mood and affect
[2023-09-17 11:04] LABS: Abs Immature Grans 0.74 10^3/uL (0.0-0.06); Basophils % 0.4; Eosinophils % 0.1; HCT 31.1 % (40.0-50.0); HGB 10.3 g/dL (13.5-17.5); Immature Grans % 3.1; Lymphocytes % 7.8; MCH 29.1 pg (27.0-33.0); MCHC 33.1 % (32.0-36.0); MCV 88 fL (80-95); MPV 9.6 fL (8.0-11.0); Monocytes % 7.1; Neutrophils % 81.5; Platelet Count 442 10^3/uL (130-400); RBC 3.54 10^6/uL (4.36-5.78); RDW 14.1 % (11.8-14.1); RDW-SD 44.8 fL; WBC 23.94 10^3/uL (4.4-10.8)
[2023-09-17 11:07] LABS: Absolute Eosinophil Count 0.02 10^3/uL (0.0-0.7); Absolute Lymphocyte Count 1.87 10^3/uL (1.2-3.4); Absolute Neutrophil Count 19.51 10^3/uL (1.2-6.7)
[2023-09-17] MEDS: Normal Saline 500 ML IV ×2 (11:10→13:29)
[2023-09-17 11:16] LABS: INR 1.2 (0.9-1.1); PTT Activated 27.9 sec (23.6-32.8); Prothrombin Time 11.7 sec (9.1-11.1)
[2023-09-17 11:17] LABS: Diff Comment Diff Reviewed; RBC Morphology Normal
[2023-09-17] MEDS: Ondansetron 4 MG/2 ML VIAL IVP (11:19)
[2023-09-17] MEDS: Lidocaine 2% Viscous 1 ML Solution 15 ML PO (11:19)
[2023-09-17] MEDS: Mylanta Suspension 30 ML CUP PO (11:20)
[2023-09-17 11:26] LABS: ALT 30 U/L (16-63); AST 37 U/L (15-37); Albumin 2.8 g/dL (3.4-5.0); Alkaline Phosphatase 143 U/L (46-116); Anion Gap 11.4 mmol/L (3-11); BUN 31 mg/dL (7-18); Bilirubin, Total 0.8 mg/dL (0.2-1.0); CO2 23.6 mmol/L (21.0-32.0); CREATININE 2.1 mg/dL (0.70-1.30); Calcium 8.4 mg/dL (8.5-10.1); Chloride 99 mmol/L (98-107); Estimated GFR 34.08 (mL/min/1.73m2); Glucose 209 mg/dL (74-106); NT-proBNP 8771 pg/mL (<300); Potassium 3.8 mmol/L (3.5-5.1); Sodium 134 mmol/L (136-145); Total Protein 7.1 g/dL (6.4-8.2)
[2023-09-17 11:29] LABS: Troponin I 66 ng/L (<or=60)
--- NOTE | 2023-09-17 12:02 | DI.CT_ITS ---
Exam(s) CT CHEST/ABD/PEL WO EXAM: CT CHEST/ABD/PEL WO CLINICAL HISTORY: recent OHS, vomiting, lower abdominal pain. TECHNIQUE: Imaging Protocol: Axial computed tomography images with coronal and sagittal reformatted images were created and reviewed CONTRAST MATERIAL: Intravenous: none Oral: None COMPARISON: CT CT ABDOMEN PELVIS WO/W from 01/20/2023 FINDINGS: CHEST: LUNGS: There has been recent sternotomy. However, there is diastasis of the sternotomy and fluid bet ween the components of the sternum and extending into the supraclavicular notch. Small hematoma in t he anterior mediastinum. Also some gas within the retrosternal mediastinum and pre cardiac fat. The re is also a pericardial effusion now evident with thickness of 11 mm. There are symmetrical moderate size bilateral non- loculated pleural effusions. There is some ground -glass infiltrate and volume loss in the basal segments both lower lobes. There is no infiltrate evident in the left upper lobe and lingular segment of the left lung nor in th e superior segment of the left lower lobe. There is no infiltrate evident in the right upper lobe an d right middle lobe. There is, however, a small nodule in the lateral aspect of the right middle lob e which measures 6 mm. Difficult to compared to previous as the prior CT scan was of the abdomen onl y and not reach into the chest to this level. MEDIASTINUM: Multiple clips around the heart. No obvious hilar nor mediastinal adenopathy. CARDIAC: Heart size upper normal. 11 millimeter thick pericardial effusion. Coronary artery calcifi cation. Diameter of the ascending thoracic aorta is enlarged, measuring 4.4 cm. Diameter of the mid aortic arch is 3 cm. Diameter of the proximal descending thoracic aorta is 3 cm. Cannot assess for dissection without IV contrast OSSEOUS: No significant osseous lesions.There is a subacute appearing fracture of the posterolateral aspect of the left 11th rib. Also lateral aspect of left 10th rib. These fractures were evident on prior CT scan of January 2023.. ABDOMEN: There is no ascites. LIVER: There are no obvious focal hepatic lesions evident of this noninfused study. GALLBLADDER/BILIARY: Gallstones are again noted. Gallbladder wall does not appear edematous. CBD is not dilated. PANCREAS: No evidence of obvious pancreatic mass nor dilatation of the pancreatic duct. SPLEEN: Spleen size upper normal. ADRENALS: Small hypodense nodule in the medial limb of the right adrenal gland is unchanged, measurin g 1.0 x 1.1 cm. Some mild thickening of the genu of the left adrenal gland is also unchanged. KIDNEYS: Right kidney unremarkable. The previously described finding in the superior aspect of the l eft kidney has decreased in size, presently measuring 4.3 cm wide by 3.6 cm AP by 3.5 cm cephalocauda l. Suspect that this is postsurgical. No new renal findings.. No hydronephrosis. No hydroureter. ABDOMINAL AORTA: Abdominal aorta is not enlarged. LYMPH NODES: There is no retroperitoneal nor para-aortic adenopathy. ABDOMINAL WALL/GI: Again noted is evidence of previous right hemicolectomy. There is no evidence of bowel obstruction nor free intraperitoneal air. The sigmoid is long and redundant and reaches to the right side contacting the right hepatic lobe be 4 descending back into the left side of the pelvis. There is also intraluminal gas trapped up at the sigmoid loop subjacent to the liver and the sigmoid is dilated to 4.5 cm at this level. The wall it self is not edematous. There is no evidence of significant sigmoid diverticular disease. The colon above this level is not dilated. There is no evidence of small-bowel obstruction. PELVIS: LYMPH NODES: There is no intrapelvic nor inguinal adenopathy. GI: Appendix surgically absent-prior right hemicolectomy.No evidence of sigmoid diverticulitis. URINARY BLADDER: No calculi nor obvious masses evident REPRODUCTIVE: Prostate enlarged. No obturator adenopathy. Seminal vesicles unremarkable. OSSEOUS: Somewhat pagetoid appearance of the osseous left hemipelvis. No lytic osseous lesions evide nt. No obvious blastic lesions. Sclerotic bone islands are noted in the left hemipelvis. Multileve l chronic advanced disc space narrowing in the lumbar spine. IMPRESSION: 1. There is evidence of recent sternotomy-CABG. These sternotomy is open with fluid interposed betwe en the sternotomy. There is also a pericardial effusion measuring 11-12 mm thickness. Descending th oracic aorta is dilated (4.4 cm). Cannot assess for dissection without IV contrast. 2. Bilateral symmetrical moderate size pleural effusions. Some increased markings in both lung base s. Small solitary 6 millimeter calcified nodule in the right lung. 3. Cholelithiasis. No obvious acute cholecystitis. CBD not dilated. 4. Previous right hemicolectomy. No bowel obstruction but the sigmoid is noted to be redundant, denilson jeovany the undersurface of the liver and there is trapped air in the uppermost aspect of this sigmoid loop which is dilated to 4 cm diameter there is no bowel wall edema at this level and there is no henry dence of diverticular disease in the sigmoid nor dilatation of the colon above this level. There is also no evidence of small-bowel obstruction, free intraperitoneal air, nor abscess. 5. There is a 4.3 by 3.6 x 3.5 cm fat containing density in the region of the upper pole of the left kidney which has decreased in size from the prior study. I suspect this is related to prior renal s urgery, possibly percutaneous. No new additional renal masses. No calculi. No hydronephrosis on ei ther side. 6. Other findings as above. Discussed by phone with ER physician RADIATION DOSE DELIVERED: Total DLP DATA REPOSITORY: All CT scans at this facility are submitted to the National Radiology Data Registry (NRDR) Dose Index Registry (DIR) with the [employer] (ACR). RADIATION OPTIMIZATION: All CT scans at this facility use at least one of these dose optimization te chniques: automated exposure control; mA and/or kV adjustment per patient size (includes targeted exa ms where dose is matched to clinical indication); or iterative reconstruction.
[2023-09-17] MEDS: ceFAZolin 2 GM/50 ML BAG IVPB (14:21)
[2023-09-17 14:34] LABS: Lactate 1.2 mmol/L (0.6-1.4)
[2023-09-17 15:07] LABS: Troponin I 58 ng/L (<or=60)
== END 2023-09-17 14:59 | disposition home or self-care (01) ==
PROVIDERS: Emergency Provider Student in an Organized Health Care Education/Training Program; PCP Nurse Practitioner Family
DX: R11.2 Nausea with vomiting, unspecified (principal); E86.0 Dehydration; T81.31XA Disruption of external operation (surgical) wound, not elsewhere classified, initial encounter; I48.91 Unspecified atrial fibrillation; R94.31 Abnormal electrocardiogram [ECG] [EKG]; I25.10 Atherosclerotic heart disease of native coronary artery without angina pectoris; I25.2 Old myocardial infarction; I10 Essential (primary) hypertension; E78.5 Hyperlipidemia, unspecified; Z79.01 Long term (current) use of anticoagulants; Z79.4 Long term (current) use of insulin; E11.9 Type 2 diabetes mellitus without complications; Z95.1 Presence of aortocoronary bypass graft
CPT/HCPCS: 36415; 71250; 80053; 93005; 96361; 96365; 96375; 99284; 74176; 83605; 83880; 84484; 85025; 85610; 85730; 93010; J0690; J2405

== ENCOUNTER → 2023-11-18 13:50 | Outpatient (CLI) | payer MEDICARE, BC, SELFPAY ==
--- NOTE | 2023-11-18 13:45 | DI.RAD_ITS ---
Exam(s) XR CHEST 2V PA LATERAL EXAM: XR CHEST 2V PA LATERAL CLINICAL HISTORY: evaluate pathology, congestive heart failure, I50.9 TECHNIQUE: 2D digital imaging was performed. COMPARISON: CT CT CHEST/ABD/PEL WO from 09/17/2023 FINDINGS: HEART: Normal size. Aorta: Enlarged. Status post CABG. PULMONARY VASCULATURE: Normal. LUNGS: Clear. No infiltrate or evidence of pulmonary edema. PLEURAL SPACE: No pleural effusion or pneumothorax. BONE:Unremarkable for age. Sternal wires. Hardware in left humerus. Soft tissues: Loop recorder device. IMPRESSION: No acute abnormality. DATA REPOSITORY: RADIATION DOSE DELIVERED:
== END ==
PROVIDERS: PCP Nurse Practitioner Family; Visit Provider Nurse Practitioner Family
DX: I50.9 Heart failure, unspecified (principal)
CPT/HCPCS: 71046

== ENCOUNTER 2023-11-18 14:17 | Outpatient (CLI) | payer MEDICARE, BC, SELFPAY ==
[2023-11-18 14:38] LABS: HCT 34.1 % (40.0-50.0); HGB 11.3 g/dL (13.5-17.5); MCH 27.6 pg (27.0-33.0); MCHC 33.1 % (32.0-36.0); MCV 83 fL (80-95); MPV 9.2 fL (8.0-11.0); Platelet Count 212 10^3/uL (130-400); RBC 4.09 10^6/uL (4.36-5.78); RDW 15.1 % (11.8-14.1); RDW-SD 45.1 fL; WBC 8.72 10^3/uL (4.4-10.8)
[2023-11-18 15:07] LABS: Anion Gap 9.9 mmol/L (3-11); BUN 18 mg/dL (7-18); CO2 29.1 mmol/L (21.0-32.0); CREATININE 1.2 mg/dL (0.70-1.30); Calcium 8.7 mg/dL (8.5-10.1); Chloride 103 mmol/L (98-107); Glucose 92 mg/dL (74-106); NT-proBNP 2378 pg/mL (<300); Sodium 142 mmol/L (136-145)
== END 2023-11-18 14:18 | disposition home or self-care (01) ==
LOC: LBO 14:17
PROVIDERS: PCP Nurse Practitioner Family; Visit Provider Nurse Practitioner Family
DX: I50.9 Heart failure, unspecified (principal)
CPT/HCPCS: 36415; 80048; 85027; 71046; 83880

== ENCOUNTER 2023-11-22 14:49 | Outpatient (REF) | payer MEDICARE, BC, SELFPAY ==
[2023-11-22 22:01] LABS: Anion Gap 10.2 mmol/L (3-11); BUN 23 mg/dL (7-18); CO2 27.8 mmol/L (21.0-32.0); CREATININE 1.3 mg/dL (0.70-1.30); Calcium 9.2 mg/dL (8.5-10.1); Chloride 103 mmol/L (98-107); Estimated GFR 60.59 (mL/min/1.73m2); Glucose 87 mg/dL (74-106); NT-proBNP 968 pg/mL (<300); Potassium 3.8 mmol/L (3.5-5.1); Sodium 141 mmol/L (136-145)
== END 2023-11-22 14:50 | disposition home or self-care (01) ==
LOC: LBN 14:49
PROVIDERS: PCP Nurse Practitioner Family; Visit Provider Nurse Practitioner Family
DX: I50.9 Heart failure, unspecified (principal); I10 Essential (primary) hypertension
CPT/HCPCS: 80048; 83880

== ENCOUNTER 2023-11-22 15:34 | Outpatient (CLI) | payer MEDICARE, BC, SELFPAY ==
--- NOTE | 2023-11-22 15:30 | DI.RAD_ITS ---
Exam(s) XR ELBOW LT COMPLETE EXAM: XR ELBOW LT COMPLETE CLINICAL HISTORY: f/u L elbow. TECHNIQUE: 2D digital imaging was performed. Three views. COMPARISON: DX XR ELBOW 3 VIEWS LEFT (GENERIC) from 06/09/2023 CR XR ELBOW LT COMPLETE from 07/29/2023 FINDINGS: BONES: Hardware in place in distal humerus and old fracture deformity. No change in the alignment of the distal humeral, supracondylar fracture. The fracture line remains visible.. No acute fracture is present. No bony destructive lesion is seen. JOINTS: The elbow is normally aligned. No joint effusion is seen. SOFT TISSUE: Normal. IMPRESSION: Delayed union of distal humeral fracture. DATA REPOSITORY: RADIATION DOSE DELIVERED:
== END 2023-11-22 15:35 | disposition home or self-care (01) ==
LOC: DIORS 15:34
PROVIDERS: PCP Nurse Practitioner Family; Referring Provider Nurse Practitioner Family; Visit Provider Student in an Organized Health Care Education/Training Program
DX: S42.412D Displaced simple supracondylar fracture without intercondylar fracture of left humerus, subsequent encounter for fracture with routine healing; W19.XXXD Unspecified fall, subsequent encounter
CPT/HCPCS: 99213; 73080

== ENCOUNTER → 2023-11-24 00:36 | Outpatient (CLI) | payer MEDICARE, BC, SELFPAY ==
--- NOTE | 2023-11-24 14:35 | DI.US_ITS ---
APPROVED REPORT EXAM: Comprehensive 2D, Doppler, and color-flow Echocardiogram Patient Location: Out-Patient Collection Card Clerk: Tatianna Up RDCS (AE) Indications: CHF, CABG (09/14/23) Other Information Study Quality: Adequate Conclusion Normal left ventricular wall thickness and chamber size. Ejection fraction is 55-60%. Wall motion i s normal Normal right ventricular size and systolic function Mildly dilated left atrium. Normal right atrial size Trileaflet aortic valve with trace regurgitation Normal mitral valve, trace to mild regurgitation Normal tricuspid valve with mild regurgitation Estimated right ventricular systolic pressure is 26 mmHg Mildly dilated ascending aorta and aortic root Wall motion Left Ventricle The left ventricle is normal size. The left ventricular systolic function is normal. The left ventric ular ejection fraction is within the normal range. There is normal left ventricular wall thickness. T here is normal LV segmental wall motion. The left ventricular diastolic function is normal. There is no ventricular septal defect visualized. LVEF is 55-60%. Right Ventricle The right ventricle is normal size. The right ventricular systolic function is normal. Atria Left atrium is mildly dilated. The right atrium size is normal. The interatrial septum is intact with no evidence for an atrial septal defect. Aortic Valve The aortic valve is normal in structure. Aortic valve is trileaflet. There is no aortic valvular sten osis. Trace aortic regurgitation. Mitral Valve The mitral valve is normal in structure. No evidence of mitral valve stenosis. Trace to mild mitral r egurgitation. Tricuspid Valve The tricuspid valve is normal in structure. There is no tricuspid valve stenosis. Mild tricuspid regu rgitation. The RVSP is 25.9 mmHg. Pulmonic Valve Pulmonic valve is not well visualized. There is no pulmonic valvular stenosis. There is no pulmonic v alvular regurgitation. Great Vessels Aortic root is mildly dilated. The ascending aorta is mildly dilated. Aortic arch is normal in calibe r. IVC is normal in size and collapses >50% with inspiration. Pericardium There is no pericardial effusion. 2D Dimensions IVSD d PLAX 1.04 cm M: 0.6-1.2 Ao Root d 4.08 cm M: 3.1 - 3.7 LVPW d PLAX 0.98 cm M: 0.6 - 1.2 Ao Asc Diam d 4.06 cm M: 2.6 - 3.4 LVID d PLAX 4.59 cm M: 4.2 - 5.8 LVDs 3.36 cm M: 2.5 - 4.0 LV EF Teichholz 52.5 % FS 26.88 % LV EDV (Teich) 96.9 mL LV ESV (Teich) 46.0 mL M-Mode TAPSE 1.69 cm (M/F) >1.7 Auto EF LV EDV A4C 155.6 mL LV EDV A2C 221.8 mL LV EDV BP 182.0 mL LV ESV A4C 75.3 mL LV ESV A2C 87.8 mL LV ESV BP 79.8 mL LVEF(%) A4C 51.6 % LVEF(%) A2C 60.4 % LVEF(%) BP 56.2 % LV SV A4C 80.3 ml LV SV A2C 134.1 ml LV SV BP 102.3 ml LV CO A4C 4.2 L/min LV CO A2C 7.4 L/min LV CO BP 5.8 L/min HR A4C 52.71 BPM HR A2C 55.22 BPM LV EDV Index (BP) LV Strain Long Pk Overal Avg (s) 14.34 LA Volume LA Length A4C 5.7 cm LA Length A2C 5.7 cm LA Area A4C s 22.51 cm2 LA Area A2C s 27.38 cm2 LA Vol A4C A-L 75.30 mL LA Vol A2C A-L 110.87 mL LA Vol Biplane A-L 91.6 mL LA Vol/BSA A4C A-L LA Vol/BSA A2C A-L LA Vol/BSA BP A-L 43.0 mL/m2 LA Vol A4C MOD 69.0 mL LA Vol A2C MOD 106.6 mL LA Vol BP MOD 85.8 mL RA Volume RA Area A4C 18.2 cm2 RA ESV A4C (A-L) 50.6mL RA Vol/BSA A4C A-L RA Length A4C 5.5 cm RA ESV A4C (MOD) 49.3mL LV Diastology MV E' medial 0.056 (>0.07 m/s) MV E Vmax 0.61 (0.4-1.3 m/s) MV E/E' MED 10.91 (<14) MV A Vmax 0.55 (0.4-1.3 m/s) MV E' lateral 0.077 (>0.1 m/s) E/A Ratio 1.1 MV E/E' LAT 7.99 (<14) MV E' Average 0.066 m/s MV E/E'(average) 9.22 Aortic Valve AoV Vmax 1.36 m/s LVOT Vmax 0.99 m/s AoV Peak Grad 7.4 mmHg LVOT Peak Grad 4.0 mmHg AoV Area (Vmax) 2.72 cm2 LVOT VTI 0.220 m AoV VTI 0.321 m LVOT Mean Grad 1.9 mmHg AoV Mean Luis. 0.94 m/s LVOT SV 82.23 mL AoV Mean Grad 4.0 mmHg LVOT Diam s 2.15 cm AoV Area (VTI) 2.56 cm2 Velocity Ratio 0.73 Mitral Valve MV DT 359 (160-240 msec) MV Vmax TIPS 0.51 m/s MV Mean Grad 0.5 (<2mmHg) MV VTI 0.212 m Pulmonary Valve PV Vmax 0.66 (0.5-1.5 m/s) RVOT Vmax 0.42 m/s PV Peak Grad 1.8 mmHg RVOT Peak Gr. 0.7 mmHg PV Mean Luis 0.47 m/s RVOT VTI 0.128 m PV Mean Grad 1.0 mmHg RVOT Mean Gr. 0.6 mmHg Tricuspid Valve RA Pressure 3.00 mmHg TR Vmax 2.39 m/s TV S' 0.11 m/s TR Peak Grad 22.8 mmHg RVSP (TR) 25.9 mmHg
== END ==
PROVIDERS: PCP Nurse Practitioner Family; Visit Provider Nurse Practitioner Family
DX: I50.9 Heart failure, unspecified (principal)
CPT/HCPCS: 93306

== ENCOUNTER 2024-02-28 14:45 | Outpatient (CLI) | payer MEDICARE, BC, SELFPAY ==
--- NOTE | 2024-02-28 14:30 | DI.RAD_ITS ---
Exam(s) XR ELBOW LT COMPLETE EXAM: XR ELBOW LT COMPLETE CLINICAL HISTORY: F/U L HUMERUS FX. TECHNIQUE: 2D digital imaging was performed. Three views. COMPARISON: CR XR ELBOW LT COMPLETE from 11/22/2023 FINDINGS: BONES: There is increased separation at the distal humeral fracture with compared to the prior exam. No visible bony bridging. Hardware in old humeral fracture noted. No acute fracture is present. No bony destructive lesion is seen. JOINTS: The elbow is normally aligned. No joint effusion is seen. SOFT TISSUE: Normal. IMPRESSION: Increased separation at the distal humeral fracture site. DATA REPOSITORY: RADIATION DOSE DELIVERED:
== END 2024-02-28 14:46 | disposition home or self-care (01) ==
LOC: DIORS 14:46
PROVIDERS: PCP Nurse Practitioner Family; Referring Provider Nurse Practitioner Family; Visit Provider Student in an Organized Health Care Education/Training Program
DX: S42.412K Displaced simple supracondylar fracture without intercondylar fracture of left humerus, subsequent encounter for fracture with nonunion; X58.XXXD Exposure to other specified factors, subsequent encounter
CPT/HCPCS: 99214; 73080

== ENCOUNTER → 2024-03-03 01:05 | Outpatient (CLI) | payer MEDICARE, BC, SELFPAY ==
--- NOTE | 2024-03-03 07:30 | DI.CT_ITS ---
Exam(s) CT UPPER EXTREMITY LT WO 3D RECON ON CT WORKSTATION EXAM: CT UPPER EXTREMITY LT WO CLINICAL HISTORY: PAIN,SUPRACONDYLAR FX OF HUMERUS,[id number] TECHNIQUE: Imaging Protocol: Axial computed tomography images with coronal and sagittal reformatted images were created and reviewed. 3D reconstructions also performed. CONTRAST MATERIAL: Noncontrast CR XR ELBOW LT COMPLETE from 02/28/[address] ON [address] WORKSTATION from 03/03/2024 FINDINGS: Bones: There is an intramedullary regard in the humerus. The fracture extending transversely through the supracondylar region is unchanged in alignment. No evidence of bony bridging. Sclerosis some o f all sides of the fracture with irregular margins. Fluid seen within fracture and adjacent to epico ndyles. Elbow alignment is satisfactory. No cellulitic or osteomyelitic changes are identified. There is no evidence of joint space narrowing or cystic degeneration seen. No lytic or sclerotic lesions are identified. A joint effusion is present. Soft Tissues: Normal. IMPRESSION: Findings consistent with nonunited fracture of the supracondylar region with surround fluid. RADIATION DOSE DELIVERED: 250.9mGy.cm Total DLP DATA REPOSITORY: All CT scans at this facility are submitted to the National Radiology Data Registry (NRDR) Dose Index Registry (DIR) with the [employer] (ACR). RADIATION OPTIMIZATION: All CT scans at this facility use at least one of these dose optimization te chniques: automated exposure control; mA and/or kV adjustment per patient size (includes targeted exa ms where dose is matched to clinical indication); or iterative reconstruction.
== END ==
PROVIDERS: PCP Nurse Practitioner Family; Visit Provider Student in an Organized Health Care Education/Training Program
DX: S42.412D Displaced simple supracondylar fracture without intercondylar fracture of left humerus, subsequent encounter for fracture with routine healing (principal); X58.XXXD Exposure to other specified factors, subsequent encounter
CPT/HCPCS: 76376; 73200

== ENCOUNTER → 2024-06-02 14:20 | Outpatient (BNVA) | payer MEDICARE, BC, SELFPAY | PROVIDERS: PCP Nurse Practitioner Family; Visit Provider Urology | DX: R39.89 Other symptoms and signs involving the genitourinary system (principal); Z85.528 Personal history of other malignant neoplasm of kidney | CPT/HCPCS: 99213 ==

== ENCOUNTER 2024-07-19 15:07 | Outpatient (REF) | payer MEDICARE, BC, SELFPAY ==
[2024-07-19 21:50] LABS: ALT 23 U/L (16-63); AST 30 U/L (15-37); Alkaline Phosphatase 212 U/L (46-116); Anion Gap 11.3 mmol/L (3-11); BUN 16 mg/dL (7-18); Bilirubin, Total 0.58 mg/dL (0.2-1.0); CO2 26.7 mmol/L (21.0-32.0); CREATININE 1.2 mg/dL (0.70-1.30); Calcium 8.5 mg/dL (8.5-10.1); Calculated LDL 33 mg/dL (<100); Chloride 104 mmol/L (98-107); Cholesterol 110 mg/dL (<200); Estimated GFR 66.28 (mL/min/1.73m2); Glucose 103 mg/dL (74-106); HDL Cholesterol 35 mg/dL (40-60); Potassium 3.9 mmol/L (3.5-5.1); Sodium 142 mmol/L (136-145); Total Protein 7.9 g/dL (6.4-8.2); Triglyceride 212 mg/dL (<150)
[2024-07-19 22:38] LABS: Uric Acid 4.1 mg/dL (3.5-7.2)
[2024-07-20 21:23] LABS: HIV-1/2 Ag & Ab Screen Negative (Negative)
[2024-07-21 09:40] LABS: Hepatitis C Ab w Rflx HCV PCR Negative (Negative)
== END 2024-07-19 15:08 | disposition home or self-care (01) ==
LOC: LBN 15:07
PROVIDERS: PCP Nurse Practitioner Family; Visit Provider Nurse Practitioner Family
DX: E78.5 Hyperlipidemia, unspecified (principal); Z11.4 Encounter for screening for human immunodeficiency virus [HIV]; Z11.59 Encounter for screening for other viral diseases
CPT/HCPCS: 80053; 80061; 86803; 87389; 84550

== ENCOUNTER 2024-07-20 00:55 | Outpatient (CLI) | payer MEDICARE, BC, SELFPAY ==
--- NOTE | 2024-07-20 | DI.MRI_ITS ---
Exam(s) MR LUMBAR SPINE WO EXAM: MR LUMBAR SPINE WO CLINICAL HISTORY: spinal stenosis, lumbar radiculopathy, M48.00, M54.16, no improvement PT. TECHNIQUE: Multiplanar multisequence MRI of the Lumbar spine was performed. COMPARISON: Prior outside MRI LUMBAR SPINE WO CONTRAST from 02/11/[address] CHEST/ABD/PEL WO from 09/17/2023 FINDINGS: Conus medullaris is at normal level. There is no evidence of conus mass nor subjacent clumping of in trathecal nerve roots to suggest arachnoiditis. The distal thecal sac appears unremarkable. Bones:There are no fractures nor ominous osseous lesions in the lumbar vertebral bodies and visualize d sacrum. There is a degenerative scoliosis in the lumbar spine which is convex left and is related to asymmetric disc space narrowing on the right side at multiple levels as described below. With respect to the individual levels... T12-L1: Chronic disc space narrowing evident diffuse annular bulging. No dominant disc herniation. Central canal dimensions are lower normal. Mild degenerative changes in the facet joints. There is significant bilateral foraminal stenosis bilaterally mostly related to the vertebral disc height loss at this level. Findings at this level are relatively similar to the prior 2020 MRI study. L1-2: This level exhibits mild relatively uniform disc space narrowing. There is relatively symmetri rena annular bulging at this level which extends into the floor of the exiting neural foramina bilater ally, more so than previous. However, there is only mild bilateral foraminal stenosis. There is mil d central canal stenosis. L2-3: This level exhibits chronic advanced disc space narrowing which is slightly more prominent on t he right side and there are lateral right sided osteophytes noted. There is broad annular bulging at this level resulting in moderate central spinal canal stenosis, similar to previous. However, the p reviously present herniated disc at the level of the right lateral recess is no longer seen. There i s mild bilateral foraminal stenosis at this level. Mild degenerative changes in both facet joints. L3-4: This level exhibits advanced disc space narrowing on the right side and relatively preserved di sc height on the left side.. This was also evident on the prior study. Lateral right-sided osteophy evelia are noted. There is broad annular bulging with moderate-severe central spinal canal stenosis at this level again noted. However, a previously present superimposed right-sided disc protrusion in th e right lateral recess at this level is less evident on the present study. Nevertheless, there is as ymmetric moderate-severe right-sided foraminal stenosis at this level mostly due to the asymmetric di sc height loss at this level on the right side. There are moderate degenerative changes in the facet joints. There is also a small degenerative synovial cyst off the inner aspect of the right facet fito int at this level now evident. This slightly impinges upon the right-side of the thecal sac at this level. L4-5: This level again exhibits advanced uniform disc space narrowing. No listhesis. There is relat ively symmetrical annular bulging posteriorly with mild central canal stenosis. No dominant disc her niation. There is significant narrowing of the exiting neural foramen on the left side due to vertic al height loss disc space and degenerative changes in the left facet joint and short AP dimensions of the pedicle. The foraminal stenosis on the right side at this level is slightly less severe. L5-S1: This level exhibits asymmetric disc space narrowing, more so on the left than right side. The re is symmetrical annular bulging without a dominant disc herniation. Central canal dimensions are w ithin normal limits. There is moderate-severe narrowing of the exiting left neural foramen and milde r narrowing of the exiting right neural foramen. There are mild degenerative changes in both facet j oints. Soft tissues: Previously described abnormality in the superior pole the left kidney is noted, discus sed prior CT scan of September 2023. See separate report IMPRESSION: 1. There is advanced multilevel degenerative disc disease again noted as well as degenerative scolios is convex left. 2. There is significant spinal canal stenosis again noted L2-3 and L3-4 levels. However, the previou sly present additional focal disc protrusions at these levels (right paracentral L2-3 and central/rig ht paracentral L3-4) are not evident on the present study. There is a small degenerative synovial cy st off the inner aspect of the right facet joint at the L3-4 level noted which slightly impinges upon the right-side of the thecal sac at this level. 3. There is multilevel asymmetric foraminal narrowing as described individually above. The asymmetri c narrowing is mostly related to the asymmetric disc height loss at multiple levels.. Left kidney finding again noted, discussed separately. DATA REPOSITORY:
[2024-07-20 10:35] LABS: CREATININE 1.3 mg/dL (0.70-1.30); Estimated GFR 60.21 (mL/min/1.73m2)
== END 2024-07-20 01:15 ==
LOC: DI 00:56
PROVIDERS: Surgery; PCP Nurse Practitioner Family; Visit Provider Nurse Practitioner Family
DX: M54.16 Radiculopathy, lumbar region (principal); C64.2 Malignant neoplasm of left kidney, except renal pelvis
CPT/HCPCS: 72148; 82565

== ENCOUNTER 2024-07-20 00:56 | Outpatient (CLI) | payer MEDICARE, BC, SELFPAY ==
--- NOTE | 2024-07-20 | DI.MRI_ITS ---
Exam(s) MR ABDOMEN WO/W EXAM: MR ABDOMEN WO/W CLINICAL HISTORY: RENAL CELL CARCINOMA C64.9 S/P PARTIAL LT NEPHRECTOMY FOR RCC TECHNIQUE: Multiplanar multisequence MRI was performed with both pre and post contrast infused seque nces. Contrast injected sequences were performed following IV injection of 20 cc of Dotarem. COMPARISON: CT CT ABDOMEN PELVIS WO/W from 01/20/2023 MR MR ABDOMEN WO/W from 04/15/[address] CHEST/ABD/PEL WO from 09/17/2023 FINDINGS: VISUALIZED LUNG BASES: No pleural effusions evident. There is no ascites evident. LIVER: No new significant lesions evident. BILIARY: Single gallstone again noted in the gallbladder lumen. The gallbladder is not edematous and there is no pericholecystic fluid. The CBD is not dilated. PANCREAS: There is no evidence of pancreatic mass nor dilatation of the pancreatic duct. SPLEEN: Mild splenomegaly again noted. No intrasplenic lesions evident.Splenic and portal veins are patent ADRENALS: There are no significant adrenal masses. KIDNEYS: The previously described collection associated with the superior aspect of the left kidney i s again noted and has further decreased in size, presently measuring 3.7 cm wide by 2.7 cm AP by 3.3 cm craniocaudal. Mom it is again comprised of fluid and fat and most probably related to post interv entional procedure. There are no other significant findings in the left kidney. No hydronephrosis. Tiny benign cysts are noted in the opposite-right kidney. No significant solid mass seen in the rig ht kidney. No hydronephrosis on either side. ABDOMINAL AORTA: Not enlarged and there is no significant para-aortic adenopathy. ANTERIOR ABDOMINAL WALL/GI: There is no evidence of significant anterior abdominal wall hernia in the field of view of this study.Is no evidence of obvious bowel obstruction. OSSEOUS: There are no lytic osseous lesions in the field of view of this study. Multilevel chronic degenerative disc disease and degenerative mild scoliosis in the lumbar spine conv ex left. IMPRESSION: 1. Compared to the prior MRI scan of April 2023 there has been further decrease in size of the fat flu id postsurgical lesion in the upper pole region of the left kidney. Previously measured 6 x 4.4 x 4. 5 cm and presently measures 3.7 cm x 2.7 x 3.3 cm. No new left kidney findings. No hydronephrosis 2. Several tiny benign cysts are again noted in the right kidney. No solid lesions. No hydronephros is. 3. Cholelithiasis again noted without evidence of acute cholecystitis. DATA REPOSITORY:
--- NOTE | 2024-07-20 08:56 | DI.RAD_ITS ---
Exam(s) XR CHEST 2V PA LATERAL EXAM: XR CHEST 2V PA LATERAL CLINICAL HISTORY: RENAL CELL CARCINOMA C64.9 S/P PARTIAL LT NEPHRECTOMY FOR RCC. TECHNIQUE: 2D digital imaging was performed. COMPARISON: CR XR CHEST 2V PA LATERAL from 11/18/2023 FINDINGS: 2 views: Sternotomy wires and evidence of previous CABG again noted as well as a left anterior chest wall card iac recording device. Heart size upper normal. The mediastinum is not widened. Subtle nodular density seen in the left upper lobe region projected over the 2nd rib Another subtle density is seen in the right lung base projected over the anterior aspect of the right 6 rib. No pleural effusions. IMPRESSION: Subtle bilateral findings evident which were not present on 11/18/2023. Given the history here recom mend follow-up chest CT scan DATA REPOSITORY: RADIATION DOSE DELIVERED:
[2024-07-20] MEDS: Normal Saline - Diluent 50 ML VIAL 25 ML IJ (09:55)
[2024-07-20] MEDS: Gadoterate meglumine 20 ML VIAL IVP (09:56)
== END 2024-07-20 01:16 ==
LOC: DI 00:56
PROVIDERS: PCP Nurse Practitioner Family; Visit Provider Surgery
DX: C64.2 Malignant neoplasm of left kidney, except renal pelvis (principal); M41.26 Other idiopathic scoliosis, lumbar region
CPT/HCPCS: 74183; 71046; 72148; 82565

== ENCOUNTER 2024-08-16 08:22 | Outpatient (CLI) | payer MEDICARE, BC, SELFPAY ==
--- NOTE | 2024-08-16 08:30 | RT.EKG_ITS ---
APPROVED REPORT Exam: Resting ECG Reason for Exam: hx of afib Patient Location: O HR:57 bpm ECG Measurements Heart Rate 57 AXIS LA 219 P -30 QRSd 88 QRS -14 QT 448 T 112 QTc 437 Conclusion Sinus rhythm...normal P axis, V-rate 50- 99 Borderline prolonged LA interval...LA >212, V-rate 50- 90 Probable left atrial enlargement...P >50mS, <-0.10mV V1 LVH with secondary repolarization abnormality...multi-LVH criteria, abnrm ST-T
== END 2024-08-16 08:23 | disposition home or self-care (01) ==
LOC: DI.CARD 08:34
PROVIDERS: PCP Nurse Practitioner Family; Referring Provider Nurse Practitioner Family; Visit Provider Internal Medicine Cardiovascular Disease
DX: I49.9 Cardiac arrhythmia, unspecified (principal); I48.91 Unspecified atrial fibrillation; I48.0 Paroxysmal atrial fibrillation
CPT/HCPCS: 93010

== ENCOUNTER → 2024-08-16 08:22 | Outpatient (BNVA) | payer MEDICARE, BC, SELFPAY | PROVIDERS: PCP Nurse Practitioner Family; Referring Provider Nurse Practitioner Family; Visit Provider Internal Medicine Cardiovascular Disease | DX: R94.31 Abnormal electrocardiogram [ECG] [EKG] (principal); I48.0 Paroxysmal atrial fibrillation | CPT/HCPCS: 93005; 99214 ==

== ENCOUNTER 2024-08-29 01:50 | Outpatient (CLI) | payer MEDICARE, BC, SELFPAY ==
--- NOTE | 2024-08-29 12:30 | DI.US_ITS ---
APPROVED REPORT EXAM: Comprehensive 2D, Doppler, and color-flow Echocardiogram Patient Location: Out-Patient [facility] Professor: Tatianna Up RDCS (AE) Indications: SOB Other Information Study Quality: Fair. Technically limited study due to body habitus. Conclusion Normal left ventricular wall thickness and chamber size. Ejection fraction biplane is 52%. Wall mot ion is normal Normal right ventricular size and function Both atria are normal in size Aortic valve is mildly sclerotic and trileaflet with mild regurgitation Mildly thickened mitral leaflets, mild mitral regurgitation Normal tricuspid valve with trace to mild regurgitation. Estimated right ventricular systolic pressu re is 25 mmHg Mildly dilated ascending aorta 3.79 cm Wall motion Left Ventricle The left ventricle is normal size. Left ventricular systolic function is within the range of normal There is normal left ventricular wall thickness. There is normal LV segmental wall motion. There is n o ventricular septal defect visualized. LVEF is 50-55%. Right Ventricle The right ventricle is normal size. The right ventricular systolic function is normal. Atria The left atrium size is normal. The right atrium size is normal. The interatrial septum is intact wit h no evidence for an atrial septal defect. Aortic Valve The Aortic valve is mildly sclerotic. Aortic valve is trileaflet. There is no aortic valvular stenos is. mild aortic regurgitation. Mitral Valve Mitral valve leaflets are mildly thickened. No evidence of mitral valve stenosis. Mild mitral regurgi tation. Tricuspid Valve The tricuspid valve is normal in structure. There is no tricuspid valve stenosis. Trace to mild tricu spid regurgitation. The RVSP is 24.8_ mmHg. Pulmonic Valve The pulmonary valve is normal in structure. There is no pulmonic valvular stenosis. Mild pulmonic reg urgitation. Great Vessels The aortic root is normal in size. The ascending aorta is mildly dilated. Aortic arch is normal in ca liber. IVC is normal in size and collapses >50% with inspiration. Pericardium There is no pericardial effusion. 2D Dimensions IVSD d PLAX 1.00 cm M: 0.6-1.2 Ao Root d 3.67 cm M: 3.1 - 3.7 LVPW d PLAX 1.01 cm M: 0.6 - 1.2 Ao Asc Diam d 3.79 cm M: 2.6 - 3.4 LVID d PLAX 4.90 cm M: 4.2 - 5.8 LVDs 3.58 cm M: 2.5 - 4.0 LV EF Teichholz 52.4 % FS 26.93 % LV EDV (Teich) 113.1 mL LV ESV (Teich) 53.8 mL M-Mode TAPSE 1.52 cm (M/F) >1.7 Auto EF LV EDV A4C 115.5 mL LV EDV A2C 192.2 mL LV EDV BP 148.5 mL LV ESV A4C 55.0 mL LV ESV A2C 96.9 mL LV ESV BP 73.2 mL LVEF(%) A4C 52.4 % LVEF(%) A2C 49.6 % LVEF(%) BP 50.7 % LV SV A4C 60.5 ml LV SV A2C 95.3 ml LV SV BP 75.3 ml LV CO A4C 4.2 L/min LV CO A2C 6.5 L/min LV CO BP 5.3 L/min HR A4C 68.71 BPM HR A2C 68.06 BPM LV EDV Index (BP) LA Volume LA Length A4C 5.5 cm LA Length A2C 5.4 cm LA Area A4C s 22.67 cm2 LA Area A2C s 22.24 cm2 LA Vol A4C A-L 79.41 mL LA Vol A2C A-L 77.15 mL LA Vol Biplane A-L 78.6 mL LA Vol/BSA A4C A-L LA Vol/BSA A2C A-L LA Vol/BSA BP A-L 37.6 mL/m2 LA Vol A4C MOD 75.0 mL LA Vol A2C MOD 72.0 mL LA Vol BP MOD 73.7 mL RA Volume RA Area A4C 20.5 cm2 RA ESV A4C (A-L) 70.0mL RA Vol/BSA A4C A-L RA Length A4C 5.1 cm RA ESV A4C (MOD) 64.6mL LV Diastology MV E' medial 0.061 (>0.07 m/s) MV E Vmax 0.72 (0.4-1.3 m/s) MV E/E' MED 11.86 (<14) MV A Vmax 0.65 (0.4-1.3 m/s) MV E' lateral 0.082 (>0.1 m/s) E/A Ratio 1.1 MV E/E' LAT 8.77 (<14) MV E' Average 0.071 m/s MV E/E'(average) 10.08 Aortic Valve AoV Vmax 1.21 m/s LVOT Vmax 0.85 m/s AoV Peak Grad 5.9 mmHg LVOT Peak Grad 2.9 mmHg AoV Area (Vmax) 2.51 cm2 LVOT VTI 0.191 m AoV VTI 0.298 m LVOT Mean Grad 1.3 mmHg AoV Mean Luis. 0.82 m/s LVOT SV 68.33 mL AoV Mean Grad 3.2 mmHg LVOT Diam s 2.10 cm AoV Area (VTI) 2.29 cm2 AV Regurg Peak Gr. 5.89 mmHg Velocity Ratio 0.70 Mitral Valve MV DT 225 (160-240 msec) MV Vmax TIPS 0.55 m/s MV Mean Grad 0.3 (<2mmHg) MV VTI 0.214 m Pulmonary Valve RVOT Vmax 0.60 m/s RVOT Peak Gr. 1.4 mmHg RVOT VTI 0.136 m RVOT Mean Gr. 0.8 mmHg Tricuspid Valve RA Pressure 3.00 mmHg TR Vmax 2.33 m/s TV S' 0.13 m/s TR Peak Grad 21.7 mmHg RVSP (TR) 24.8 mmHg
== END 2024-08-29 02:10 ==
LOC: DI 01:50
PROVIDERS: PCP Nurse Practitioner Family; Visit Provider Internal Medicine Cardiovascular Disease
DX: I50.9 Heart failure, unspecified (principal); I35.1 Nonrheumatic aortic (valve) insufficiency
CPT/HCPCS: 93306

== ENCOUNTER 2024-12-07 01:47 | Outpatient (CLI) | payer MEDICARE, BC, SELFPAY ==
--- NOTE | 2024-12-07 | DI.CT_ITS ---
Exam(s) CT CHEST WO EXAM: CT CHEST WO CLINICAL HISTORY: Renal cell carcinoma, unspecified laterality, C64.9 TECHNIQUE: Imaging Protocol: Axial computed tomography images with coronal and sagittal reformatted images were created and reviewed. Computer aided detection (CAD) was utilized. CONTRAST MATERIAL: Noncontrast COMPARISON: CT CT CHEST/ABD/PEL WO from 09/17/2023 CR XR CHEST 2V PA LATERAL from 07/20/2024 FINDINGS: Pulmonary parenchyma: No consolidation. No dominant measurable mass. Stable circumscribed nodule lat eral right middle lobe. Tracheobronchial tree: No bronchiectasis or mucous plugging. Mediastinum and Juliet: No dominant adenopathy or fluid collection. Pleura: No effusion. No pneumothorax. Heart: The heart is not dilated. Prominent coronary artery calcifications are seen. Status post C ABG. Aorta: Thoracic aorta non-dilated. Mild atherosclerotic changes. Pulmonary arteries: Mildly dilated. Upper abdomen: No acute findings. Cholelithiasis. Fatty left renal lesion decreased from prior exa m. Stable 1 centimeter right adrenal adenoma. Bones: Degenerative changes in the spine. Sternal wires. Old left rib fractures. Soft tissues: Unremarkable. IMPRESSION: Metastatic disease or other acute abnormality in the chest. Stable upper abdominal findings. RADIATION DOSE DELIVERED: 318.24mGy.cm Total DLP DATA REPOSITORY: All CT scans at this facility are submitted to the National Radiology Data Registry (NRDR) Dose Index Registry (DIR) with the [employer] ([employer]). RADIATION OPTIMIZATION: All CT scans at this facility use at least one of these dose optimization te chniques: automated exposure control; mA and/or kV adjustment per patient size (includes targeted exa ms where dose is matched to clinical indication); or iterative reconstruction.
== END 2024-12-07 02:07 ==
LOC: DI 01:47
PROVIDERS: PCP Nurse Practitioner Family; Visit Provider Surgery
DX: C64.9 Malignant neoplasm of unspecified kidney, except renal pelvis (principal)
CPT/HCPCS: 71250

== ENCOUNTER 2025-04-05 10:19 | Outpatient (CLI) | payer MEDICARE, BC, SELFPAY ==
[2025-04-05] VITALS (8 sets, daily range): BP systolic 139–169; BP diastolic 83–145; PULSE 59–71; RESP 18; TEMP 36.8; O2SAT 96–98
--- NOTE | 2025-04-05 11:18 | DI.RAD_ITS ---
Exam(s) XR PAIN CLINIC LUMBAR SP 2V EXAM: XR PAIN CLINIC LUMBAR SP 2V CLINICAL HISTORY: Dx: Lumbar Spondylosis TECHNIQUE: 2D and realtime digital imaging was performed. CONTRAST MATERIAL: Refer to procedure report. COMPARISON: No exams were available for comparison FINDINGS: Fluoroscopy was provided for Dr. Burden during the performance of a lumbar medial branch block. Please refer to the procedure report for complete details. Ka,r=32.1 mGy IMPRESSION: RADIATION DOSE DELIVERED: 0.0 0.0 0
--- NOTE | 2025-04-05 11:21 | PDOC.PAIN_ITS ---
Date of service: 04/05/25 Time of Service: 11:22 Pain Managment Procedure Note Procedure Note Procedure Note: PROCEDURE NOTE Bilateral Lumbar Medial Branch Blocks Date of Service: April 05, 2025 Patient: Tim Evans Provider: Anjelica Burden DO, MPH Tim Lebron Evans has been referred to the [facility] for lumbar medial branch blocks. Pre-operative diagnosis: Lumbar Spondylosis without Myelopathy ICD-10 M47.816 Post-operative diagnosis: Same Pre-procedure pain: VAS= 6/10 COMMENTS: I previously evaluated him in the office. No symptom changes. Héctor was interviewed and the medical records were reviewed. There were no medical, pharmacologic, radiographic or other structural contraindications to attempting fluoroscopically guided local anesthetic lumbar medial branch blocks. Risks and potential side effects were discussed. I also discussed the potential benefit(s) of the procedure with Tim, and voiced concerns were addressed. After Tim was completely informed about the procedure, the printed consent form was signed. A standard time-out procedure was performed. Tim was placed in the prone position on the fluoroscopy table. Automated blood pressure cuff and pulse oximeter were applied. The skin entry points for approaching the anatomic target points of the segmental medial branches of bilateral L3,L4,L5 were identified with fluoroscopy and marked. The skin at the target site area was thoroughly prepared with Chlorhexadine. The skin was then draped. Next, a 25 gauge 3.5 spinal needle was placed under fluoroscopic guidance down on to the target point (the articular pillar) for each respective segmental medial branch. Position was confirmed in A/P and lateral views. Aspiration revealed no blood or clear fluid. Next, 0.25ml of omnipaque 240 was injected at each level. No contrast following a vascular or neural pattern was visualized under continuous fluoroscopy. Next, 0.25 ml of preservative-free 0.5% bupivicaine was injected at each level. There was no unusual discomfort expressed by Tim. The needles were withdrawn without difficulty. (49 mls of Omnipaque was wasted) Tim was observed and was without hemodynamic, neurologic, or allergic reactions.? Fluoroscopic images were digitally archived. Provacative testing using the Modified Villa's facet loading test- Left side Right Side Directly before the block VAS (0-10) = 6/10 VAS (0-10) = 6/10 Five minutes after the block VAS (0-10) = 2/10 VAS (0-10) = 2/10 Percentage relief obtained with this diagnostic block 70% 70% Any improved physical functioning directly after the blocks? Able to move around much better. Follow up plans and appointments were discussed with Tim. Tim was instructed to keep careful note of how the usual pain was modified by these injections. Specifically, to keep a pain diary for the next 4 hours using a numeric pain scale of 0-10 and report these results. Post procedure instruction was given as documented in the nursing documentation and having met discharge criteria, the patient was [facility] the [facility]. Based on the medial branches blocked today, if they patient has adequate relief and we are able to proceed to radiofrequency ablation, the treatment should result in the denervation of the bilateral L4-L5 and L5-S1 facet joints. We would expect to denervate a total of 4 facets during the radiofrequency ablation. COMMENTS: No apparent complications. Post-procedure pain: VAS= 2/10 Tim will call back with 0-4 hour post-procedure pain scores. I personally performed the entire procedure. ANJELICA BURDEN DO, MPH ABPM&R-subspecialty board certification in Pain Medicine [facility] Coding Conscious Sedation used for procedure: No CPT Codes: LMBB (includes Fluoro) Lumbar/Sacral, 2nd lvl - 98628 ([id number] ~G) LMBB (includes Fluoro) Lumbar/Sacral, single lvl *BILATERAL* - [id number] ([id number]~G5) Additional Codes: Date of Service (18105) Date of service: 04/05/25 Diagnoses: Lumbosacral spondylosis without myelopathy
[2025-04-05] MEDS: Bupivacaine 0.5% Pres-Free 10 ML VIAL IJ (11:26)
[2025-04-05] MEDS: Omnipaque 240 MG/ML 50 ML BTL IJ (11:26)
[2025-04-05] MEDS: Nerve Block Tray 1 EACH MC (11:26)
== END 2025-04-05 10:20 | disposition home or self-care (01) ==
LOC: PC 10:19
PROVIDERS: PCP Nurse Practitioner Family; Visit Provider Preventive Medicine Occupational Medicine
DX: M54.50 Low back pain, unspecified (principal); M47.816 Spondylosis without myelopathy or radiculopathy, lumbar region
CPT/HCPCS: 64493; 64494; 72100; J0665; Q9967

== ENCOUNTER 2025-07-20 10:41 | Outpatient (CLI) | payer MEDICARE, BC, SELFPAY ==
[2025-07-20 14:51] LABS: Hemoglobin A1C 5.5 % (<5.7)
[2025-07-20 15:09] LABS: ALT 19 U/L (16-63); AST 22 U/L (15-37); Albumin 3.9 g/dL (3.4-5.0); Alkaline Phosphatase 208 U/L (46-116); Anion Gap 10.8 mmol/L (3-11); BUN 21 mg/dL (7-18); Bilirubin, Total 0.6 mg/dL (0.2-1.0); CO2 25.2 mmol/L (21.0-32.0); Calcium 8.4 mg/dL (8.5-10.1); Chloride 105 mmol/L (98-107); Estimated GFR 54.75 (mL/min/1.73m2); Glucose 105 mg/dL (74-106); Potassium 4.1 mmol/L (3.5-5.1); Sodium 141 mmol/L (136-145); Total Protein 8.0 g/dL (6.4-8.2); Uric Acid 3.2 mg/dL (3.5-7.2)
[2025-07-20 16:04] LABS: Calculated LDL 52 mg/dL (<100); Cholesterol 108 mg/dL (<200); HDL Cholesterol 37 mg/dL (>or=40); Triglyceride 96 mg/dL (<150)
== END 2025-07-20 10:42 | disposition home or self-care (01) ==
LOC: LOS 10:42
PROVIDERS: PCP Nurse Practitioner Family; Visit Provider Nurse Practitioner Family
DX: E78.5 Hyperlipidemia, unspecified (principal); M10.9 Gout, unspecified; E11.42 Type 2 diabetes mellitus with diabetic polyneuropathy; E11.9 Type 2 diabetes mellitus without complications
CPT/HCPCS: 36415; 80053; 80061; 83036; 84550

== ENCOUNTER 2025-08-15 08:15 | Outpatient (CLI) | payer MEDICARE, BC, SELFPAY ==
--- NOTE | 2025-08-15 08:15 | RT.EKG_ITS ---
APPROVED REPORT Exam: Resting ECG Reason for Exam: afib, SVT Patient Location: O HR:70 bpm ECG Measurements Heart Rate 70 AXIS ME [id number] P [id number] QRSd 92 QRS -8 QT 436 T 100 QTc 471 Conclusion Sinus rhythm LVH with secondary repolarization abnormality...multi-LVH criteria, abnrm ST-T
== END 2025-08-15 08:16 | disposition home or self-care (01) ==
LOC: DI.CARD 08:16
PROVIDERS: PCP Nurse Practitioner Family; Visit Provider Registered Nurse
DX: I48.0 Paroxysmal atrial fibrillation (principal); I21.4 Non-ST elevation (NSTEMI) myocardial infarction
CPT/HCPCS: 93010

== ENCOUNTER → 2025-08-15 10:12 | Outpatient (BNVA) | payer MEDICARE, BC, SELFPAY | PROVIDERS: PCP Nurse Practitioner Family; Referring Provider Nurse Practitioner Family; Visit Provider Registered Nurse | DX: I48.91 Unspecified atrial fibrillation (principal); I21.4 Non-ST elevation (NSTEMI) myocardial infarction; Z79.02 Long term (current) use of antithrombotics/antiplatelets; Z79.811 Long term (current) use of aromatase inhibitors; Z79.899 Other long term (current) drug therapy; Z45.09 Encounter for adjustment and management of other cardiac device | CPT/HCPCS: 93291; 93005 ==

== ENCOUNTER → 2025-10-02 00:20 | Outpatient (CLI) | payer MEDICARE, BC, SELFPAY ==
--- NOTE | 2025-10-02 | DI.RAD_ITS ---
Exam(s) XR CHEST 2V PA LATERAL EXAM: XR CHEST 2V PA LATERAL CLINICAL HISTORY: C64.9 Renal cell carcinoma, unspecified laterality TECHNIQUE: 2D digital imaging was performed of the chest. Two images were obtained. PA and lateral views were obtained. COMPARISON: CR XR CHEST 2V PA LATERAL from 11/18/2023 CR XR CHEST 2V PA LATERAL from 07/20/2024 FINDINGS: MEDIASTINUM: Normal. HEART: Normal. PULMONARY VASCULATURE: Normal. There is tortuosity of the thoracic aorta. LUNGS: Clear. PLEURAL SPACE: No pleural effusion or pneumothorax. BONE:Within normal limits for the patient's age. Sternal wires are in place. There is an intramedullary flora again seen in the left humerus. OTHER FINDINGS:There is a moderate 10 device again seen in the soft tissues of the left chest wall. IMPRESSION: No acute pulmonary findings. DATA REPOSITORY: RADIATION DOSE DELIVERED:
--- NOTE | 2025-10-02 | DI.MRI_ITS ---
Exam(s) MR ABDOMEN WO/W EXAM: MR ABDOMEN WO/W CLINICAL HISTORY: C64.9 History of RCC s/p LT partial Nephrectomy TECHNIQUE: Multiplanar multisequence MRI was performed with both pre and post contrast infused sequences. Contrast injected sequences were performed following IV injection of cc of Dotarem. COMPARISON: MR MR ABDOMEN WO/W from 07/20/2024 MR MR LUMBAR SPINE WO from 07/20/2024 FINDINGS: VISUALIZED LUNG BASES: No pleural effusions evident. There is no ascites evident. LIVER: No focal hepatic lesions identified in the field of view of this study. BILIARY: Cholelithiasis is again evident. There is no gallbladder wall edema nor pericholecystic fluid. The CBD is not dilated. PANCREAS: There is no evidence of pancreatic mass nor dilatation of the pancreatic duct. SPLEEN: Spleen is not enlarged and there are no intrasplenic lesions.Splenic and portal veins are patent ADRENALS: 1 small nodule in each adrenal gland is unchanged from 07/20/2024. These are in the medial limb of the right adrenal gland and at the genu of the left adrenal gland. These are probably adenomas. KIDNEYS: The previously described collection at the level the superior aspect of the left kidney is again noted and exhibits relatively similar size from the study of 07/20/2024. It presently measures 3.2 x 3.2 x 3.0 cm.It is again composed of fluid and fat signal and there is some dependent debris therein on today's study. This finding is most probably related to post interventional procedure. There does not appear to be recurrence of a solid mass at this level nor elsewhere in the left kidney. Small cortical cysts are again noted in the opposite-right kidney. There is no hydronephrosis on either side. ABDOMINAL AORTA: Not enlarged and there is no significant para-aortic adenopathy. ANTERIOR ABDOMINAL WALL/GI: There is no evidence of significant anterior abdominal wall hernia in the field of view of this study.Is no evidence of obvious bowel obstruction. OSSEOUS: Benign intraosseous hemangiomas in lower thoracic vertebra appear unchanged from prior 07/20/2024 study IMPRESSION: 1. Compared to the prior MRI scan of July 2024 there is relatively little change in the size of the previously described postsurgical finding in the upper pole the left kidney, as described above. No new additional left kidney findings. No hydronephrosis. 2. Tiny benign cysts are again noted in the opposite-right kidney. 3. Cholelithiasis again noted without evidence of acute cholecystitis. DATA REPOSITORY:
[2025-10-02] MEDS: Gadoterate meglumine 20 ML VIAL IJ (12:14)
[2025-10-02] MEDS: Normal Saline - Diluent 50 ML VIAL IJ (12:15)
== END ==
LOC: DI 00:20
PROVIDERS: PCP Nurse Practitioner Family; Visit Provider Surgery
DX: C64.9 Malignant neoplasm of unspecified kidney, except renal pelvis (principal)
CPT/HCPCS: 74183; 71046